=== PATIENT | male | born 1925 | race Caucasian/White ===

== ENCOUNTER 2017-02-13 02:28 | Emergency (ER) | payer OTHER ==
[2017-02-13 02:39] VITALS: BP 121/78
--- NOTE | 2017-02-13 02:49 | EDM.PDOC ---
ED HPI GENERAL MEDICAL PROBLEM - General Chief Complaint: Chest Pain Stated Complaint: [facility] Time Seen by Provider: 02/13/17 02:35 Source of Information: Reports: Patient, RN notes reviewed, Other (Nurse from Assisted Living) History Limitations: Reports: Other (Patient has dementia) - History of Present Illness INITIAL COMMENTS - FREE TEXT/NARRATIVE: The patient states that he was woken around 01:15 this morning with sharp left- sided chest pain. The pain is worse with deep breaths. He indicates the left side of his chest, inferior to his left axilla. He took 3 sublingual nitroglycerin, and when EMS arrived, they gave him 4 baby aspirin and one nitroglycerin spray. The patient reports that his pain continues. He denies associated symptoms, such as dyspnea nausea, diaphoresis, or sense of impending doom. The patient has a known history of CAD and NM is, however, due to dementia, he cannot reliably state whether or this pain is similar to prior cardiac pain. Chest Pain Score (Numeric/FACES): 5 - Related Data Allergies Allergy/AdvReac Type Severity Reaction Status Date / Time tapentadol Allergy Unknown Other Verified 06/03/16 05:38 iodine Allergy severe Verified 06/03/16 05:38 shellfish derived Allergy severe Verified 06/03/16 05:38 Home Meds: Home Meds Acetaminophen [Tylenol] 650 mg PO 0600,1400,2000 04/11/16 [History] Allopurinol [Zyloprim] 50 mg PO MOWEFR 04/11/16 [History] Carvedilol [Coreg] 12.5 mg PO 0800,1800 04/11/16 [History] Cholecalciferol (Vitamin D3) [Vitamin D3] 2,000 unit PO DAILY 04/11/16 [History] Clopidogrel [Plavix] 75 mg PO DAILY 04/11/16 [History] Donepezil [Aricept] 10 mg PO BEDTIME 04/11/16 [History] Finasteride 5 mg PO ACDINNER 04/11/16 [History] Furosemide 80 mg PO DAILY 04/11/16 [History] Levothyroxine Sodium [Levoxyl] 50 mcg PO DAILY 04/11/16 [History] Magnesium Oxide 400 mg PO DAILY 04/11/16 [History] Nitroglycerin [Nitrostat] 0.4 mg SL Q5M PRN 04/11/16 [History] Potassium Chloride [Klor-Con M20] 20 meq PO TID 04/11/16 [History] Pramipexole Di-HCl [Mirapex] 0.125 mg PO DAILY 04/11/16 [History] Pravastatin Sodium [Pravachol] 40 mg PO ACDINNER 04/11/16 [History] Tamsulosin HCl [Flomax] 0.8 mg PO 1800 04/11/16 [History] Aspirin [Ecotrin] 81 mg PO DAILY 04/19/16 [History] Carboxymethylcellulose Sodium [Refresh Tears 0.5%] 1 drop EYEBOTH 0800,1200, 2000 04/19/16 [History] Dextran 70/Hypromellose [Artificial Tears] 1 drop EYERT Q2H PRN 04/19/16 [ History] Dextromethorphan/guaiFENesin [Robitussin DM] 10 ml PO TID PRN 04/19/16 [History] Ranitidine [Zantac] 150 mg PO ACBREAKFAST 04/19/16 [History] Vit C/E/Zn/Coppr/Lutein/Zeaxan [Preservision Areds 2 Softgel] 2 cap PO ACDINNER 04/19/16 [History] Ferrous Sulfate 1 mg PO DAILY 08/31/16 [History] Metolazone 2.5 mg PO MOTH 08/31/16 [History] Furosemide [Lasix] 40 mg PO Q48H 02/13/17 [History] Gabapentin [Neurontin] 200 mg PO BID 02/13/17 [History] Sertraline [Zoloft] 25 mg PO DAILY 02/13/17 [History] Past Medical History HEENT History: Reports: Cataract, Hard of hearing, Impaired vision, Macular degeneration Cardiovascular History: Reports: Afib, CAD, Heart Failure, High cholesterol, [place] Respiratory History: Reports: COPD Gastrointestinal History: Reports: GERD Genitourinary History: Reports: BPH Musculoskeletal History: Reports: Gout, Osteoarthritis Neurological History: Reports: Alzheimers disease, CVA, Neuropathy, diabetic Endocrine/Metabolic History: Reports: Diabetes, type II Hematologic History: Reports: Anemia - Past Surgical History Cardiovascular Surgical History: Reports: Coronary artery stent GI Surgical History: Reports: Appendectomy Neurological Surgical History: Reports: Lumbar spine Social & Family History - Family History Family Medical History: Noncontributory - Tobacco Use Smoking Status *Q: Former Smoker Years of Tobacco use: 15 Packs/Tins Daily: 1 Used Tobacco, but Quit: Yes Month Tobacco Last Used: 40 yrs Second Hand Smoke Exposure: No - Caffeine Use Caffeine Use: Reports: Coffee Other Caffeine Use: 2 cups daily - Alcohol Use Days Per Week of Alcohol Use: 0 - Recreational Drug Use Recreational Drug Use: No - Living Situation & Occupation Living situation: Reports: extended care facility (Current living at [facility]) Occupation: retired ED ROS GENERAL - Review of Systems Review Of Systems: See Below Constitutional: Reports: no symptoms HEENT: Reports: No symptoms Respiratory: Reports: No Symptoms Cardiovascular: Reports: No symptoms Endocrine: Reports: no symptoms GI/Abdominal: Reports: No symptoms : Reports: no symptoms Musculoskeletal: Reports: no symptoms Skin: Reports: no symptoms Neurological: Reports: No Symptoms Psychiatric: Reports: No symptoms Hematologic/Lymphatic: Reports: no symptoms Immunologic: Reports: no symptoms ED EXAM, GENERAL - Physical Exam Exam: See Below Exam Limited By: No limitations General Appearance: alert, WD/WN, no apparent distress Eye Exam: bilateral eye: EOMI, normal inspection Ears: normal external exam, hearing grossly normal Ear Exam: bilateral ear: auricle normal Nose: normal inspection, no blood Throat/Mouth: Normal inspection, Normal lips, Normal voice, No airway compromise Head: atraumatic, normocephalic Neck: normal inspection, full range of motion Respiratory/Chest: no respiratory distress, lungs clear, normal breath sounds, no accessory muscle use, other (Reproducible tenderness to palpation along the left midaxillary line, at approximately the sixth intercostal space. No visible abnormality to this area, such as swelling, erythema, ecchymosis, or rash. No crepitus to palpation. No rub on auscultation of this area.) Cardiovascular: normal peripheral pulses, regular rate, rhythm, no edema, no gallop, no JVD, no murmur, no rub Peripheral Pulses: 4+: radial (L), radial (R) GI/Abdominal: normal bowel sounds, soft, non tender, no organomegaly, no distention, no abnormal bruit, no mass (Male) Exam: Deferred Rectal (Males) Exam: Deferred Extremities: normal inspection, normal range of motion, no pedal edema, normal capillary refill Neurological: alert, no motor/sensory deficits Psychiatric: normal affect Skin Exam: Warm, Dry, Intact, Normal color, No rash Lymphatic: no adenopathy EKG INTERPRETATION EKG Date: 02/13/17 Time: 02:33 Rhythm: a-fib Rate (beats/min): 74 QRS: other (V-paced) Comparison: no change (09/01/2016) Course - Vital Signs Last Recorded V/S: Last Vital Signs Temp 36.3 C 02/13/17 02:33 Pulse 74 02/13/17 02:33 Resp 10 L 02/13/17 02:33 BP 121/78 02/13/17 02:33 Pulse Ox 94 L 02/13/17 02:33 - Orders/Labs/Meds Orders: Active Orders 24 hr Category Date Time Status EKG Documentation Completion [RC] STAT Care 02/13/17 02:35 Active Chest 1V Frontal [CR] Stat Exams 02/13/17 02:36 Taken Labs: Laboratory Tests 02/13/17 02/13/17 02/13/17 Range/Units 02:20 02:20 02:20 WBC 5.40 (4.23-9.07) K/mm3 RBC 4.14 L (4.63-6.08) M/mm3 Hgb 12.4 L (13.7-17.5) gm/L Hct 38.7 L (40.1-51.0) % MCV 93.5 H (79.0-92.2) fl MCH 30.0 (25.7-32.2) pg MCHC 32.0 L (32.2-35.5) g/dl RDW Std Deviation 52.1 H (35.1-43.9) fL Plt Count 190 (163-337) K/mm3 MPV 9.4 (9.4-12.3) fl Neutrophils % (Manual) 53 (40-60) % Band Neutrophils % 0 (0-10) % Lymphocytes % (Manual) 32 (20-40) % Atypical Lymphs % 0 % Monocytes % (Manual) 11 H (2-10) % Eosinophils % (Manual) 3 (0.8-7.0) % Basophils % (Manual) 1 (0.2-1.2) Platelet Estimate Adequate Plt Morphology Comment See note Anisocytosis 1+ slight RBC Morph Comment Not Reportable PT 11.1 (8.0-13.0) SECONDS INR 1.02 APTT 25 (22-36) SECONDS D-Dimer, Quantitative 0.87 H (0.19-0.59) mg/L Sodium 140 (136-145) mEq/L Potassium 3.7 (3.5-5.1) mEq/L Chloride 100 (98-107) mEq/L Carbon Dioxide 33 H (21-32) mEq/L Anion Gap 10.7 (5-15) BUN 55 H (7-18) mg/dL Creatinine 1.8 H (0.7-1.3) mg/dL Est Cr Clr Drug Dosing TNP Estimated GFR (MDRD) 36 (>60) mL/min BUN/Creatinine Ratio 30.6 H (14-18) Glucose 101 (83-115) mg/dL Calcium 9.1 (8.5-10.1) mg/dL Total Bilirubin 0.5 (0.2-1.0) mg/dL AST 16 (15-37) U/L ALT 18 (16-63) U/L Alkaline Phosphatase 80 (46-116) U/L Troponin I 0.028 (0.00-0.056) ng/mL B-Natriuretic Peptide (0-100) pg/mL Total Protein 6.9 (6.4-8.2) g/dl Albumin 3.6 (3.4-5.0) g/dl Globulin 3.3 gm/dL Albumin/Globulin Ratio 1.1 (1-2) // Range/Units 02:20 WBC (4.23-9.07) K/mm3 RBC (4.63-6.08) M/mm3 Hgb (13.7-17.5) gm/L Hct (40.1-51.0) % MCV (79.0-92.2) fl MCH (25.7-32.2) pg MCHC (32.2-35.5) g/dl RDW Std Deviation (35.1-43.9) fL Plt Count (163-337) K/mm3 MPV (9.4-12.3) fl Neutrophils % (Manual) (40-60) % Band Neutrophils % (0-10) % Lymphocytes % (Manual) (20-40) % Atypical Lymphs % % Monocytes % (Manual) (2-10) % Eosinophils % (Manual) (0.8-7.0) % Basophils % (Manual) (0.2-1.2) Platelet Estimate Plt Morphology Comment Anisocytosis RBC Morph Comment PT (8.0-13.0) SECONDS INR APTT (22-36) SECONDS D-Dimer, Quantitative (0.19-0.59) mg/L Sodium (136-145) mEq/L Potassium (3.5-5.1) mEq/L Chloride (98-107) mEq/L Carbon Dioxide (21-32) mEq/L Anion Gap (5-15) BUN (7-18) mg/dL Creatinine (0.7-1.3) mg/dL Est Cr Clr Drug Dosing Estimated GFR (MDRD) (>60) mL/min BUN/Creatinine Ratio (14-18) Glucose (83-115) mg/dL Calcium (8.5-10.1) mg/dL Total Bilirubin (0.2-1.0) mg/dL AST (15-37) U/L ALT (16-63) U/L Alkaline Phosphatase (46-116) U/L Troponin I (0.00-0.056) ng/mL B-Natriuretic Peptide 279 H (0-100) pg/mL Total Protein (6.4-8.2) g/dl Albumin (3.4-5.0) g/dl Globulin gm/dL Albumin/Globulin Ratio (1-2) - Radiology Interpretation Free Text/Narrative:: Portable chest radiograph does not appear to demonstrate any acute abnormalities. Cardiac silhouette is at the upper limits of normal for an AP view. No pulmonary vascular congestion. No pleural effusions. No focal infiltrate. No pneumothorax. Left-sided single lead pacer noted. Formal read per the Radiologist pending. - Re-Assessments/Exams Free Text/Narrative Re-Assessment/Exam: 02/13/17 03:32 The patient's d-dimer is modestly elevated at 0.87, however, the patient is noted to have a renal dysfunction with a creatinine of 1.8, which, along with the patient's age, is likely responsible for the elevated D-dimer. Pulmonary embolus is not highly suspected, therefore a CT angiogram of the chest is not recommended. Based on the patient's history and physical examination, the patient's left sided chest pain is most likely musculoskeletal in etiology. Departure - Departure Time of Disposition: 03:36 Disposition: Home, Self-Care 01 Condition: good Clinical Impression: Left-sided chest wall pain Forms: ED Department Discharge Additional Instructions: Mr. Marino was seen in the emergency room for left-sided chest pain. On examination, his chest pain was reproducible to palpation of the left side of his chest. Workup in the ER included blood work, an ECG, and a chest x-ray. His entire workup was unremarkable. His chest pain appears to be musculoskeletal in etiology. We recommended Tylenol or ibuprofen as needed for discomfort. If this type of pain it occurs again, we DO NOT recommend he be given a nitroglycerin. If any other problems, please do not hesitate to return Mr. Marino to the ER. - My Orders Last 24 Hours: My Active Orders 02/13/17 02:35 EKG Documentation Completion [RC] STAT 02/13/17 02:36 Chest 1V Frontal [CR] Stat - Assessment/Plan Last 24 Hours: My Active Orders 02/13/17 02:35 EKG Documentation Completion [RC] STAT 02/13/17 02:36 Chest 1V Frontal [CR] Stat
--- NOTE | 2017-02-13 11:52 | CR ---
Chest: Frontal view of the chest was obtained. Comparison: Previous chest x-ray of 11/09/16. Heart size slightly enlarged. Tortuous thoracic aorta is seen. Previous cervical spine surgery noted. Surgical clips seen within the neck. Pacemaker is present. Lungs are clear with no acute infiltrates. Impression: 1. Mild cardiomegaly and other incidental findings. Nothing acute is identified on frontal chest x-ray. Diagnostic code #2
== END 2017-02-13 03:50 | disposition home or self-care (01) ==
LOC: JD.ED 02:28
DX: R07.9 Chest pain, unspecified (principal); I25.10 Atherosclerotic heart disease of native coronary artery without angina pectoris; I50.9 Heart failure, unspecified; E78.00 Pure hypercholesterolemia, unspecified; J44.9 Chronic obstructive pulmonary disease, unspecified; K21.9 Gastro-esophageal reflux disease without esophagitis; N40.0 Benign prostatic hyperplasia without lower urinary tract symptoms; M19.90 Unspecified osteoarthritis, unspecified site; G30.9 Alzheimer's disease, unspecified; F02.80 Dementia in other diseases classified elsewhere, unspecified severity, without behavioral disturbance, psychotic disturbance, mood disturbance, and anxiety; Z79.82 Long term (current) use of aspirin; Z79.899 Other long term (current) drug therapy; E11.40 Type 2 diabetes mellitus with diabetic neuropathy, unspecified; Z86.73 Personal history of transient ischemic attack (TIA), and cerebral infarction without residual deficits; D64.9 Anemia, unspecified; Z87.891 Personal history of nicotine dependence
CPT/HCPCS: 36415; 71010; 71010-26; 80053; 83880; 84484; 85025; 85379; 85610; 85730; 93005; 99284; 99285-25

== ENCOUNTER 2017-03-07 19:00 | Emergency (ER) | payer MEDICARE, OTHER ==
--- NOTE | 2017-03-07 19:33 | EDM.PDOC ---
ED HPI NEURO - General Chief Complaint: Neurological Problem Stated Complaint: FELL AND HIT HEAD Time Seen by Provider: 03/07/17 19:04 Source of Information: Reports: Patient, Family History Limitations: Reports: No limitations - History of Present Illness INITIAL COMMENTS - FREE TEXT/NARRATIVE: This is an 89-year-old male. Early this morning he apparently was in the bathroom and the patient states that he passed out and fell hitting the back of his head. The family is not certain whether he passed out or not. They did find him on the floor and he was unable to get up. He has been more lethargic over the last couple of days according to the family they're not certain if this was related to the new medication they started him on about a week ago which is carbidopa levodopa. He does not have a history of Parkinson's disease. They're not certain why he is on this medication. When I speak to the patient he is awake and alert complains of some pain on the back of his head where he hit his head. He denies any neck pain no back pain no buttock pain and no extremity pain. He does have a history of a pacemaker and he denies any chest pain or belly pain. They checked his urine on Friday or Friday of this week and it was normal according to the family. The family does states that he has been much weaker over the last couple of days. - Related Data Allergies/ADRs: Allergies Allergy/AdvReac Type Severity Reaction Status Date / Time tapentadol Allergy Unknown Other Verified 06/03/16 05:38 iodine Allergy severe Verified 06/03/16 05:38 shellfish derived Allergy severe Verified 06/03/16 05:38 Home Meds: Home Meds Acetaminophen [Tylenol] 650 mg PO TID 04/11/16 [History] Allopurinol [Zyloprim] 50 mg PO MOWEFR 04/11/16 [History] Carvedilol [Coreg] 12.5 mg PO BID 04/11/16 [History] Cholecalciferol (Vitamin D3) [Vitamin D3] 2,000 unit PO DAILY 04/11/16 [History] Clopidogrel [Plavix] 75 mg PO DAILY 04/11/16 [History] Donepezil [Aricept] 10 mg PO BEDTIME 04/11/16 [History] Finasteride 5 mg PO ACDINNER 04/11/16 [History] Furosemide 80 mg PO DAILY 04/11/16 [History] Levothyroxine Sodium [Levoxyl] 50 mcg PO DAILY 04/11/16 [History] Magnesium Oxide 400 mg PO DAILY 04/11/16 [History] Nitroglycerin [Nitrostat] 0.4 mg SL Q5M PRN 04/11/16 [History] Potassium Chloride [Klor-Con M20] 20 meq PO TID 04/11/16 [History] Pramipexole Di-HCl [Mirapex] 0.125 mg PO DAILY 04/11/16 [History] Pravastatin Sodium [Pravachol] 40 mg PO ACDINNER 04/11/16 [History] Tamsulosin HCl [Flomax] 0.8 mg PO 1800 04/11/16 [History] Aspirin [Ecotrin] 81 mg PO DAILY 04/19/16 [History] Carboxymethylcellulose Sodium [Refresh Tears 0.5%] 1 drop EYEBOTH 0800,1200, 2000 04/19/16 [History] Dextran 70/Hypromellose [Artificial Tears] 1 drop EYERT Q2H PRN 04/19/16 [ History] Dextromethorphan/guaiFENesin [Robitussin DM] 10 ml PO TID PRN 04/19/16 [History] Ranitidine [Zantac] 150 mg PO ACBREAKFAST 04/19/16 [History] Vit C/E/Zn/Coppr/Lutein/Zeaxan [Preservision Areds 2 Softgel] 2 cap PO ACDINNER 04/19/16 [History] Ferrous Sulfate 1 mg PO DAILY 08/31/16 [History] Metolazone 2.5 mg PO MOTH 08/31/16 [History] Furosemide [Lasix] 40 mg PO Q48H 02/13/17 [History] Gabapentin [Neurontin] 200 mg PO BID 02/13/17 [History] Sertraline [Zoloft] 25 mg PO DAILY 02/13/17 [History] Carbidopa/Levodopa [Carbidopa-Levo 10-100 mg Odt] 1 tab PO TID 03/07/17 [History ] Docusate Sodium [Colace] 100 mg PO BID 03/07/17 [History] Pramipexole Di-HCl [Mirapex] 0.125 mg PO BEDTIME 03/07/17 [History] Past Medical History HEENT History: Reports: Cataract, Hard of hearing, Impaired vision, Macular degeneration Cardiovascular History: Reports: Afib, CAD, Heart Failure, High cholesterol, [place] Respiratory History: Reports: COPD Gastrointestinal History: Reports: GERD Genitourinary History: Reports: BPH Musculoskeletal History: Reports: Gout, Osteoarthritis Neurological History: Reports: Alzheimers disease, CVA, Neuropathy, diabetic Psychiatric History: Reports: Dementia Endocrine/Metabolic History: Reports: Diabetes, type II Hematologic History: Reports: Anemia - Infectious Disease History Infectious Disease History: Reports: Other (see below) Other Infectious Disease History: unknown - Past Surgical History Cardiovascular Surgical History: Reports: Coronary artery stent GI Surgical History: Reports: Appendectomy Neurological Surgical History: Reports: Lumbar spine Dermatological Surgical History: Reports: None Social & Family History - Family History Family Medical History: Noncontributory - Tobacco Use Smoking Status *Q: Former Smoker Years of Tobacco use: 15 Packs/Tins Daily: 1 Used Tobacco, but Quit: Yes Month Tobacco Last Used: 40 yrs ago Second Hand Smoke Exposure: No - Caffeine Use Caffeine Use: Reports: Coffee Other Caffeine Use: 2 cups daily - Alcohol Use Days Per Week of Alcohol Use: 0 - Recreational Drug Use Recreational Drug Use: No - Living Situation & Occupation Living situation: Reports: extended care facility ([facility] living at [facility]) Occupation: retired ED ROS GENERAL - Review of Systems Review Of Systems: See Below Constitutional: Reports: weakness. Denies: fever, chills HEENT: Reports: No symptoms Respiratory: Denies: Shortness of Breath, Wheezing, Cough Cardiovascular: Denies: Chest pain GI/Abdominal: Denies: Abdominal pain : Reports: no symptoms Musculoskeletal: Reports: other (Patient has a bruise to the posterior scalp but no hematoma) Skin: Reports: other (Multiple bruising to his upper extremities noted) Neurological: Reports: Dizziness, Difficulty Walking, Weakness. Denies: Headache Psychiatric: Reports: No symptoms Hematologic/Lymphatic: Reports: no symptoms Immunologic: Reports: no symptoms ED EXAM, NEURO - Physical Exam Exam: See Below Exam Limited By: No limitations General Appearance: alert, no apparent distress Eye Exam: bilateral eye: normal inspection Ears: normal external exam Nose: normal inspection Throat/Mouth: Normal inspection, Normal voice, No airway compromise Head Exam: normocephalic, other (There is approximate silver dollar size bruise to his posterior scalp slightly to the right but there is no hematoma there is no laceration or bleeding noted) Neck: supple, non-tender Respiratory/Chest: no respiratory distress, lungs clear, normal breath sounds, other (Patient has a pacemaker in the left upper chest noted) Cardiovascular: regular rate, rhythm, no murmur, other (Monitor shows a paced rhythm) GI/Abdominal: soft, non tender, no distention Neurological: alert, other (The patient answers questions appropriately) Back Exam: normal inspection, full range of motion, other (There is no obvious bruising or contusions to his back, there is no midline thoracic or lumbar tenderness noted) Extremities: normal range of motion, other (He has multiple bruising to his upper extremities noted) Psychiatric: normal mood Skin Exam: Warm, Dry, Other (Very poor skin turgor) Course - Vital Signs Last Recorded V/S: Last Vital Signs Temp 97.6 F 03/07/17 19:08 Pulse 60 03/07/17 23:00 Resp 17 03/07/17 23:00 BP 137/63 03/07/17 23:00 Pulse Ox 95 03/07/17 23:00 - Orders/Labs/Meds Orders: Active Orders 24 hr Category Date Time Status EKG 12 Lead [EKG Documentation Completion] [RC] STAT Care 03/07/17 19:27 Active Chest 1V Frontal [CR] Stat Exams 03/07/17 19:26 Taken Sodium Chloride 0.9% [Normal Saline] 1,000 ml Med 03/07/17 20:30 Active IV ASDIRECTED Medication Orders Sodium Chloride (Normal Saline) 1,000 mls @ 500 mls/hr IV ASDIRECTED IAN Last Admin: 03/07/17 20:43 Dose: 500 mls/hr Labs: Laboratory Tests 03/07/17 03/07/17 03/07/17 Range/Units 19:39 19:39 22:54 WBC 9.03 (4.23-9.07) K/mm3 RBC 4.78 (4.63-6.08) M/mm3 Hgb 14.3 (13.7-17.5) gm/L Hct 43.7 (40.1-51.0) % MCV 91.4 (79.0-92.2) fl MCH 29.9 (25.7-32.2) pg MCHC 32.7 (32.2-35.5) g/dl RDW Std Deviation 49.2 H (35.1-43.9) fL Plt Count 154 L (163-337) K/mm3 MPV 9.0 L (9.4-12.3) fl Neut % (Auto) 74.3 H (34.0-67.9) % Lymph % (Auto) 15.4 L (21.8-53.1) % [place] % (Auto) 7.6 (5.3-12.2) % Eos % (Auto) 2.4 (0.8-7.0) Baso % (Auto) 0.1 (0.1-1.2) % Neut # (Auto) 6.70 H (1.78-5.38) K/mm3 Lymph # (Auto) 1.39 (1.32-3.57) K/mm3 [place] # (Auto) 0.69 (0.30-0.82) K/mm3 Eos # (Auto) 0.22 (0.04-0.54) K/mm3 Baso # (Auto) 0.01 (0.01-0.08) K/mm3 Sodium 138 138 (136-145) mEq/L Potassium 3.2 L 3.2 L (3.5-5.1) mEq/L Chloride 97 L 98 (98-107) mEq/L Carbon Dioxide 32 34 H (21-32) mEq/L Anion Gap 12.2 9.2 (5-15) BUN 79 H 76 H (7-18) mg/dL Creatinine 1.9 H 1.7 H (0.7-1.3) mg/dL Est Cr Clr Drug Dosing 28.93 32.33 mL/min Estimated GFR (MDRD) 34 38 (>60) mL/min BUN/Creatinine Ratio 41.6 H 44.7 H (14-18) Glucose 129 H 106 (83-115) mg/dL Calcium 9.3 8.6 (8.5-10.1) mg/dL Total Bilirubin 0.7 (0.2-1.0) mg/dL AST 15 (15-37) U/L ALT 10 L (16-63) U/L Alkaline Phosphatase 76 (46-116) U/L Troponin I 0.051 (0.00-0.056) ng/mL Total Protein 7.0 (6.4-8.2) g/dl Albumin 3.7 (3.4-5.0) g/dl Globulin 3.3 gm/dL Albumin/Globulin Ratio 1.1 (1-2) Meds: Medications Generic Name Dose Route Start Last Admin Trade Name Freq PRN Reason Stop Dose Admin Sodium Chloride 1,000 mls @ 500 mls/hr 03/07/17 20:30 03/07/17 20:43 Normal Saline IV 500 mls/hr ASDIRECTED IAN Administration Discontinued Medications Generic Name Dose Route Start Last Admin Trade Name Freq PRN Reason Stop Dose Admin Potassium Bicarbonate 25 meq 03/07/17 22:20 03/07/17 22:27 Effer-K PO 03/07/17 22:21 25 meq ONETIME ONE Administration - Radiology Interpretation Free Text/Narrative:: Chest x-ray does not show any acute changes. CT scan shows some mild soft tissue swelling of the posterior right scalp there is no obvious intracranial abnormality seen no skull fracture - Re-Assessments/Exams Free Text/Narrative Re-Assessment/Exam: 03/07/17 23:52 I spoke to the patient and the family regarding the dehydration as being part of the problem of his weakness. Also spoken about the BUN is elevation can cause weakness as well as confusion. I did give him a liter of fluids and noticed that there was a decrease slightly in the BUN as well the creatinine suggesting that these are repair will with by mouth fluid hydration. I also spoke to the family regarding his Lasix intake and his potassium intake and may need to followup with her family doctor to see if he can cut back on the Lasix since obviously the patient is not taking a lot of fluids and he is being dehydrated by the Lasix. Departure - Departure Time of Disposition: 23:53 Disposition: Home, Self-Care 01 Condition: fair Clinical Impression: Dehydration, moderate, Renal insufficiency, mild, Elevated BUN, Hypokalemia Forms: ED Department Discharge Additional Instructions: Began fluid hydration in the morning but around 3 PM or so cut back so he is not up at night time having to urinate, followup with his family doctor about modifying the Lasix since his fluid intake is much less the Lasix is dehydrating him, continue with the potassium as prescribed, return to the ER as needed - My Orders Last 24 Hours: My Active Orders 03/07/17 19:26 Chest 1V Frontal [CR] Stat 03/07/17 19:27 EKG 12 Lead [EKG Documentation Completion] [RC] STAT 03/07/17 20:30 Sodium Chloride 0.9% [Normal Saline] 1,000 ml IV ASDIRECTED - Assessment/Plan Last 24 Hours: My Active Orders 03/07/17 19:26 Chest 1V Frontal [CR] Stat 03/07/17 19:27 EKG 12 Lead [EKG Documentation Completion] [RC] STAT 03/07/17 20:30 Sodium Chloride 0.9% [Normal Saline] 1,000 ml IV ASDIRECTED
--- NOTE | 2017-03-07 20:18 | CT ---
Head CT Technique: Multiple axial sections through the brain were obtained. Intravenous contrast was not utilized. Comparison: Previous head CT study of 11/09/16. Findings: Ventricles along with basal cisterns and sulci over the convexities are moderately prominent. Mild areas of diminished density are noted within the periventricular and subcortical white matter compatible with small vessel ischemic demyelination change. Similar findings are seen within portions of the basal ganglia. No other abnormal parenchymal densities are seen. No evidence of intracranial hemorrhage is seen. No midline shift or mass effect is seen. Mild atherosclerotic calcification is seen within the carotid siphon. Mild soft tissue swelling is seen within the posterior right scalp. Bone window settings were reviewed which shows no skull fracture. Visualized sinuses are clear. Impression: 1. Mild soft tissue swelling within the posterior right scalp. 2. Senescent change as noted above which is fairly stable from previous head CT study. 3. No acute intracranial abnormality is seen. No skull fracture is seen. Diagnostic code #2
[2017-03-07] MEDS ORDERED: Sodium Chloride 0.9% 1,000 ML IV SCH (20:30)
[2017-03-07] MEDS ORDERED: Potassium Bicarbonate/Cit Ac 20 MEQ Effervescent Tab PO ONE (22:20)
[2017-03-07 23:00] VITALS: BP 137/63
--- NOTE | 2017-03-09 09:34 | CR ---
Chest: Portable view of the chest was obtained. Comparison: Previous chest x-ray of 02/13/17. Heart is mildly enlarged. Pacemaker is noted. Previous lower neck surgery is seen. Previous lower cervical spine surgery is noted. Lungs are clear with no acute infiltrates. Impression: 1. Incidental findings as described above. Nothing acute is identified on portable chest x-ray. Diagnostic code #2
== END 2017-03-08 00:08 | disposition home or self-care (01) ==
LOC: JD.ED 19:00
DX: S09.90XA Unspecified injury of head, initial encounter (principal); W18.30XA Fall on same level, unspecified, initial encounter; Y92.002 Bathroom of unspecified non-institutional (private) residence as the place of occurrence of the external cause; E87.6 Hypokalemia; E86.0 Dehydration; N18.4 Chronic kidney disease, stage 4 (severe); I48.91 Unspecified atrial fibrillation; I25.10 Atherosclerotic heart disease of native coronary artery without angina pectoris; I11.0 Hypertensive heart disease with heart failure; I50.9 Heart failure, unspecified; E78.00 Pure hypercholesterolemia, unspecified; J44.9 Chronic obstructive pulmonary disease, unspecified; N40.0 Benign prostatic hyperplasia without lower urinary tract symptoms; K21.9 Gastro-esophageal reflux disease without esophagitis; M19.90 Unspecified osteoarthritis, unspecified site; M10.9 Gout, unspecified; E11.40 Type 2 diabetes mellitus with diabetic neuropathy, unspecified; G30.9 Alzheimer's disease, unspecified; F02.80 Dementia in other diseases classified elsewhere, unspecified severity, without behavioral disturbance, psychotic disturbance, mood disturbance, and anxiety; Z86.73 Personal history of transient ischemic attack (TIA), and cerebral infarction without residual deficits; D64.9 Anemia, unspecified; Z88.8 Allergy status to other drugs, medicaments and biological substances; Z91.013 Allergy to seafood; Z79.899 Other long term (current) drug therapy; Z79.82 Long term (current) use of aspirin; Z95.5 Presence of coronary angioplasty implant and graft; Z87.891 Personal history of nicotine dependence
CPT/HCPCS: 36415; 70450; 71010; 80048; 80053; 84484; 85025; 93005; 96360; 96361; 99284; A9270; J7040

== ENCOUNTER 2017-04-08 08:18 | Inpatient (IN) | payer OTHER ==
[2017-04-08] MEDS ORDERED: Furosemide 40 MG/4 ML VIAL IVPUSH ONE (08:28)
[2017-04-08] MEDS ORDERED: Sodium Chloride 0.9% 10 ML Syringe FLUSH PRN (08:28)
--- NOTE | 2017-04-08 08:31 | EDM.PDOC ---
ED HPI GENERAL MEDICAL PROBLEM - General Chief Complaint: Respiratory Problem Stated Complaint: [facility] Time Seen by Provider: 04/08/17 08:26 Source of Information: Reports: Patient, EMS Notes Reviewed, Long-Term Records History Limitations: Reports: Respiratory Distress (moderate) - History of Present Illness INITIAL COMMENTS - FREE TEXT/NARRATIVE: 89-year-old male transferred from local senior living do to increasing edema and dyspnea developing overnight. Patient states he never slept all night because of shortness of breath. Patient suffers from chronic congestive heart failure. His health has been bleeding quite significantly over the last 6 months. Aortic stenosis. known coronary artery disease with ischemic component to his cardiomyopathy. He remains on Plavix at this time. He did receive an extra dose of oral Lasix 40 mg one o'clock in the morning which did not seem to help at all. Requiring 4 L of oxygen per nasal cannula to keep him at 94%. Denies cough or sputum production. Denies fever or chills. No hemoptysis. No appetite did not eat any breakfast this morning it's unclear whether he received any of his medications. Onset: Gradual (Over the last 2-3 days) Onset Date: 04/05/17 Duration: Hour(s): Location: Reports: Chest (Shortness of breath) Quality: Reports: Same as Previous Episode (This), Other Severity: Moderate Improves with: Reports: None Worsens with: Reports: Other, Movement (Supine position) Context: Denies: Activity, Exercise, Lifting, Sick Contact, Trauma, Other Associated Symptoms: Reports: Cough (Nonproductive), Loss of Appetite, Malaise, Shortness of Breath, Weakness. 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 (At 4 L per minute.) - Related Data Allergies Allergy/AdvReac Type Severity Reaction Status Date / Time iodine Allergy severe Verified 04/08/17 08:30 shellfish derived Allergy severe Verified 04/08/17 08:30 tape Allergy Cannot Uncoded 04/08/17 09:14 Remember Home Meds: Home Meds Acetaminophen [Tylenol] 650 mg PO Q8H 04/11/16 [History] Allopurinol [Zyloprim] 50 mg PO MOWEFR 04/11/16 [History] Carvedilol [Coreg] 12.5 mg PO BID 04/11/16 [History] Cholecalciferol (Vitamin D3) [Vitamin D3] 2,000 unit PO DAILY 04/11/16 [History] Donepezil [Aricept] 10 mg PO BEDTIME 04/11/16 [History] Finasteride 5 mg PO ACDINNER 04/11/16 [History] Furosemide 40 mg PO DAILY 04/11/16 [History] Levothyroxine Sodium [Levoxyl] 50 mcg PO DAILY 04/11/16 [History] Magnesium Oxide 400 mg PO DAILY 04/11/16 [History] Nitroglycerin [Nitrostat] 0.4 mg SL Q5M PRN 04/11/16 [History] Potassium Chloride [Klor-Con M20] 20 meq PO DAILY 04/11/16 [History] Pravastatin Sodium [Pravachol] 40 mg PO ACDINNER 04/11/16 [History] Tamsulosin HCl [Flomax] 0.8 mg PO 1800 04/11/16 [History] Carboxymethylcellulose Sodium [Refresh Tears 0.5%] 1 drop EYEBOTH TID 04/19/16 [ History] Dextromethorphan/guaiFENesin [Robitussin DM] 10 ml PO TID PRN 04/19/16 [History] Ranitidine [Zantac] 150 mg PO ACBREAKFAST 04/19/16 [History] Vit C/E/Zn/Coppr/Lutein/Zeaxan [Preservision Areds 2 Softgel] 2 cap PO ACDINNER 04/19/16 [History] Ferrous Sulfate 1 mg PO DAILY 08/31/16 [History] Gabapentin [Neurontin] 200 mg PO BID 02/13/17 [History] Sertraline [Zoloft] 25 mg PO DAILY 02/13/17 [History] Docusate Sodium [Colace] 100 mg PO BID 03/07/17 [History] Pramipexole Di-HCl [Mirapex] 0.125 mg PO BEDTIME 03/07/17 [History] Past Medical History HEENT History: Reports: Cataract, Hard of Hearing, Impaired Vision, Macular Degeneration Cardiovascular History: Reports: Afib, CAD, Heart Failure, High Cholesterol, OR Respiratory History: Reports: COPD Gastrointestinal History: Reports: GERD Genitourinary History: Reports: BPH Musculoskeletal History: Reports: Gout, Osteoarthritis Neurological History: Reports: Alzheimers Disease, CVA, Neuropathy, Diabetic Psychiatric History: Reports: Dementia Endocrine/Metabolic History: Reports: Diabetes, Type II Hematologic History: Reports: Anemia - Infectious Disease History Infectious Disease History: Reports: Other (See Below) Other Infectious Disease History: unknown - Past Surgical History Cardiovascular Surgical History: Reports: Coronary Artery Stent Neurological Surgical History: Reports: Lumbar Spine Musculoskeletal Surgical History: Reports: Other (See Below) Social & Family History - Family History Family Medical History: Noncontributory - Tobacco Use Smoking Status *Q: Former Smoker Years of Tobacco use: 15 Packs/Tins Daily: 1 Used Tobacco, but Quit: Yes Month Tobacco Last Used: 40 yrs ago Second Hand Smoke Exposure: No - Caffeine Use Caffeine Use: Reports: Coffee Other Caffeine Use: 2 cups daily - Alcohol Use Days Per Week of Alcohol Use: 0 - Recreational Drug Use Recreational Drug Use: No - Living Situation & Occupation Living situation: Reports: Extended Care Facility Occupation: Retired ED ROS GENERAL - Review of Systems Review Of Systems: See Below Constitutional: Reports: Malaise, Weakness, Fatigue, Decreased Appetite. Denies : Fever, Chills, Weight Loss HEENT: Reports: No Symptoms Respiratory: Reports: Shortness of Breath, Cough. Denies: Wheezing, Pleuritic Chest Pain, Sputum (Nonproductive), Hemoptysis, Other Cardiovascular: Reports: Dyspnea on Exertion, Edema (Chronically chronic pain the Lortab), Orthopnea (Last tonight). Denies: No Symptoms, Chest Pain, Claudication, Lightheadedness, Palpitations, PND, Syncope, Other Endocrine: Reports: Fatigue GI/Abdominal: Reports: Constipation, Decreased Appetite : Reports: Frequency, Other (Nocturia x4) Musculoskeletal: Reports: Back Pain Skin: Reports: Pallor (Mild), Bruising (Bruise easily from being on Plavix.) Neurological: Reports: Confusion (At time), Difficulty Walking, Weakness, Gait Disturbance. Denies: Headache, Numbness, Syncope, Tingling, Tremors, Trouble Speaking, Change in Speech Psychiatric: Reports: No Symptoms Hematologic/Lymphatic: Reports: No Symptoms Immunologic: Reports: No Symptoms ED EXAM, GENERAL - Physical Exam Exam: See Below Exam Limited By: Respiratory Distress (Limits his ability to carry on a conversation. He can speak in 2-3 word sentences.) General Appearance: Alert, Other (Appears to have lost weight since I had seen him last. His teeth are not in today.) Eye Exam: Bilateral Eye: Normal Inspection (Mild blepharal pallor.) Ears: Normal TMs Throat/Mouth: Normal Inspection, Normal Lips, Normal Oropharynx, Other (Tongue is moist. Edentulous) Head: Atraumatic, Normocephalic Neck: Normal Inspection, Supple, Non-Tender, Full Range of Motion. No: Lymphadenopathy (L), Lymphadenopathy (R) Respiratory/Chest: Respiratory Distress (Moderate), Rales (Didn't get rales lower 20% of both lung ba.), Other (Pacemaker present in left upper anterior chest.). No: Lungs Clear, Rhonchi, Wheezing, Splinting Cardiovascular: Regular Rate, Rhythm, No Gallop, JVD (3 cm below the right angle of the mandible the), Systolic Murmur (Grade 2 pansystolic ejection murmur heard best at left lower sternal border compatible with aortic stenosis.) . No: Normal Peripheral Pulses (Pulses in his feet are not palpable due to dependent edema.) Peripheral Pulses: 0: Posterior Tibial (L) (Obscured by edema.), Posterior Tibial (R), Dorsalis Pedis (L), Dorsalis Pedis (R), 1+: Femoral (L), Femoral (R) , 2+: Carotid (L), Carotid (R) GI/Abdominal: Hepatomegaly (Liver edge is palpable on deep inspiration.), Other (The abdomen is distended and diffusely tympanitic to percussion compatible with aerophagia. It is firm to palpation.). No: Guarding, Rigid, Rebound, Tender (Male) Exam: No Hernia Back Exam: Normal Inspection, Full Range of Motion. No: CVA Tenderness (L), CVA Tenderness (R) Extremities: Pedal Edema (3+ pitting edema both lower extremities.) Neurological: Alert, CN II-XII Intact (Disoriented to time), Normal Cognition, No Motor/Sensory Deficits. No: Oriented, Normal Gait, Normal Reflexes Psychiatric: Flat Affect Skin Exam: Warm, Dry, Intact, Ecchymosis (Both upper [place]'s on the dorsal aspect.) Course - Vital Signs Last Recorded V/S: Last Vital Signs Temp 36.7 C 04/08/17 08:47 Pulse 64 04/08/17 08:47 Resp 20 04/08/17 08:47 BP 125/66 04/08/17 08:47 Pulse Ox 95 04/08/17 08:47 - Orders/Labs/Meds Orders: Active Orders 24 hr Category Date Time Status EKG Documentation Completion [RC] STAT Care 04/08/17 08:28 Active Oxygen Therapy [RC] ASDIRECTED Care 04/08/17 08:27 Active Peripheral IV Care [RC] . DIRECTED Care 04/08/17 08:28 Active Sodium Chloride 0.9% [Saline Flush] Med 04/08/17 08:28 Active 10 ml FLUSH ASDIRECTED PRN Peripheral IV Insertion Adult [OM.PC] Stat Oth 04/08/17 08:28 Ordered Medication Orders Sodium Chloride (Saline Flush) 10 ml FLUSH ASDIRECTED PRN PRN Reason: Keep Vein Open Last Admin: 04/08/17 09:11 Dose: 10 ml Labs: Laboratory Tests 04/08/17 04/08/17 04/08/17 Range/Units 08:25 08:25 08:25 WBC 9.74 H (4.23-9.07) K/mm3 RBC 3.66 L (4.63-6.08) M/mm3 Hgb 11.2 L (13.7-17.5) gm/L Hct 35.7 L (40.1-51.0) % MCV 97.5 H (79.0-92.2) fl MCH 30.6 (25.7-32.2) pg MCHC 31.4 L (32.2-35.5) g/dl RDW Std Deviation 59.9 H (35.1-43.9) fL Plt Count 185 (163-337) K/mm3 MPV 8.4 L (9.4-12.3) fl Neutrophils % (Manual) 87 H (40-60) % Band Neutrophils % 0 (0-10) % Lymphocytes % (Manual) 8 L (20-40) % Atypical Lymphs % 0 % Monocytes % (Manual) 5 (2-10) % Eosinophils % (Manual) 0 L (0.8-7.0) % Basophils % (Manual) 0 L (0.2-1.2) Platelet Estimate Adequate Plt Morphology Comment Normal Hypochromasia 1+ slight Poikilocytosis 1+ slight Anisocytosis 1+ slight RBC Morph Comment Not Reportable PT 10.7 (8.0-13.0) SECONDS INR 0.98 Sodium (136-145) mEq/L Potassium (3.5-5.1) mEq/L Chloride (98-107) mEq/L Carbon Dioxide (21-32) mEq/L Anion Gap (5-15) BUN (7-18) mg/dL Creatinine (0.7-1.3) mg/dL Est Cr Clr Drug Dosing mL/min Estimated GFR (MDRD) (>60) mL/min BUN/Creatinine Ratio (14-18) Glucose (83-115) mg/dL Calcium (8.5-10.1) mg/dL Magnesium (1.8-2.4) mg/dl Total Bilirubin (0.2-1.0) mg/dL AST (15-37) U/L ALT (16-63) U/L Alkaline Phosphatase (46-116) U/L CK-MB (CK-2) (0-3.6) ng/ml Troponin I (0.00-0.056) ng/mL C-Reactive Protein (<1.0) mg/dL B-Natriuretic Peptide 1118 H (0-100) pg/mL Total Protein (6.4-8.2) g/dl Albumin (3.4-5.0) g/dl Globulin gm/dL Albumin/Globulin Ratio (1-2) TSH 3rd Generation (0.358-3.74) uIU/mL Urine Color (Yellow) Urine Appearance (Clear) Urine pH (5.0-8.0) Ur Specific [place] (1.005-1.030) Urine Protein (Negative) Urine Glucose (UA) (Negative) Urine Ketones (Negative) Urine Occult Blood (Negative) Urine Nitrite (Negative) Urine Bilirubin (Negative) Urine Urobilinogen (0.2-1.0) Ur Leukocyte Esterase (Negative) Urine RBC (0-5) /hpf Urine WBC (0-5) /hpf Ur Epithelial Cells (0-5) /hpf Urine Bacteria (FEW) /hpf Urine Mucus (FEW) /hpf 04/08/17 04/08/17 Range/Units 08:25 08:55 WBC (4.23-9.07) K/mm3 RBC (4.63-6.08) M/mm3 Hgb (13.7-17.5) gm/L Hct (40.1-51.0) % MCV (79.0-92.2) fl MCH (25.7-32.2) pg MCHC (32.2-35.5) g/dl RDW Std Deviation (35.1-43.9) fL Plt Count (163-337) K/mm3 MPV (9.4-12.3) fl Neutrophils % (Manual) (40-60) % Band Neutrophils % (0-10) % Lymphocytes % (Manual) (20-40) % Atypical Lymphs % % Monocytes % (Manual) (2-10) % Eosinophils % (Manual) (0.8-7.0) % Basophils % (Manual) (0.2-1.2) Platelet Estimate Plt Morphology Comment Hypochromasia Poikilocytosis Anisocytosis RBC Morph Comment PT (8.0-13.0) SECONDS INR Sodium 142 (136-145) mEq/L Potassium 4.3 (3.5-5.1) mEq/L Chloride 105 (98-107) mEq/L Carbon Dioxide 29 (21-32) mEq/L Anion Gap 12.3 (5-15) BUN 22 H (7-18) mg/dL Creatinine 1.4 H (0.7-1.3) mg/dL Est Cr Clr Drug Dosing 39.26 mL/min Estimated GFR (MDRD) 48 (>60) mL/min BUN/Creatinine Ratio 15.7 (14-18) Glucose 112 (83-115) mg/dL Calcium 8.9 (8.5-10.1) mg/dL Magnesium 1.9 (1.8-2.4) mg/dl Total Bilirubin 0.9 (0.2-1.0) mg/dL AST 18 (15-37) U/L ALT 32 (16-63) U/L Alkaline Phosphatase 91 (46-116) U/L CK-MB (CK-2) 0.5 (0-3.6) ng/ml Troponin I 0.086 H* (0.00-0.056) ng/mL C-Reactive Protein 3.3 H* (<1.0) mg/dL B-Natriuretic Peptide (0-100) pg/mL Total Protein 6.1 L (6.4-8.2) g/dl Albumin 3.0 L (3.4-5.0) g/dl Globulin 3.1 gm/dL Albumin/Globulin Ratio 1.0 (1-2) TSH 3rd Generation 1.231 (0.358-3.74) uIU/mL Urine Color Yellow (Yellow) Urine Appearance Clear (Clear) Urine pH 6.5 (5.0-8.0) Ur Specific [place] 1.020 (1.005-1.030) Urine Protein Negative (Negative) Urine Glucose (UA) Negative (Negative) Urine Ketones Negative (Negative) Urine Occult Blood Negative (Negative) Urine Nitrite Negative (Negative) Urine Bilirubin Negative (Negative) Urine Urobilinogen 0.2 (0.2-1.0) Ur Leukocyte Esterase Negative (Negative) Urine RBC 0-5 (0-5) /hpf Urine WBC 0-5 (0-5) /hpf Ur Epithelial Cells 0-5 (0-5) /hpf Urine Bacteria Occasional (FEW) /hpf Urine Mucus Not seen (FEW) /hpf Meds: Medications Generic Name Dose Route Start Last Admin Trade Name Freq PRN Reason Stop Dose Admin Sodium Chloride 10 ml 04/08/17 08:28 04/08/17 09:11 Saline Flush FLUSH 10 ml ASDIRECTED PRN Administration Keep Vein Open Discontinued Medications Generic Name Dose Route Start Last Admin Trade Name Freq PRN Reason Stop Dose Admin Furosemide 60 mg 04/08/17 08:28 04/08/17 09:01 Lasix IVPUSH 04/08/17 08:29 60 mg NOW ONE Administration - Radiology Interpretation Free Text/Narrative:: 89-year-old male presents to the ED with an exacerbation of his congestive heart failure. He's had orthopnea for the last 2 nights. He is requiring 4 L of oxygen by nasal cannula to maintain O2 sats of 94% at present. He has rales in the lower 20% of both lung ba. JVD are are elevated. His chronic aortic stenosis. Plan peripheral IV lock. Lasix 60 mg IV. Continue O2 as above. Routine labs include serum magnesium and BNP one view chest x-ray to be obtained. - Re-Assessments/Exams Free Text/Narrative Re-Assessment/Exam: 04/08/17 08:54 ECG shows 100% paced rhythm at 60 per minute. No further analysis attempted. Portable chest x-ray reveals moderate cardiomegaly with evidence of bilateral lower lobar vascular congestion and prominence of pulmonary arteries. No true pleural effusion evident. 04/08/17 09:25 white count is 9.74-87% neutrophils no bands. Hemoglobin is low 11.2 MCV is 97.5. Hematocrit is 35.7. Platelets 185,000. Coags are normal. Sodium 142 potassium 4.3 anion gap is 12.3 BUN is 22 creatinine is 1.4. EGFR is 48. Troponin is elevated at 0.086. CK-MB fraction is normal at 0.5. CRP is 3.3. Albumin is 3.0 magnesium is 1.9. BNP is pending. 04/08/17 09:26 urinalysis is normal. You're having trouble in the lab with BNP and analysis. It is done an i-STAT and is 1118. Out of her contact Dr. Espinal in regards to admission to the hospital for acute exacerbation of heart failure. Elevated troponin appears to be secondary to the congestive heart failure. 04/08/17 10:[address] 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 Admitting diagnoses acute exacerbation of congestive heart failure. Departure - Departure Time of Disposition: 11:00 Disposition: Admitted As Inpatient 68 Condition: poor Clinical Impression: Mild renal insufficiency, Hypoxia Acute exacerbation of CHF (congestive heart failure) Qualifiers: Congestive heart failure type: diastolic Qualified Code(s): I50.33 - Acute on chronic diastolic (congestive) heart failure - Discharge Information - My Orders Last 24 Hours: My Active Orders 04/08/17 08:27 Oxygen Therapy [RC] ASDIRECTED 04/08/17 08:28 EKG Documentation Completion [RC] STAT Peripheral IV Care [RC] . DIRECTED Sodium Chloride 0.9% [Saline Flush] 10 ml FLUSH ASDIRECTED PRN Peripheral IV Insertion Adult [OM.PC] Stat - Assessment/Plan Last 24 Hours: My Active Orders 04/08/17 08:27 Oxygen Therapy [RC] ASDIRECTED 04/08/17 08:28 EKG Documentation Completion [RC] STAT Peripheral IV Care [RC] . DIRECTED Sodium Chloride 0.9% [Saline Flush] 10 ml FLUSH ASDIRECTED PRN Peripheral IV Insertion Adult [OM.PC] Stat
--- NOTE | 2017-04-08 09:51 | CR ---
Chest: Portable view of the chest was obtained. Comparison: Previous chest x-ray of 03/07/17. Heart size is slightly enlarged. Upper mediastinum appears within normal limits for portable technique. Pacemaker noted. Lung markings are increased on both sides which are more prominent than on previous exam. Lungs otherwise are clear. Previous cervical spine surgery and lumbar spine surgery noted. Scattered degenerative endplate spurring also seen within the spine. Impression: 1. Increased lung markings felt compatible with pulmonary vascular congestion. This is an interval change from prior exam and compatible with mild CHF. 2. Other incidental findings as noted above. Diagnostic code #3
--- NOTE | 2017-04-08 13:03 | PCM.HP ---
H&P History of Present Illness - General Date of Service: 04/08/17 Source of Information: Patient, Family, Provider History Limitations: Reports: No Limitations - History of Present Illness Initial Comments - Free Text/Narative: 89 year old male with history of CHF, [facility]. Meds were adjusted reportedly to avoid dehydration, this history was provided by his children who were present during the ED visit. He had had his diuretic adjusted, and as a result had less dehydration, however slow progressive weight gain occurred. He was to have been weighed daily at the SNF, this reportedly was not done. He is 16 pounds heavier as a result per his son and daughter. Based on the described activity level, he is NYHA, class III. Aggressive invasive management for heart disease is declined; he is DNR/DNI Onset of Symptoms: Reports: Gradual Duration of Symptoms: Reports: Week(s):, Getting Worse Location: Reports: Lower Extremity, Left, Lower Extremity, Right, Generalized Quality: Reports: Same as Previous Episode Severity: Moderate Improves with: Reports: Medication Worsens with: Reports: None Associated Symptoms: Reports: Shortness of Breath, Weakness - Related Data Allergies/Adverse Reactions: Allergies Allergy/AdvReac Type Severity Reaction Status Date / Time iodine Allergy severe Verified 04/08/17 08:30 shellfish derived Allergy severe Verified 04/08/17 08:30 tape Allergy Cannot Uncoded 04/08/17 09:14 Remember Home Medications: Home Meds Acetaminophen [Tylenol] 650 mg PO Q8H 04/11/16 [History] Allopurinol [Zyloprim] 50 mg PO MOWEFR 04/11/16 [History] Carvedilol [Coreg] 12.5 mg PO BID 04/11/16 [History] Cholecalciferol (Vitamin D3) [Vitamin D3] 2,000 unit PO DAILY 04/11/16 [History] Donepezil [Aricept] 10 mg PO BEDTIME 04/11/16 [History] Finasteride 5 mg PO ACDINNER 04/11/16 [History] Furosemide 40 mg PO DAILY 04/11/16 [History] Levothyroxine Sodium [Levoxyl] 50 mcg PO DAILY 04/11/16 [History] Magnesium Oxide 400 mg PO DAILY 04/11/16 [History] Nitroglycerin [Nitrostat] 0.4 mg SL Q5M PRN 04/11/16 [History] Potassium Chloride [Klor-Con M20] 20 meq PO DAILY 04/11/16 [History] Pravastatin Sodium [Pravachol] 40 mg PO ACDINNER 04/11/16 [History] Tamsulosin HCl [Flomax] 0.8 mg PO 1800 04/11/16 [History] Carboxymethylcellulose Sodium [Refresh Tears 0.5%] 1 drop EYEBOTH TID 04/19/16 [ History] Dextromethorphan/guaiFENesin [Robitussin DM] 10 ml PO TID PRN 04/19/16 [History] Ranitidine [Zantac] 150 mg PO ACBREAKFAST 04/19/16 [History] Vit C/E/Zn/Coppr/Lutein/Zeaxan [Preservision Areds 2 Softgel] 2 cap PO ACDINNER 04/19/16 [History] Ferrous Sulfate 1 mg PO DAILY 08/31/16 [History] Gabapentin [Neurontin] 200 mg PO BID 02/13/17 [History] Sertraline [Zoloft] 25 mg PO DAILY 02/13/17 [History] Docusate Sodium [Colace] 100 mg PO BID 03/07/17 [History] Pramipexole Di-HCl [Mirapex] 0.125 mg PO BEDTIME 03/07/17 [History] Past Medical History HEENT History: Reports: Cataract, Hard of Hearing, Impaired Vision, Macular Degeneration Cardiovascular History: Reports: Afib, CAD, Heart Failure, High Cholesterol, [place] Respiratory History: Reports: COPD Gastrointestinal History: Reports: GERD Genitourinary History: Reports: BPH Musculoskeletal History: Reports: Gout, Osteoarthritis Neurological History: Reports: Alzheimers Disease, CVA, Neuropathy, Diabetic Psychiatric History: Reports: Dementia Endocrine/Metabolic History: Reports: Diabetes, Type II Hematologic History: Reports: Anemia - Infectious Disease History Infectious Disease History: Reports: Other (See Below) Other Infectious Disease History: unknown - Past Surgical History Cardiovascular Surgical History: Reports: Coronary Artery Stent Neurological Surgical History: Reports: Lumbar Spine Musculoskeletal Surgical History: Reports: Other (See Below) Social & Family History - Family History Family Medical History: Noncontributory - Tobacco Use Smoking Status *Q: Former Smoker Years of Tobacco use: 15 Packs/Tins Daily: 1 Used Tobacco, but Quit: Yes Month Tobacco Last Used: 40 yrs ago Second Hand Smoke Exposure: No - Caffeine Use Caffeine Use: Reports: Coffee Other Caffeine Use: 2 cups daily - Alcohol Use Days Per Week of Alcohol Use: 0 - Recreational Drug Use Recreational Drug Use: No - Living Situation & Occupation Living situation: Reports: Extended Care Facility Occupation: Retired H&P Review of Systems - Review of Systems: Review Of Systems: See Below General: Reports: Malaise, Weakness, Decreased Appetite, Weight Gain Pulmonary: Reports: Shortness of Breath, Cough Cardiovascular: Reports: Dyspnea on Exertion, PND, Edema Gastrointestinal: Reports: Decreased Appetite Genitourinary: Reports: No Symptoms Musculoskeletal: Reports: No Symptoms Skin: Reports: No Symptoms Psychiatric: Reports: No Symptoms Neurological: Reports: Confusion, Difficulty Walking Hematologic/Lymphatic: Reports: No Symptoms Immunologic: Reports: No Symptoms Exam - Exam Exam: See Below - Vital Signs Vital Signs: Last Vital Signs Temp 36.5 C 04/08/17 11:49 Pulse 63 04/08/17 11:50 Resp 20 04/08/17 11:49 BP 139/91 H 04/08/17 11:50 Pulse Ox 97 04/08/17 11:50 Weight: 92.533 kg - Exam Quality Assessment: Supplemental Oxygen General: Alert, Oriented, Cooperative HEENT: EOMI, Nares Patent, Normal Nasal Septum, Pupils Equal, Pupils Reactive, PERRLA Neck: Supple, Trachea Midline Lungs: Normal Respiratory Effort, Decreased Breath Sounds, Crackles, Wheezing Cardiovascular: Regular Rate, Regular Rhythm, Systolic Murmur Abdomen: Normal Bowel Sounds, Soft (Male) Exam: Deferred Rectal (Males) Exam: Deferred Back Exam: Normal Inspection Extremities: Normal Inspection, Edema (2-3+) Skin: Warm Neurological: Cranial Nerves Intact Neuro Extensive - Mental Status: Alert, Oriented x3, Normal Mood/Affect, Normal Cognition, Memory Intact Neuro Extensive - Motor, Sensory, Reflexes: CN II-XII Intact Psychiatric: Alert, Normal Affect, Normal Mood - Patient Data Result Diagrams: 04/08/17 14:15 04/08/17 08:25 *Q Meaningful Use (ADM) - VTE *Q VTE Criteria *Q: - Stroke *Q Stroke Criteria *Q: - AMI *Q AMI Criteria *Q: - Problem List (1) Aortic stenosis SNOMED Code(s): 70848019 ICD Code: I35.0 - NONRHEUMATIC AORTIC (VALVE) STENOSIS Status: Acute Current Visit: Yes (2) Acute exacerbation of CHF (congestive heart failure) SNOMED Code(s): 68207535 ICD Code: I50.9 - HEART FAILURE, UNSPECIFIED Status: Acute Current Visit : Yes Qualifiers: Congestive heart failure type: diastolic Qualified Code(s): I50.33 - Acute on chronic diastolic (congestive) heart failure (3) Hypoxia SNOMED Code(s): 098094569, 793997571 ICD Code: R09.02 - HYPOXEMIA Status: Acute Current Visit: Yes (4) Mild renal insufficiency SNOMED Code(s): 091557355 ICD Code: N28.9 - DISORDER OF KIDNEY AND URETER, UNSPECIFIED Status: Acute Current Visit: Yes (5) Chronic renal insufficiency, stage IV (severe) SNOMED Code(s): 25023720 ICD Code: N18.4 - CHRONIC KIDNEY DISEASE, STAGE 4 (SEVERE) Status: Acute Current Visit: No (6) COPD (chronic obstructive pulmonary disease) SNOMED Code(s): 65109023 ICD Code: J44.9 - CHRONIC OBSTRUCTIVE PULMONARY DISEASE, UNSPECIFIED Status : Acute Current Visit: Yes (7) GERD (gastroesophageal reflux disease) SNOMED Code(s): 816572255 ICD Code: K21.9 - GASTRO-ESOPHAGEAL REFLUX DISEASE WITHOUT ESOPHAGITIS Status: Acute Current Visit: Yes (8) A-fib SNOMED Code(s): 16506412 ICD Code: I48.91 - UNSPECIFIED ATRIAL FIBRILLATION Status: Acute Current Visit: Yes (9) Diabetes mellitus SNOMED Code(s): 94010072 ICD Code: E11.9 - TYPE 2 DIABETES MELLITUS WITHOUT COMPLICATIONS Status: Acute Current Visit: Yes (10) Hyperlipidemia associated with type 2 diabetes mellitus SNOMED Code(s): 716308238360, 883948084217 ICD Code: E11.69 - TYPE 2 DIABETES MELLITUS WITH OTHER SPECIFIED COMPLICATION ; E78.5 - HYPERLIPIDEMIA, UNSPECIFIED Status: Acute Current Visit: Yes (11) Alzheimers disease SNOMED Code(s): 64353676 ICD Code: G30.9 - ALZHEIMER'S DISEASE, UNSPECIFIED Status: Acute Current Visit: Yes (12) CAD (coronary artery disease) SNOMED Code(s): 75965940 ICD Code: I25.10 - ATHSCL HEART DISEASE OF [place] CORONARY ARTERY W/O ANG PCTRS Status: Acute Current Visit: Yes Problem List Initiated/Reviewed/Updated: Yes Orders Last 24hrs: Medication Orders Sodium Chloride (Saline Flush) 10 ml FLUSH ASDIRECTED PRN PRN Reason: Keep Vein Open Last Admin: 04/08/17 09:11 Dose: 10 ml Assessment/Plan Comment:: Impression: Acute on chronic CHF exacerbation, NYHA class III; SNF did not weigh patient as instructed; iatrogenic cause of acute CHF History of CAD/NH History of A Fib Valvular heart disease, Chronic HTN CKD, IV CAD/NH with PCI S/P PPM Alzheimer Disease BPH Anemia Plan: Ischemia protocol Infectious evaluation for CHF, TBD Diurese Oral Fluid restrict Obtain most recent echo report CHF teaching Home meds Correct electrolytes DVT/GI prophylaxis
[2017-04-08] MEDS ORDERED: guaiFENesin/Dextromethorphan 100-10 MG/5 ML Soln 5 ML Cup PO PRN (13:07)
[2017-04-08] MEDS ORDERED: Nitroglycerin 0.4 MG Tab.SL SL PRN (13:07)
[2017-04-08] MEDS ORDERED: Bumetanide 1 MG/4 ML MDV IVPUSH ONE (13:33)
[2017-04-08] MEDS: Finasteride 5 MG Tab PO SCH (15:47)
[2017-04-08] MEDS: Tamsulosin 0.4 MG Cap.ER PO SCH (17:50)
[2017-04-08] MEDS: Acetaminophen 325 MG Tab PO SCH (21:15)
[2017-04-08] MEDS: Carvedilol 12.5 MG Tab PO SCH (21:16)
[2017-04-08] MEDS: Pramipexole 0.25 MG Tab PO SCH (21:16)
[2017-04-08] MEDS: Gabapentin 100 MG Cap PO SCH (21:16)
[2017-04-08] MEDS: Docusate Sodium 100 MG Cap PO SCH (21:16)
[2017-04-08] MEDS: Donepezil 10 MG Tab PO SCH (21:17)
[2017-04-09] MEDS: Acetaminophen 325 MG Tab PO SCH ×3 (06:09→21:19)
[2017-04-09] MEDS: Levothyroxine 50 MCG Tab PO SCH (06:09)
[2017-04-09] MEDS: Magnesium Oxide 400 MG Tab PO SCH (08:00)
[2017-04-09] MEDS: Enoxaparin 40 MG/0.4 ML Syringe SUBCUT SCH (08:01)
[2017-04-09] MEDS: Carvedilol 12.5 MG Tab PO SCH ×2 (08:01→21:19)
[2017-04-09] MEDS: Sertraline 25 MG Tab PO SCH (08:01)
[2017-04-09] MEDS: Docusate Sodium 100 MG Cap PO SCH ×2 (08:01→21:19)
[2017-04-09] MEDS: Ferrous Sulfate 325 MG Tab PO SCH (08:01)
[2017-04-09] MEDS: Gabapentin 100 MG Cap PO SCH ×2 (08:01→21:19)
[2017-04-09] MEDS: Cholecalciferol (Vitamin D3) 1,000 Unit Tab PO SCH (08:01)
[2017-04-09] MEDS ORDERED: Ferrous Sulfate 325 MG Tab PO SCH (09:00)
[2017-04-09] MEDS ORDERED: Bumetanide 1 MG/4 ML MDV IVPUSH ONE ×2 (10:35→18:38)
[2017-04-09] MEDS ORDERED: Magnesium Sulfate/Water 2 GM in Premix Bag 1 BAG IV ONE (10:40)
[2017-04-09] MEDS: Clopidogrel 75 MG Tab PO SCH (10:56)
[2017-04-09] MEDS: Spironolactone 25 MG Tab PO SCH (13:06)
[2017-04-09] MEDS: Allopurinol 100 MG Tab PO SCH (13:12)
--- NOTE | 2017-04-09 14:25 | PCM.PN ---
- General Info Date of Service: 04/09/17 Functional Status: Reports: pain controlled, tolerating diet, urinating - Review of Systems General: Reports: Weakness, Fatigue HEENT: Reports: no symptoms Pulmonary: Reports: shortness of breath Cardiovascular: Reports: No Symptoms Gastrointestinal: Reports: No symptoms Genitourinary: Reports: no symptoms Musculoskeletal: Reports: no symptoms Skin: Reports: no symptoms Neurological: Reports: No Symptoms Psychiatric: Reports: no symptoms - Patient Data Vitals - most recent: Last Vital Signs Temp 37.1 C 04/09/17 04:01 Pulse 61 04/09/17 08:01 Resp 12 04/09/17 04:01 BP 132/70 04/09/17 08:01 Pulse Ox 94 L 04/09/17 08:00 Weight - most recent: 91.308 kg I&O - last 24 hours: Intake & Output 04/08/17 04/09/17 04/09/17 22:59 06:59 14:59 Intake Total 525 300 170 Output Total 725 950 Balance -200 -650 170 Lab Results last 24 hrs: Laboratory Results - last 24 hr 04/08/17 04/08/17 04/08/17 Range/Units 14:15 17:29 19:45 WBC 8.24 (4.23-9.07) K/mm3 RBC 3.72 L (4.63-6.08) M/mm3 Hgb 11.6 L (13.7-17.5) gm/L Hct 36.2 L (40.1-51.0) % MCV 97.3 H (79.0-92.2) fl MCH 31.2 (25.7-32.2) pg MCHC 32.0 L (32.2-35.5) g/dl RDW Std Deviation 60.8 H (35.1-43.9) fL Plt Count 182 (163-337) K/mm3 MPV 8.7 L (9.4-12.3) fl Neut % (Auto) 82.3 H (34.0-67.9) % Lymph % (Auto) 11.5 L (21.8-53.1) % [place] % (Auto) 5.6 (5.3-12.2) % Eos % (Auto) 0.4 L (0.8-7.0) Baso % (Auto) 0.1 (0.1-1.2) % Neut # (Auto) 6.78 H (1.78-5.38) K/mm3 Lymph # (Auto) 0.95 L (1.32-3.57) K/mm3 [place] # (Auto) 0.46 (0.30-0.82) K/mm3 Eos # (Auto) 0.03 L (0.04-0.54) K/mm3 Baso # (Auto) 0.01 (0.01-0.08) K/mm3 Sodium (136-145) mEq/L Potassium (3.5-5.1) mEq/L Chloride (98-107) mEq/L Carbon Dioxide (21-32) mEq/L Anion Gap (5-15) BUN (7-18) mg/dL Creatinine (0.7-1.3) mg/dL Est Cr Clr Drug Dosing mL/min Estimated GFR (MDRD) (>60) mL/min BUN/Creatinine Ratio (14-18) Glucose (83-115) mg/dL POC Glucose 125 H (83-110) mg/dL Calcium (8.5-10.1) mg/dL Magnesium (1.8-2.4) mg/dl MRSA (PCR) Negative 04/08/17 04/09/17 04/09/17 Range/Units 21:16 05:15 05:15 WBC 5.72 (4.23-9.07) K/mm3 RBC 3.40 L (4.63-6.08) M/mm3 Hgb 10.4 L (13.7-17.5) gm/L Hct 33.1 L (40.1-51.0) % MCV 97.4 H (79.0-92.2) fl MCH 30.6 (25.7-32.2) pg MCHC 31.4 L (32.2-35.5) g/dl RDW Std Deviation 59.7 H (35.1-43.9) fL Plt Count 186 (163-337) K/mm3 MPV 9.0 L (9.4-12.3) fl Neut % (Auto) 76.5 H (34.0-67.9) % Lymph % (Auto) 15.0 L (21.8-53.1) % [place] % (Auto) 6.8 (5.3-12.2) % Eos % (Auto) 1.2 (0.8-7.0) Baso % (Auto) 0.2 (0.1-1.2) % Neut # (Auto) 4.37 (1.78-5.38) K/mm3 Lymph # (Auto) 0.86 L (1.32-3.57) K/mm3 [place] # (Auto) 0.39 (0.30-0.82) K/mm3 Eos # (Auto) 0.07 (0.04-0.54) K/mm3 Baso # (Auto) 0.01 (0.01-0.08) K/mm3 Sodium 140 (136-145) mEq/L Potassium 3.8 (3.5-5.1) mEq/L Chloride 102 (98-107) mEq/L Carbon Dioxide 33 H (21-32) mEq/L Anion Gap 8.8 (5-15) BUN 25 H (7-18) mg/dL Creatinine 1.3 (0.7-1.3) mg/dL Est Cr Clr Drug Dosing 42.28 mL/min Estimated GFR (MDRD) 52 (>60) mL/min BUN/Creatinine Ratio 19.2 H (14-18) Glucose 101 (83-115) mg/dL POC Glucose 107 (83-110) mg/dL Calcium 8.8 (8.5-10.1) mg/dL Magnesium 1.9 (1.8-2.4) mg/dl MRSA (PCR) 04/09/17 04/09/17 Range/Units 06:10 10:39 WBC (4.23-9.07) K/mm3 RBC (4.63-6.08) M/mm3 Hgb (13.7-17.5) gm/L Hct (40.1-51.0) % MCV (79.0-92.2) fl MCH (25.7-32.2) pg MCHC (32.2-35.5) g/dl RDW Std Deviation (35.1-43.9) fL Plt Count (163-337) K/mm3 MPV (9.4-12.3) fl Neut % (Auto) (34.0-67.9) % Lymph % (Auto) (21.8-53.1) % [place] % (Auto) (5.3-12.2) % Eos % (Auto) (0.8-7.0) Baso % (Auto) (0.1-1.2) % Neut # (Auto) (1.78-5.38) K/mm3 Lymph # (Auto) (1.32-3.57) K/mm3 [place] # (Auto) (0.30-0.82) K/mm3 Eos # (Auto) (0.04-0.54) K/mm3 Baso # (Auto) (0.01-0.08) K/mm3 Sodium (136-145) mEq/L Potassium (3.5-5.1) mEq/L Chloride (98-107) mEq/L Carbon Dioxide (21-32) mEq/L Anion Gap (5-15) BUN (7-18) mg/dL Creatinine (0.7-1.3) mg/dL Est Cr Clr Drug Dosing mL/min Estimated GFR (MDRD) (>60) mL/min BUN/Creatinine Ratio (14-18) Glucose (83-115) mg/dL POC Glucose 95 157 H (83-110) mg/dL Calcium (8.5-10.1) mg/dL Magnesium (1.8-2.4) mg/dl MRSA (PCR) Med Orders - Current: Current Medications Acetaminophen (Tylenol) 650 mg PO Q8H [facility] Last Admin: 04/09/17 13:07 Dose: 650 mg Allopurinol (Zyloprim) 50 mg PO MOWEFR [facility] Last Admin: 04/09/17 13:12 Dose: 50 mg Carvedilol (Coreg) 12.5 mg PO BID [facility] Last Admin: 04/09/17 08:01 Dose: 12.5 mg Cholecalciferol (Vitamin D3) 2,000 units PO DAILY [facility] Last Admin: 04/09/17 08:01 Dose: 2,000 units Clopidogrel Bisulfate (Plavix) 75 mg PO DAILY [facility] Last Admin: 04/09/17 10:56 Dose: 75 mg Docusate Sodium (Colace) 100 mg PO BID [facility] Last Admin: 04/09/17 08:01 Dose: 100 mg Donepezil HCl (Aricept) 10 mg PO BEDTIME [facility] Last Admin: 04/08/17 21:17 Dose: 10 mg Enoxaparin Sodium (Lovenox) 40 mg SUBCUT DAILY [facility] Last Admin: 04/09/17 08:01 Dose: 40 mg Ferrous Sulfate (Ferrous Sulfate) 325 mg PO DAILY [facility] Last Admin: 04/09/17 08:01 Dose: 325 mg Finasteride (Proscar) 5 mg PO ACDINNER [facility] Last Admin: 04/08/17 15:47 Dose: 5 mg Gabapentin (Neurontin) 200 mg PO BID [facility] Last Admin: 04/09/17 08:01 Dose: 200 mg Guaifenesin/Phenylephrine HCl (Robitussin Dm) 5 ml PO TID PRN PRN Reason: Cough Levothyroxine Sodium (Synthroid) 50 mcg PO ACBRK [facility] Last Admin: 04/09/17 06:09 Dose: 50 mcg Magnesium Oxide (Magnesium Oxide) 400 mg PO DAILY [facility] Last Admin: 04/09/17 08:00 Dose: 400 mg Nitroglycerin (Nitrostat) 0.4 mg SL Q5M PRN PRN Reason: Chest Pain Pramipexole Dihydrochloride (Mirapex) 0.125 mg PO BEDTIME [facility] Last Admin: 04/08/17 21:16 Dose: 0.125 mg Sertraline HCl (Zoloft) 25 mg PO DAILY [facility] Last Admin: 04/09/17 08:01 Dose: 25 mg Simvastatin ([facility]ocor) [facility] Sodium Chloride (Saline Flush) 10 ml FLUSH ASDIRECTED PRN PRN Reason: Keep Vein Open Last Admin: 04/08/17 09:11 Dose: 10 ml Spironolactone (Aldactone) 25 mg PO DAILY [facility] Last Admin: 04/09/17 13:06 Dose: 25 mg Tamsulosin HCl (Flomax) 0.8 mg PO DAILY@1800 [facility] Last Admin: 04/08/17 17:50 Dose: 0.8 mg Discontinued Medications Bumetanide (Bumex) 1 mg IVPUSH ONETIME ONE Stop: 04/08/17 13:34 Last Admin: 04/08/17 14:49 Dose: 1 mg Bumetanide (Bumex) 1 mg IVPUSH ONETIME ONE Stop: 04/09/17 10:36 Last Admin: 04/09/17 11:03 Dose: 1 mg Ferrous Sulfate (Ferrous Sulfate) 1 mg PO DAILY [facility] Furosemide (Lasix) 60 mg IVPUSH NOW ONE Stop: 04/08/17 08:29 Last Admin: 04/08/17 09:01 Dose: 60 mg Magnesium Sulfate 2 gm/ Premix 50 mls @ 25 mls/hr IV ONETIME ONE Stop: 04/09/17 12:39 Last Admin: 04/09/17 10:55 Dose: 25 mls/hr - Exam Quality Assessment: urine catheter (accurate I/Os), DVT prophylaxis General: alert, oriented, cooperative, no acute distress HEENT: Pupils equal, Pupils reactive, EOMI Neck: supple, trachea midline, no JVD Lungs: Normal respiratory effort, Decreased breath sounds, Crackles Cardiovascular: Regular Rate, Regular Rhythm Abdomen: bowel sounds present, soft, no tenderness, no distension (Male) Exam: Deferred Back Exam: Normal Inspection Extremities: normal pulses Skin: warm Neurological: no new focal deficit, normal speech Psy/Mental Status: alert, normal affect, normal mood - Problem List & Annotations (1) Aortic stenosis SNOMED Code(s): 25877890 Code(s): I35.0 - NONRHEUMATIC AORTIC (VALVE) STENOSIS Status: Acute Current Visit: Yes (2) Acute exacerbation of CHF (congestive heart failure) SNOMED Code(s): 20674260 Code(s): I50.9 - HEART FAILURE, UNSPECIFIED Status: Acute Current Visit: Yes Qualifiers: Congestive heart failure type: diastolic Qualified Code(s): I50.33 - Acute on chronic diastolic (congestive) heart failure (3) Hypoxia SNOMED Code(s): 220920299, 181094747 Code(s): R09.02 - HYPOXEMIA Status: Acute Current Visit: Yes (4) Mild renal insufficiency SNOMED Code(s): 112277406 Code(s): N28.9 - DISORDER OF KIDNEY AND URETER, UNSPECIFIED Status: Acute Current Visit: Yes (5) Chronic renal insufficiency, stage IV (severe) SNOMED Code(s): 65303829 Code(s): N18.4 - CHRONIC KIDNEY DISEASE, STAGE 4 (SEVERE) Status: Acute Current Visit: No (6) COPD (chronic obstructive pulmonary disease) SNOMED Code(s): 59737125 Code(s): J44.9 - CHRONIC OBSTRUCTIVE PULMONARY DISEASE, UNSPECIFIED Status : Acute Current Visit: Yes (7) GERD (gastroesophageal reflux disease) SNOMED Code(s): 522151142 Code(s): K21.9 - GASTRO-ESOPHAGEAL REFLUX DISEASE WITHOUT ESOPHAGITIS Status: Acute Current Visit: Yes (8) A-fib SNOMED Code(s): 43387203 Code(s): I48.91 - UNSPECIFIED ATRIAL FIBRILLATION Status: Acute Current Visit: Yes (9) Diabetes mellitus SNOMED Code(s): 50476431 Code(s): E11.9 - TYPE 2 DIABETES MELLITUS WITHOUT COMPLICATIONS Status: Acute Current Visit: Yes (10) Hyperlipidemia associated with type 2 diabetes mellitus SNOMED Code(s): 534899407766, 999512554791 Code(s): E11.69 - TYPE 2 DIABETES MELLITUS WITH OTHER SPECIFIED COMPLICATION ; E78.5 - HYPERLIPIDEMIA, UNSPECIFIED Status: Acute Current Visit: Yes (11) Alzheimers disease SNOMED Code(s): 65263607 Code(s): G30.9 - ALZHEIMER'S DISEASE, UNSPECIFIED Status: Acute Current Visit: Yes (12) CAD (coronary artery disease) SNOMED Code(s): 15054685 Code(s): I25.10 - ATHSCL HEART DISEASE OF [place] CORONARY ARTERY W/O ANG PCTRS Status: Acute Current Visit: Yes - Problem List Review Problem List Initiated/Reviewed/Updated: Yes - My Orders Last 24 Hours: My Active Orders 04/08/17 13:26 Urinary Catheter Assessment [RC] ASDIRECTED 04/08/17 14:00 Consult to Occupational Therapy [OT Evaluation and Treatment] [CONS] Routine Consult to Physical Therapy [PT Evaluation and Treatment] [CONS] Routine 04/08/17 15:00 Galdamez Catheter Insertion [Insert Urinary Catheter] [OM.PC] Q24H 04/08/17 16:00 Consult to Tong Hooker [CONS] Routine Finasteride [Proscar] 5 mg PO ACDINNER 04/08/17 17:10 Blood Glucose Check, Bedside [RC] QIDACANDBED 04/08/17 18:00 Tamsulosin [Flomax] 0.8 mg PO DAILY@1800 04/08/17 18:07 Antiembolic Devices [RC] 10,22 ARYAN Hose [Antiembolic Hose] [OM.PC] Routine 04/08/17 21:00 Carvedilol [Coreg] 12.5 mg PO BID Docusate Sodium [Colace] 100 mg PO BID Donepezil [Aricept] 10 mg PO BEDTIME Gabapentin [Neurontin] 200 mg PO BID Pramipexole [Mirapex] 0.125 mg PO BEDTIME 04/08/17 22:00 Acetaminophen [Tylenol] 650 mg PO Q8H 04/09/17 06:00 Levothyroxine [Synthroid] 50 mcg PO ACBRK 04/09/17 09:00 Cholecalciferol (Vitamin D3) [Vitamin D3] 2,000 units PO DAILY Enoxaparin [Lovenox] 40 mg SUBCUT DAILY Ferrous Sulfate 325 mg PO DAILY Magnesium Oxide 400 mg PO DAILY Sertraline [Zoloft] 25 mg PO DAILY 04/09/17 10:45 Clopidogrel [Plavix] 75 mg PO DAILY 04/09/17 13:00 Spironolactone [Aldactone] 25 mg PO DAILY 04/09/17 13:07 Allopurinol [Zyloprim] 50 mg PO MOWEFR 04/09/17 16:00 Simvastatin [Zocor] 20 mg PO ACDINNER 04/10/17 05:00 B-TYPE NATRIURETIC PEPTIDE,BNP [CHEM] Routine BMP [BASIC METABOLIC PANEL,BMP] [CHEM] DAILY MAGNESIUM [CHEM] DAILY 04/10/17 07:00 CBC W/O DIFF,HEMOGRAM [HEME] MOTH@0700 04/10/17 13:16 CBC WITH AUTO DIFF [HEME] DAILY 04/11/17 05:00 BMP [BASIC METABOLIC PANEL,BMP] [CHEM] DAILY MAGNESIUM [CHEM] DAILY 04/11/17 13:16 CBC WITH AUTO DIFF [HEME] DAILY 04/12/17 05:00 BMP [BASIC METABOLIC PANEL,BMP] [CHEM] DAILY MAGNESIUM [CHEM] DAILY 04/12/17 13:16 CBC WITH AUTO DIFF [HEME] DAILY 04/14/17 07:00 CBC W/O DIFF,HEMOGRAM [HEME] MOTH@0700 04/17/17 07:00 CBC W/O DIFF,HEMOGRAM [HEME] MOTH@0704/21/17 07:00 CBC W/O DIFF,HEMOGRAM [HEME] MOTH@0700 04/24/17 07:00 CBC W/O DIFF,HEMOGRAM [HEME] MOTH@0700 04/28/17 07:00 CBC W/O DIFF,HEMOGRAM [HEME] MOTH@0700 - Plan Plan:: Impression: Acute on chronic CHF exacerbation, NYHA class III; SNF did not weigh patient as instructed; iatrogenic cause of acute CHF History of CAD/IA History of A Fib Valvular heart disease, ARIANNE need CPAP settings. Chronic HTN CKD, IV CAD/IA with PCI S/P PPM Alzheimer Disease BPH Anemia Plan: Ischemia protocol Infectious evaluation for CHF, TBD Diurese, Bumex 1mg IV as tolerated Oral Fluid restrict Obtain most recent echo report CHF teaching Home meds Correct electrolytes DVT/GI prophylaxis
[2017-04-09] MEDS: Finasteride 5 MG Tab PO SCH (16:17)
[2017-04-09] MEDS: Simvastatin 20 MG Tab PO SCH (16:17)
[2017-04-09] MEDS: Tamsulosin 0.4 MG Cap.ER PO SCH (18:27)
[2017-04-09] MEDS: Donepezil 10 MG Tab PO SCH (21:19)
[2017-04-09] MEDS: Pramipexole 0.25 MG Tab PO SCH (21:20)
[2017-04-10] MEDS: Acetaminophen 325 MG Tab PO SCH ×4 (06:44→21:00)
[2017-04-10] MEDS: Levothyroxine 50 MCG Tab PO SCH (06:44)
[2017-04-10] MEDS ORDERED: Clopidogrel 75 MG Tab PO SCH (09:00)
[2017-04-10] MEDS: Cholecalciferol (Vitamin D3) 1,000 Unit Tab PO SCH (10:05)
[2017-04-10] MEDS: Carvedilol 12.5 MG Tab PO SCH ×2 (10:05→20:09)
[2017-04-10] MEDS: Ferrous Sulfate 325 MG Tab PO SCH (10:05)
[2017-04-10] MEDS: Sertraline 25 MG Tab PO SCH (10:06)
[2017-04-10] MEDS: Gabapentin 100 MG Cap PO SCH ×2 (10:06→20:07)
[2017-04-10] MEDS: Clopidogrel 75 MG Tab PO SCH (10:07)
[2017-04-10] MEDS: Spironolactone 25 MG Tab PO SCH (10:07)
[2017-04-10] MEDS: Magnesium Oxide 400 MG Tab PO SCH (10:07)
[2017-04-10] MEDS: Docusate Sodium 100 MG Cap PO SCH ×2 (10:07→20:10)
[2017-04-10] MEDS: Enoxaparin 40 MG/0.4 ML Syringe SUBCUT SCH (10:08)
[2017-04-10] MEDS ORDERED: Bumetanide 1 MG/4 ML MDV IVPUSH ONE (10:35)
--- NOTE | 2017-04-10 10:52 | PCM.PN ---
- General Info Date of Service: 04/10/17 Functional Status: Reports: pain controlled, tolerating diet, ambulating, urinating - Review of Systems General: Reports: No Symptoms HEENT: Reports: no symptoms Pulmonary: Reports: no symptoms Cardiovascular: Reports: No Symptoms Gastrointestinal: Reports: No symptoms Genitourinary: Reports: no symptoms Musculoskeletal: Reports: no symptoms Skin: Reports: no symptoms Neurological: Reports: No Symptoms Psychiatric: Reports: no symptoms - Patient Data Vitals - most recent: Last Vital Signs Temp 36.5 C 04/10/17 07:35 Pulse 60 04/10/17 10:05 Resp 16 04/10/17 07:35 BP 136/71 04/10/17 10:05 Pulse Ox 95 04/10/17 07:35 Weight - most recent: 88.178 kg I&O - last 24 hours: Intake & Output 04/09/17 04/10/17 04/10/17 22:59 06:59 14:59 Intake Total 930 200 220 Output Total 1500 950 Balance -570 -750 220 Lab Results last 24 hrs: Laboratory Results - last 24 hr 04/09/17 04/09/17 04/09/17 Range/Units 16:32 16:52 21:47 Sodium (136-145) mEq/L Potassium (3.5-5.1) mEq/L Chloride (98-107) mEq/L Carbon Dioxide (21-32) mEq/L Anion Gap (5-15) BUN (7-18) mg/dL Creatinine (0.7-1.3) mg/dL Est Cr Clr Drug Dosing mL/min Estimated GFR (MDRD) (>60) mL/min BUN/Creatinine Ratio (14-18) Glucose (83-115) mg/dL POC Glucose 158 H 143 H 124 H (83-110) mg/dL Calcium (8.5-10.1) mg/dL Magnesium (1.8-2.4) mg/dl B-Natriuretic Peptide (0-100) pg/mL 04/10/17 04/10/17 04/10/17 Range/Units 06:40 06:40 07:16 Sodium 141 (136-145) mEq/L Potassium 4.1 (3.5-5.1) mEq/L Chloride 103 (98-107) mEq/L Carbon Dioxide 31 (21-32) mEq/L Anion Gap 11.1 (5-15) BUN 37 H (7-18) mg/dL Creatinine 1.4 H (0.7-1.3) mg/dL Est Cr Clr Drug Dosing 39.26 mL/min Estimated GFR (MDRD) 48 (>60) mL/min BUN/Creatinine Ratio 26.4 H (14-18) Glucose 105 (83-115) mg/dL POC Glucose 112 H (83-110) mg/dL Calcium 8.7 (8.5-10.1) mg/dL Magnesium 2.2 (1.8-2.4) mg/dl B-Natriuretic Peptide 670 H (0-100) pg/mL Med Orders - Current: Current Medications Acetaminophen (Tylenol) 650 mg PO Q8H [facility] Last Admin: 04/10/17 06:44 Dose: 650 mg Allopurinol (Zyloprim) 50 mg PO MOWEFR [facility] Last Admin: 04/09/17 13:12 Dose: 50 mg Carvedilol (Coreg) 12.5 mg PO BID [facility] Last Admin: 04/10/17 10:05 Dose: 12.5 mg Cholecalciferol (Vitamin D3) 2,000 units PO DAILY [facility] Last Admin: 04/10/17 10:05 Dose: 2,000 units Clopidogrel Bisulfate (Plavix) 75 mg PO DAILY [facility] Last Admin: 04/10/17 10:07 Dose: 75 mg Docusate Sodium (Colace) 100 mg PO BID [facility] Last Admin: 04/10/17 10:07 Dose: 100 mg Donepezil HCl (Aricept) 10 mg PO BEDTIME [facility] Last Admin: 04/09/17 21:19 Dose: 10 mg Enoxaparin Sodium (Lovenox) 40 mg SUBCUT DAILY [facility] Last Admin: 04/10/17 10:08 Dose: 40 mg Ferrous Sulfate (Ferrous Sulfate) 325 mg PO DAILY [facility] Last Admin: 04/10/17 10:05 Dose: 325 mg Finasteride (Proscar) 5 mg PO ACDINNER [facility] Last Admin: 04/09/17 16:17 Dose: 5 mg Gabapentin (Neurontin) 200 mg PO BID [facility] Last Admin: 04/10/17 10:06 Dose: 200 mg Guaifenesin/Phenylephrine HCl (Robitussin Dm) 5 ml PO TID PRN PRN Reason: Cough Levothyroxine Sodium (Synthroid) 50 mcg PO ACBRK [facility] Last Admin: 04/10/17 06:44 Dose: 50 mcg Magnesium Oxide (Magnesium Oxide) 400 mg PO DAILY [facility] Last Admin: 04/10/17 10:07 Dose: 400 mg Nitroglycerin (Nitrostat) 0.4 mg SL Q5M PRN PRN Reason: Chest Pain Pramipexole Dihydrochloride (Mirapex) 0.125 mg PO BEDTIME [facility] Last Admin: 04/09/17 21:20 Dose: 0.125 mg Sertraline HCl (Zoloft) 25 mg PO DAILY [facility] Last Admin: 04/10/17 10:06 Dose: 25 mg Simvastatin (Zocor) 20 mg PO ACDINNER [facility] Last Admin: 04/09/17 16:17 Dose: 20 mg Sodium Chloride (Saline Flush) 10 ml FLUSH ASDIRECTED PRN PRN Reason: Keep Vein Open Last Admin: 04/08/17 09:11 Dose: 10 ml Spironolactone (Aldactone) 25 mg PO DAILY [facility] Last Admin: 04/10/17 10:07 Dose: 25 mg Tamsulosin HCl (Flomax) 0.8 mg PO DAILY@1800 [facility] Last Admin: 04/09/17 18:27 Dose: 0.8 mg Discontinued Medications Bumetanide (Bumex) 1 mg IVPUSH ONETIME ONE Stop: 04/08/17 13:34 Last Admin: 04/08/17 14:49 Dose: 1 mg Bumetanide (Bumex) 1 mg IVPUSH ONETIME ONE Stop: 04/09/17 10:36 Last Admin: 04/09/17 11:03 Dose: 1 mg Bumetanide (Bumex) 1 mg IVPUSH ONETIME ONE Stop: 04/09/17 18:39 Last Admin: 04/09/17 18:27 Dose: 1 mg Bumetanide (Bumex) 1 mg IVPUSH ONETIME ONE Stop: 04/10/17 10:36 Last Admin: 04/10/17 10:04 Dose: 1 mg Clopidogrel Bisulfate (Plavix) 75 mg PO DAILY [facility] Ferrous Sulfate (Ferrous Sulfate) 1 mg PO DAILY [facility] Furosemide (Lasix) 60 mg IVPUSH NOW ONE Stop: 04/08/17 08:29 Last Admin: 04/08/17 09:01 Dose: 60 mg Magnesium Sulfate 2 gm/ Premix 50 mls @ 25 mls/hr IV ONETIME ONE Stop: 04/09/17 12:39 Last Admin: 04/09/17 10:55 Dose: 25 mls/hr - Exam Quality Assessment: urine catheter, DVT prophylaxis General: alert, oriented, cooperative, no acute distress HEENT: Pupils equal, Pupils reactive, EOMI Neck: supple, trachea midline Lungs: Normal respiratory effort, Decreased breath sounds Cardiovascular: Regular Rate, Regular Rhythm (Male) Exam: Deferred Back Exam: Normal Inspection Extremities: normal pulses Skin: warm Neurological: no new focal deficit, normal speech Psy/Mental Status: alert, normal affect, normal mood - Problem List & Annotations (1) Aortic stenosis SNOMED Code(s): 96072472 Code(s): I35.0 - NONRHEUMATIC AORTIC (VALVE) STENOSIS Status: Acute Current Visit: Yes (2) Acute exacerbation of CHF (congestive heart failure) SNOMED Code(s): 86529256 Code(s): I50.9 - HEART FAILURE, UNSPECIFIED Status: Acute Current Visit: Yes Qualifiers: Congestive heart failure type: diastolic Qualified Code(s): I50.33 - Acute on chronic diastolic (congestive) heart failure (3) Hypoxia SNOMED Code(s): 381567495, 784138729 Code(s): R09.02 - HYPOXEMIA Status: Acute Current Visit: Yes (4) Mild renal insufficiency SNOMED Code(s): 568458120 Code(s): N28.9 - DISORDER OF KIDNEY AND URETER, UNSPECIFIED Status: Acute Current Visit: Yes (5) Chronic renal insufficiency, stage IV (severe) SNOMED Code(s): 03098071 Code(s): N18.4 - CHRONIC KIDNEY DISEASE, STAGE 4 (SEVERE) Status: Acute Current Visit: No (6) COPD (chronic obstructive pulmonary disease) SNOMED Code(s): 06477980 Code(s): J44.9 - CHRONIC OBSTRUCTIVE PULMONARY DISEASE, UNSPECIFIED Status : Acute Current Visit: Yes (7) GERD (gastroesophageal reflux disease) SNOMED Code(s): 299877626 Code(s): K21.9 - GASTRO-ESOPHAGEAL REFLUX DISEASE WITHOUT ESOPHAGITIS Status: Acute Current Visit: Yes (8) A-fib SNOMED Code(s): 13879030 Code(s): I48.91 - UNSPECIFIED ATRIAL FIBRILLATION Status: Acute Current Visit: Yes (9) Diabetes mellitus SNOMED Code(s): 64720697 Code(s): E11.9 - TYPE 2 DIABETES MELLITUS WITHOUT COMPLICATIONS Status: Acute Current Visit: Yes (10) Hyperlipidemia associated with type 2 diabetes mellitus SNOMED Code(s): 054542759435, 788955835115 Code(s): E11.69 - TYPE 2 DIABETES MELLITUS WITH OTHER SPECIFIED COMPLICATION ; E78.5 - HYPERLIPIDEMIA, UNSPECIFIED Status: Acute Current Visit: Yes (11) Alzheimers disease SNOMED Code(s): 88028397 Code(s): G30.9 - ALZHEIMER'S DISEASE, UNSPECIFIED Status: Acute Current Visit: Yes (12) CAD (coronary artery disease) SNOMED Code(s): 52154298 Code(s): I25.10 - ATHSCL HEART DISEASE OF [place] CORONARY ARTERY W/O ANG PCTRS Status: Acute Current Visit: Yes - Problem List Review Problem List Initiated/Reviewed/Updated: Yes - My Orders Last 24 Hours: My Active Orders 04/09/17 10:45 Clopidogrel [Plavix] 75 mg PO DAILY 04/09/17 13:00 Spironolactone [Aldactone] 25 mg PO DAILY 04/09/17 13:07 Allopurinol [Zyloprim] 50 mg PO MOWEFR 04/09/17 16:00 Simvastatin [Zocor] 20 mg PO ACDINNER 04/10/17 09:50 Echo Comp wo Cont [US] Routine 04/10/17 13:16 CBC WITH AUTO DIFF [HEME] DAILY 04/11/17 05:00 BMP [BASIC METABOLIC PANEL,BMP] [CHEM] DAILY MAGNESIUM [CHEM] DAILY 04/11/17 13:16 CBC WITH AUTO DIFF [HEME] DAILY 04/12/17 05:00 BMP [BASIC METABOLIC PANEL,BMP] [CHEM] DAILY MAGNESIUM [CHEM] DAILY 04/12/17 13:16 CBC WITH AUTO DIFF [HEME] DAILY 04/14/17 07:00 CBC W/O DIFF,HEMOGRAM [HEME] MOTH@69904/17/17 07:00 CBC W/O DIFF,HEMOGRAM [HEME] MOTH@69904/21/17 07:00 CBC W/O DIFF,HEMOGRAM [HEME] MOTH@69904/24/17 07:00 CBC W/O DIFF,HEMOGRAM [HEME] MOTH@0700 04/28/17 07:00 CBC W/O DIFF,HEMOGRAM [HEME] MOTH@0700 - Plan Plan:: Impression: Acute on chronic CHF exacerbation, NYHA class III; SNF did not weigh patient as instructed; iatrogenic cause of acute CHF History of CAD/AL History of A Fib Valvular heart disease, ARIANNE need CPAP settings. Chronic HTN CKD, IV CAD/AL with PCI S/P PPM Alzheimer Disease BPH Anemia Plan: KRISS [place] on 04/11/17. Diurese, Bumex 1mg IV as tolerated Oral Fluid restrict 2D echo today Hold ACEI with diureses, resume at DC Will return to [facility] 24-48 hours; [facility] placement next week facilitated by VIVIENNE at [facility]. CHF teaching Home meds Correct electrolytes DVT/GI prophylaxis
[2017-04-10] MEDS: Finasteride 5 MG Tab PO SCH (15:01)
[2017-04-10] MEDS: Simvastatin 20 MG Tab PO SCH (15:02)
[2017-04-10] MEDS: Tamsulosin 0.4 MG Cap.ER PO SCH (18:01)
[2017-04-10] MEDS: Donepezil 10 MG Tab PO SCH (20:10)
[2017-04-10] MEDS: Pramipexole 0.25 MG Tab PO SCH (20:10)
[2017-04-11] MEDS: Acetaminophen 325 MG Tab PO SCH ×3 (07:09→21:55)
[2017-04-11] MEDS: Levothyroxine 50 MCG Tab PO SCH (07:09)
[2017-04-11] MEDS: Gabapentin 100 MG Cap PO SCH ×2 (08:05→20:37)
[2017-04-11] MEDS: Ferrous Sulfate 325 MG Tab PO SCH (08:05)
[2017-04-11] MEDS: Cholecalciferol (Vitamin D3) 1,000 Unit Tab PO SCH (08:06)
[2017-04-11] MEDS: Magnesium Oxide 400 MG Tab PO SCH (08:06)
[2017-04-11] MEDS: Clopidogrel 75 MG Tab PO SCH (08:06)
[2017-04-11] MEDS: Spironolactone 25 MG Tab PO SCH (08:06)
[2017-04-11] MEDS: Docusate Sodium 100 MG Cap PO SCH ×3 (08:06→20:38)
[2017-04-11] MEDS: Carvedilol 12.5 MG Tab PO SCH ×2 (08:06→20:39)
[2017-04-11] MEDS: Enoxaparin 40 MG/0.4 ML Syringe SUBCUT SCH (08:06)
[2017-04-11] MEDS: Sertraline 25 MG Tab PO SCH (08:07)
--- NOTE | 2017-04-11 08:44 | PCM.PN ---
<Lula Magaña - Last Filed: 04/11/17 08:44> - General Info Date of Service: 04/11/17 Admission Dx/Problem (Free Text): Mr Marino is seen this morning, resting comfortably in bed. Pleasant, mildly confused to time and place. Denies complaints of pain, SOB, CP. Is hungry this morning. Plans for likely DC back to [place] tomorrow if remains stable. Functional Status: Reports: pain controlled, tolerating diet, ambulating, urinating (hermosillo cath in place; to be dc'd this morning). Denies: new symptoms - Review of Systems General: Denies: Fever Pulmonary: Denies: shortness of breath, cough Cardiovascular: Denies: Chest Pain, Palpitations Gastrointestinal: Denies: Abdominal pain Genitourinary: Reports: no symptoms Neurological: Reports: No Symptoms, Confusion (pleasant) Psychiatric: Reports: confusion (pleasant) - Patient Data Vitals - most recent: Last Vital Signs Temp 97.3 F 04/11/17 07:40 Pulse 60 04/11/17 07:40 Resp 17 04/11/17 07:40 BP 143/74 H 04/11/17 07:40 Pulse Ox 96 04/11/17 07:40 Weight - most recent: 86.772 kg I&O - last 24 hours: Intake & Output 04/10/17 04/11/17 04/11/17 22:59 06:59 14:59 Intake Total 390 300 Output Total 445 285 Balance -55 15 Lab Results last 24 hrs: Laboratory Results - last 24 hr 04/10/17 04/10/17 04/11/17 Range/Units 06:40 23:28 06:04 WBC 5.71 (4.23-9.07) K/mm3 RBC 3.49 L (4.63-6.08) M/mm3 Hgb 10.8 L (13.7-17.5) gm/L Hct 34.0 L (40.1-51.0) % MCV 97.4 H (79.0-92.2) fl MCH 30.9 (25.7-32.2) pg MCHC 31.8 L (32.2-35.5) g/dl RDW Std Deviation 60.7 H (35.1-43.9) fL Plt Count 185 (163-337) K/mm3 MPV 9.1 L (9.4-12.3) fl Neut % (Auto) 77.7 H (34.0-67.9) % Lymph % (Auto) 13.0 L (21.8-53.1) % Ogle % (Auto) 7.0 (5.3-12.2) % Eos % (Auto) 1.8 (0.8-7.0) Baso % (Auto) 0.0 L (0.1-1.2) % Neut # (Auto) 4.44 (1.78-5.38) K/mm3 Lymph # (Auto) 0.74 L (1.32-3.57) K/mm3 Ogle # (Auto) 0.40 (0.30-0.82) K/mm3 Eos # (Auto) 0.10 (0.04-0.54) K/mm3 Baso # (Auto) 0.00 L (0.01-0.08) K/mm3 Sodium 142 (136-145) mEq/L Potassium 4.2 (3.5-5.1) mEq/L Chloride 105 (98-107) mEq/L Carbon Dioxide 31 (21-32) mEq/L Anion Gap 10.2 (5-15) BUN 36 H (7-18) mg/dL Creatinine 1.4 H (0.7-1.3) mg/dL Est Cr Clr Drug Dosing 39.26 mL/min Estimated GFR (MDRD) 48 (>60) mL/min BUN/Creatinine Ratio 25.7 H (14-18) Glucose 101 (83-115) mg/dL POC Glucose 103 (83-110) mg/dL Calcium 8.7 (8.5-10.1) mg/dL Magnesium 2.2 (1.8-2.4) mg/dl 04/11/17 04/11/17 Range/Units 06:04 07:11 WBC 4.99 (4.23-9.07) K/mm3 RBC 3.54 L (4.63-6.08) M/mm3 Hgb 10.9 L (13.7-17.5) gm/L Hct 34.7 L (40.1-51.0) % MCV 98.0 H (79.0-92.2) fl MCH 30.8 (25.7-32.2) pg MCHC 31.4 L (32.2-35.5) g/dl RDW Std Deviation 60.7 H (35.1-43.9) fL Plt Count 210 (163-337) K/mm3 MPV 8.8 L (9.4-12.3) fl Neut % (Auto) 74.4 H (34.0-67.9) % Lymph % (Auto) 17.0 L (21.8-53.1) % Ogle % (Auto) 6.6 (5.3-12.2) % Eos % (Auto) 1.6 (0.8-7.0) Baso % (Auto) 0.2 (0.1-1.2) % Neut # (Auto) 3.71 (1.78-5.38) K/mm3 Lymph # (Auto) 0.85 L (1.32-3.57) K/mm3 Ogle # (Auto) 0.33 (0.30-0.82) K/mm3 Eos # (Auto) 0.08 (0.04-0.54) K/mm3 Baso # (Auto) 0.01 (0.01-0.08) K/mm3 Sodium (136-145) mEq/L Potassium (3.5-5.1) mEq/L Chloride (98-107) mEq/L Carbon Dioxide (21-32) mEq/L Anion Gap (5-15) BUN (7-18) mg/dL Creatinine (0.7-1.3) mg/dL Est Cr Clr Drug Dosing mL/min Estimated GFR (MDRD) (>60) mL/min BUN/Creatinine Ratio (14-18) Glucose (83-115) mg/dL POC Glucose 103 (83-110) mg/dL Calcium (8.5-10.1) mg/dL Magnesium (1.8-2.4) mg/dl Med Orders - Current: Current Medications Acetaminophen (Tylenol) 650 mg PO Q8H [facility] Last Admin: 04/11/17 07:09 Dose: 650 mg Allopurinol (Zyloprim) 50 mg PO MOWEFR [facility] Last Admin: 04/09/17 13:12 Dose: 50 mg Carvedilol (Coreg) 12.5 mg PO BID [facility] Last Admin: 04/11/17 08:06 Dose: 12.5 mg Cholecalciferol (Vitamin D3) 2,000 units PO DAILY [facility] Last Admin: 04/11/17 08:06 Dose: 2,000 units Clopidogrel Bisulfate (Plavix) 75 mg PO DAILY [facility] Last Admin: 04/11/17 08:06 Dose: 75 mg Docusate Sodium (Colace) 100 mg PO BID [facility] Last Admin: 04/11/17 08:10 Dose: Not Given Donepezil HCl (Aricept) 10 mg PO BEDTIME [facility] Last Admin: 04/10/17 20:10 Dose: 10 mg Enoxaparin Sodium (Lovenox) 40 mg SUBCUT DAILY [facility] Last Admin: 04/11/17 08:06 Dose: 40 mg Ferrous Sulfate (Ferrous Sulfate) 325 mg PO DAILY [facility] Last Admin: 04/11/17 08:05 Dose: 325 mg Finasteride (Proscar) 5 mg PO ACDINNER [facility] Last Admin: 04/10/17 15:01 Dose: 5 mg Gabapentin (Neurontin) 200 mg PO BID [facility] Last Admin: 04/11/17 08:05 Dose: 200 mg Guaifenesin/Phenylephrine HCl (Robitussin Dm) 5 ml PO TID PRN PRN Reason: Cough Levothyroxine Sodium (Synthroid) 50 mcg PO ACBRK [facility] Last Admin: 04/11/17 07:09 Dose: 50 mcg Magnesium Oxide (Magnesium Oxide) 400 mg PO DAILY [facility] Last Admin: 04/11/17 08:06 Dose: 400 mg Nitroglycerin (Nitrostat) 0.4 mg SL Q5M PRN PRN Reason: Chest Pain Pramipexole Dihydrochloride (Mirapex) 0.125 mg PO BEDTIME [facility] Last Admin: 04/10/17 20:10 Dose: 0.125 mg Sertraline HCl (Zoloft) 25 mg PO DAILY [facility] Last Admin: 04/11/17 08:07 Dose: 25 mg Simvastatin (Zocor) 20 mg PO ACDINNER [facility] Last Admin: 04/10/17 15:02 Dose: 20 mg Sodium Chloride (Saline Flush) 10 ml FLUSH ASDIRECTED PRN PRN Reason: Keep Vein Open Last Admin: 04/08/17 09:11 Dose: 10 ml Spironolactone (Aldactone) 25 mg PO DAILY [facility] Last Admin: 04/11/17 08:06 Dose: 25 mg Tamsulosin HCl (Flomax) 0.8 mg PO DAILY@1800 [facility] Last Admin: 04/10/17 18:01 Dose: 0.8 mg Discontinued Medications Bumetanide (Bumex) 1 mg IVPUSH ONETIME ONE Stop: 04/08/17 13:34 Last Admin: 04/08/17 14:49 Dose: 1 mg Bumetanide (Bumex) 1 mg IVPUSH ONETIME ONE Stop: 04/09/17 10:36 Last Admin: 04/09/17 11:03 Dose: 1 mg Bumetanide (Bumex) 1 mg IVPUSH ONETIME ONE Stop: 04/09/17 18:39 Last Admin: 04/09/17 18:27 Dose: 1 mg Bumetanide (Bumex) 1 mg IVPUSH ONETIME ONE Stop: 04/10/17 10:36 Last Admin: 04/10/17 10:04 Dose: 1 mg Clopidogrel Bisulfate (Plavix) 75 mg PO DAILY [facility] Ferrous Sulfate (Ferrous Sulfate) 1 mg PO DAILY [facility] Furosemide (Lasix) 60 mg IVPUSH NOW ONE Stop: 04/08/17 08:29 Last Admin: 04/08/17 09:01 Dose: 60 mg Magnesium Sulfate 2 gm/ Premix 50 mls @ 25 mls/hr IV ONETIME ONE Stop: 04/09/17 12:39 Last Admin: 04/09/17 10:55 Dose: 25 mls/hr - Exam Quality Assessment: DVT prophylaxis General: alert, cooperative, no acute distress HEENT: Pupils equal, Pupils reactive, EOMI, Mucous membr. moist/pink Neck: supple Lungs: Clear to auscultation, Normal respiratory effort, Decreased breath sounds (mid to lower lobes). No: Rales, Rhonchi, Wheezing Cardiovascular: Regular Rate, Regular Rhythm, Murmurs (grade 2 systolic) Abdomen: bowel sounds present, soft, no tenderness, no distension (Male) Exam: Deferred Extremities: edema (trace to rt, 1+ to lt LE; teds on bilat) Peripheral Pulses: 1+: Dorsalis Pedis (L), Dorsalis Pedis (R) Skin: warm, dry Neurological: no new focal deficit Psy/Mental Status: alert, normal affect, normal mood - Problem List & Annotations (1) Acute exacerbation of CHF (congestive heart failure) SNOMED Code(s): 32160477 Code(s): I50.9 - HEART FAILURE, UNSPECIFIED Status: Acute Priority: High Current Visit: Yes Qualifiers: Congestive heart failure type: diastolic Qualified Code(s): I50.33 - Acute on chronic diastolic (congestive) heart failure (2) CKD (chronic kidney disease) SNOMED Code(s): 296961803 Code(s): N18.9 - CHRONIC KIDNEY DISEASE, UNSPECIFIED Status: Chronic Priority: High Current Visit: Yes (3) A-fib SNOMED Code(s): 31447377 Code(s): I48.91 - UNSPECIFIED ATRIAL FIBRILLATION Status: Chronic Priority: High Current Visit: Yes Qualifiers: Atrial fibrillation type: chronic Qualified Code(s): I48.2 - Chronic atrial fibrillation (4) Alzheimers disease SNOMED Code(s): 91786715 Code(s): G30.9 - ALZHEIMER'S DISEASE, UNSPECIFIED Status: Chronic Priority: Medium Current Visit: Yes Qualifiers: Dementia behavioral disturbance: without behavioral disturbance - Problem List Review Problem List Initiated/Reviewed/Updated: Yes - My Orders Last 24 Hours: My Active Orders 04/11/17 06:47 Remove [place] Catheter [Urinary Catheter Removal] [RC] Per Unit Routine - Plan Plan:: Impression: Acute on chronic CHF exacerbation, NYHA class III - SNF did not weigh patient as instructed; iatrogenic cause of acute CHF - Improving and wt continues to decrease History of CAD/VT History of A Fib Valvular heart disease, --Echo done yesterday (04/10/17) with EF of 40-45% with akenesis of left septal wall, moderate AV sclerosis, mildly dilated bilateral atria, rt lili systolic pressure moderately elevated at 50.3. ARIANNE --need CPAP settings. Chronic HTN- stable CKD, IV- stable CAD/VT with PCI S/P PPM Alzheimer Disease- pleasantly confused BPH Anemia- stable Plan: KRISS hermosillo today. Diurese, Bumex 1mg IV as tolerated Oral Fluid restrict 2D echo completed, results as above Hold ACEI with diureses, resume at DC GI/DVT prophylax PT/OT- doing well with ambulation with assist. Will return to [facility] 24-48 hours; [facility] placement next week facilitated by VIVIENNE at [facility] [place]. LOS >96 hours due to slower than expected course of improvement, diuresis, electrolyte monitoring. Patient is DNR/DNI CHF teaching Home meds Correct electrolytes DVT/GI prophylaxis <Lakeisha Espinal Daina - Last Filed: 04/11/17 09:36> - Patient Data Vitals - most recent: Last Vital Signs Temp 36.3 C 04/11/17 07:40 Pulse 60 04/11/17 07:40 Resp 17 04/11/17 07:40 BP 143/74 H 04/11/17 07:40 Pulse Ox 91 L 04/11/17 09:18 I&O - last 24 hours: Intake & Output 04/10/17 04/11/17 04/11/17 22:59 06:59 14:59 Intake Total 390 300 Output Total 445 285 175 Balance -55 15 -175 Lab Results last 24 hrs: Laboratory Results - last 24 hr 04/10/17 04/10/17 04/11/17 Range/Units 06:40 23:28 06:04 WBC 5.71 (4.23-9.07) K/mm3 RBC 3.49 L (4.63-6.08) M/mm3 Hgb 10.8 L (13.7-17.5) gm/L Hct 34.0 L (40.1-51.0) % MCV 97.4 H (79.0-92.2) fl MCH 30.9 (25.7-32.2) pg MCHC 31.8 L (32.2-35.5) g/dl RDW Std Deviation 60.7 H (35.1-43.9) fL Plt Count 185 (163-337) K/mm3 MPV 9.1 L (9.4-12.3) fl Neut % (Auto) 77.7 H (34.0-67.9) % Lymph % (Auto) 13.0 L (21.8-53.1) % Ogle % (Auto) 7.0 (5.3-12.2) % Eos % (Auto) 1.8 (0.8-7.0) Baso % (Auto) 0.0 L (0.1-1.2) % Neut # (Auto) 4.44 (1.78-5.38) K/mm3 Lymph # (Auto) 0.74 L (1.32-3.57) K/mm3 Ogle # (Auto) 0.40 (0.30-0.82) K/mm3 Eos # (Auto) 0.10 (0.04-0.54) K/mm3 Baso # (Auto) 0.00 L (0.01-0.08) K/mm3 Sodium 142 (136-145) mEq/L Potassium 4.2 (3.5-5.1) mEq/L Chloride 105 (98-107) mEq/L Carbon Dioxide 31 (21-32) mEq/L Anion Gap 10.2 (5-15) BUN 36 H (7-18) mg/dL Creatinine 1.4 H (0.7-1.3) mg/dL Est Cr Clr Drug Dosing 39.26 mL/min Estimated GFR (MDRD) 48 (>60) mL/min BUN/Creatinine Ratio 25.7 H (14-18) Glucose 101 (83-115) mg/dL POC Glucose 103 (83-110) mg/dL Calcium 8.7 (8.5-10.1) mg/dL Magnesium 2.2 (1.8-2.4) mg/dl 04/11/17 04/11/17 Range/Units 06:04 07:11 WBC 4.99 (4.23-9.07) K/mm3 RBC 3.54 L (4.63-6.08) M/mm3 Hgb 10.9 L (13.7-17.5) gm/L Hct 34.7 L (40.1-51.0) % MCV 98.0 H (79.0-92.2) fl MCH 30.8 (25.7-32.2) pg MCHC 31.4 L (32.2-35.5) g/dl RDW Std Deviation 60.7 H (35.1-43.9) fL Plt Count 210 (163-337) K/mm3 MPV 8.8 L (9.4-12.3) fl Neut % (Auto) 74.4 H (34.0-67.9) % Lymph % (Auto) 17.0 L (21.8-53.1) % Ogle % (Auto) 6.6 (5.3-12.2) % Eos % (Auto) 1.6 (0.8-7.0) Baso % (Auto) 0.2 (0.1-1.2) % Neut # (Auto) 3.71 (1.78-5.38) K/mm3 Lymph # (Auto) 0.85 L (1.32-3.57) K/mm3 Ogle # (Auto) 0.33 (0.30-0.82) K/mm3 Eos # (Auto) 0.08 (0.04-0.54) K/mm3 Baso # (Auto) 0.01 (0.01-0.08) K/mm3 Sodium (136-145) mEq/L Potassium (3.5-5.1) mEq/L Chloride (98-107) mEq/L Carbon Dioxide (21-32) mEq/L Anion Gap (5-15) BUN (7-18) mg/dL Creatinine (0.7-1.3) mg/dL Est Cr Clr Drug Dosing mL/min Estimated GFR (MDRD) (>60) mL/min BUN/Creatinine Ratio (14-18) Glucose (83-115) mg/dL POC Glucose 103 (83-110) mg/dL Calcium (8.5-10.1) mg/dL Magnesium (1.8-2.4) mg/dl Med Orders - Current: Current Medications Acetaminophen (Tylenol) 650 mg PO Q8H [facility] Last Admin: 04/11/17 07:09 Dose: 650 mg Allopurinol (Zyloprim) 50 mg PO MOWEFR [facility] Last Admin: 04/09/17 13:12 Dose: 50 mg Carvedilol (Coreg) 12.5 mg PO BID [facility] Last Admin: 04/11/17 08:06 Dose: 12.5 mg Cholecalciferol (Vitamin D3) 2,000 units PO DAILY [facility] Last Admin: 04/11/17 08:06 Dose: 2,000 units Clopidogrel Bisulfate (Plavix) 75 mg PO DAILY [facility] Last Admin: 04/11/17 08:06 Dose: 75 mg Docusate Sodium (Colace) 100 mg PO BID [facility] Last Admin: 04/11/17 08:10 Dose: Not Given Donepezil HCl (Aricept) 10 mg PO BEDTIME [facility] Last Admin: 04/10/17 20:10 Dose: 10 mg Enoxaparin Sodium (Lovenox) 40 mg SUBCUT DAILY [facility] Last Admin: 04/11/17 08:06 Dose: 40 mg Ferrous Sulfate (Ferrous Sulfate) 325 mg PO DAILY [facility] Last Admin: 04/11/17 08:05 Dose: 325 mg Finasteride (Proscar) 5 mg PO ACDINNER [facility] Last Admin: 04/10/17 15:01 Dose: 5 mg Gabapentin (Neurontin) 200 mg PO BID [facility] Last Admin: 04/11/17 08:05 Dose: 200 mg Guaifenesin/Phenylephrine HCl (Robitussin Dm) 5 ml PO TID PRN PRN Reason: Cough Levothyroxine Sodium (Synthroid) 50 mcg PO ACBRK [facility] Last Admin: 04/11/17 07:09 Dose: 50 mcg Magnesium Oxide (Magnesium Oxide) 400 mg PO DAILY [facility] Last Admin: 04/11/17 08:06 Dose: 400 mg Nitroglycerin (Nitrostat) 0.4 mg SL Q5M PRN PRN Reason: Chest Pain Pramipexole Dihydrochloride (Mirapex) 0.125 mg PO BEDTIME [facility] Last Admin: 04/10/17 20:10 Dose: 0.125 mg Sertraline HCl (Zoloft) 25 mg PO DAILY [facility] Last Admin: 04/11/17 08:07 Dose: 25 mg Simvastatin (Zocor) 20 mg PO ACDINNER [facility] Last Admin: 04/10/17 15:02 Dose: 20 mg Sodium Chloride (Saline Flush) 10 ml FLUSH ASDIRECTED PRN PRN Reason: Keep Vein Open Last Admin: 04/08/17 09:11 Dose: 10 ml Spironolactone (Aldactone) 25 mg PO DAILY [facility] Last Admin: 04/11/17 08:06 Dose: 25 mg Tamsulosin HCl (Flomax) 0.8 mg PO DAILY@1800 [facility] Last Admin: 04/10/17 18:01 Dose: 0.8 mg Discontinued Medications Bumetanide (Bumex) 1 mg IVPUSH ONETIME ONE Stop: 04/08/17 13:34 Last Admin: 04/08/17 14:49 Dose: 1 mg Bumetanide (Bumex) 1 mg IVPUSH ONETIME ONE Stop: 04/09/17 10:36 Last Admin: 04/09/17 11:03 Dose: 1 mg Bumetanide (Bumex) 1 mg IVPUSH ONETIME ONE Stop: 04/09/17 18:39 Last Admin: 04/09/17 18:27 Dose: 1 mg Bumetanide (Bumex) 1 mg IVPUSH ONETIME ONE Stop: 04/10/17 10:36 Last Admin: 04/10/17 10:04 Dose: 1 mg Clopidogrel Bisulfate (Plavix) 75 mg PO DAILY [facility] Ferrous Sulfate (Ferrous Sulfate) 1 mg PO DAILY [facility] Furosemide (Lasix) 60 mg IVPUSH NOW ONE Stop: 04/08/17 08:29 Last Admin: 04/08/17 09:01 Dose: 60 mg Magnesium Sulfate 2 gm/ Premix 50 mls @ 25 mls/hr IV ONETIME ONE Stop: 04/09/17 12:39 Last Admin: 04/09/17 10:55 Dose: 25 mls/hr - Problem List & Annotations (1) Aortic stenosis SNOMED Code(s): 50019629 Code(s): I35.0 - NONRHEUMATIC AORTIC (VALVE) STENOSIS Status: Acute Current Visit: Yes (2) Acute exacerbation of CHF (congestive heart failure) SNOMED Code(s): 45419100 Code(s): I50.9 - HEART FAILURE, UNSPECIFIED Status: Acute Priority: High Current Visit: Yes Qualifiers: Congestive heart failure type: diastolic Qualified Code(s): I50.33 - Acute on chronic diastolic (congestive) heart failure (3) Hypoxia SNOMED Code(s): 533226197, 946438063 Code(s): R09.02 - HYPOXEMIA Status: Acute Current Visit: Yes (4) Mild renal insufficiency SNOMED Code(s): 637747067 Code(s): N28.9 - DISORDER OF KIDNEY AND URETER, UNSPECIFIED Status: Acute Current Visit: Yes (5) Chronic renal insufficiency, stage IV (severe) SNOMED Code(s): 77932750 Code(s): N18.4 - CHRONIC KIDNEY DISEASE, STAGE 4 (SEVERE) Status: Acute Current Visit: No (6) COPD (chronic obstructive pulmonary disease) SNOMED Code(s): 76379582 Code(s): J44.9 - CHRONIC OBSTRUCTIVE PULMONARY DISEASE, UNSPECIFIED Status : Acute Current Visit: Yes (7) GERD (gastroesophageal reflux disease) SNOMED Code(s): 147474736 Code(s): K21.9 - GASTRO-ESOPHAGEAL REFLUX DISEASE WITHOUT ESOPHAGITIS Status: Acute Current Visit: Yes (8) A-fib SNOMED Code(s): 51018339 Code(s): I48.91 - UNSPECIFIED ATRIAL FIBRILLATION Status: Chronic Priority: High Current Visit: Yes Qualifiers: Atrial fibrillation type: chronic Qualified Code(s): I48.2 - Chronic atrial fibrillation (9) Diabetes mellitus SNOMED Code(s): 42221662 Code(s): E11.9 - TYPE 2 DIABETES MELLITUS WITHOUT COMPLICATIONS Status: Acute Current Visit: Yes (10) Hyperlipidemia associated with type 2 diabetes mellitus SNOMED Code(s): 367393684617, 203855232828 Code(s): E11.69 - TYPE 2 DIABETES MELLITUS WITH OTHER SPECIFIED COMPLICATION ; E78.5 - HYPERLIPIDEMIA, UNSPECIFIED Status: Acute Current Visit: Yes (11) Alzheimers disease SNOMED Code(s): 92435937 Code(s): G30.9 - ALZHEIMER'S DISEASE, UNSPECIFIED Status: Chronic Priority: Medium Current Visit: Yes Qualifiers: Dementia behavioral disturbance: without behavioral disturbance (12) CAD (coronary artery disease) SNOMED Code(s): 58720879 Code(s): I25.10 - ATHSCL HEART DISEASE OF [place] CORONARY ARTERY W/O ANG PCTRS Status: Acute Current Visit: Yes - My Orders Last 24 Hours: My Active Orders 04/10/17 11:44 Admission Status [Patient Status] [ADT] Routine 04/12/17 05:00 BMP [BASIC METABOLIC PANEL,BMP] [CHEM] DAILY MAGNESIUM [CHEM] DAILY 04/12/17 13:16 CBC WITH AUTO DIFF [HEME] DAILY 04/14/17 07:00 CBC W/O DIFF,HEMOGRAM [HEME] MOTH@0700 04/17/17 07:00 CBC W/O DIFF,HEMOGRAM [HEME] MOTH@0700 04/21/17 07:00 CBC W/O DIFF,HEMOGRAM [HEME] MOTH@0700 04/24/17 07:00 CBC W/O DIFF,HEMOGRAM [HEME] MOTH@0700 04/28/17 07:00 CBC W/O DIFF,HEMOGRAM [HEME] MOTH@0700 - Plan Plan:: DC jaimee, prepare for DC 24-48 hours, follow labs; cont diureses.
[2017-04-11] MEDS ORDERED: Bumetanide 1 MG/4 ML MDV IVPUSH ONE (12:45)
[2017-04-11] MEDS: Terazosin 1 MG Cap PO SCH ×4 (13:12→17:29)
[2017-04-11] MEDS: Allopurinol 100 MG Tab PO SCH (13:26)
[2017-04-11] MEDS: Simvastatin 20 MG Tab PO SCH (16:44)
[2017-04-11] MEDS: Finasteride 5 MG Tab PO SCH (16:45)
[2017-04-11] MEDS: Tamsulosin 0.4 MG Cap.ER PO SCH ×2 (16:45→17:29)
[2017-04-11] MEDS: Donepezil 10 MG Tab PO SCH (20:37)
[2017-04-11] MEDS: Pramipexole 0.25 MG Tab PO SCH (20:38)
[2017-04-12] MEDS: Acetaminophen 325 MG Tab PO SCH ×3 (05:11→21:32)
[2017-04-12] MEDS: Levothyroxine 50 MCG Tab PO SCH (05:12)
[2017-04-12] MEDS: Enoxaparin 40 MG/0.4 ML Syringe SUBCUT SCH (08:03)
[2017-04-12] MEDS: Magnesium Oxide 400 MG Tab PO SCH (08:03)
[2017-04-12] MEDS: Gabapentin 100 MG Cap PO SCH ×2 (08:03→20:22)
[2017-04-12] MEDS: Ferrous Sulfate 325 MG Tab PO SCH (08:03)
[2017-04-12] MEDS: Spironolactone 25 MG Tab PO SCH (08:03)
[2017-04-12] MEDS: Clopidogrel 75 MG Tab PO SCH (08:03)
[2017-04-12] MEDS: Cholecalciferol (Vitamin D3) 1,000 Unit Tab PO SCH (08:03)
[2017-04-12] MEDS: Sertraline 25 MG Tab PO SCH (08:03)
[2017-04-12] MEDS: Terazosin 1 MG Cap PO SCH ×2 (08:04→20:26)
[2017-04-12] MEDS: Carvedilol 12.5 MG Tab PO SCH ×2 (08:04→20:22)
[2017-04-12] MEDS: Docusate Sodium 100 MG Cap PO SCH ×2 (08:07→20:25)
[2017-04-12] MEDS ORDERED: Bumetanide 1 MG/4 ML MDV IVPUSH ONE ×2 (09:00→15:00)
--- NOTE | 2017-04-12 10:16 | PCM.PN ---
- General Info Date of Service: 04/12/17 Functional Status: Reports: pain controlled, tolerating diet, ambulating, urinating - Review of Systems General: Reports: Weakness, Fatigue HEENT: Reports: no symptoms Pulmonary: Reports: shortness of breath Cardiovascular: Reports: No Symptoms Gastrointestinal: Reports: No symptoms Genitourinary: Reports: no symptoms Musculoskeletal: Reports: no symptoms Skin: Reports: no symptoms Neurological: Reports: No Symptoms Psychiatric: Reports: no symptoms - Patient Data Vitals - most recent: Last Vital Signs Temp 36.3 C 04/12/17 07:30 Pulse 60 04/12/17 07:30 Resp 16 04/12/17 07:30 BP 134/73 04/12/17 07:30 Pulse Ox 87 L 04/12/17 08:39 Weight - most recent: 85.82 kg I&O - last 24 hours: Intake & Output 04/11/17 04/12/17 04/12/17 22:59 06:59 14:59 Intake Total 330 60 Balance 330 60 Lab Results last 24 hrs: Laboratory Results - last 24 hr 04/10/17 04/10/17 04/11/17 Range/Units 11:58 18:32 11:43 WBC (4.23-9.07) K/mm3 RBC (4.63-6.08) M/mm3 Hgb (13.7-17.5) gm/L Hct (40.1-51.0) % MCV (79.0-92.2) fl MCH (25.7-32.2) pg MCHC (32.2-35.5) g/dl RDW Std Deviation (35.1-43.9) fL Plt Count (163-337) K/mm3 MPV (9.4-12.3) fl Neut % (Auto) (34.0-67.9) % Lymph % (Auto) (21.8-53.1) % [place] % (Auto) (5.3-12.2) % Eos % (Auto) (0.8-7.0) Baso % (Auto) (0.1-1.2) % Neut # (Auto) (1.78-5.38) K/mm3 Lymph # (Auto) (1.32-3.57) K/mm3 [place] # (Auto) (0.30-0.82) K/mm3 Eos # (Auto) (0.04-0.54) K/mm3 Baso # (Auto) (0.01-0.08) K/mm3 Sodium (136-145) mEq/L Potassium (3.5-5.1) mEq/L Chloride (98-107) mEq/L Carbon Dioxide (21-32) mEq/L Anion Gap (5-15) BUN (7-18) mg/dL Creatinine (0.7-1.3) mg/dL Est Cr Clr Drug Dosing mL/min Estimated GFR (MDRD) (>60) mL/min BUN/Creatinine Ratio (14-18) Glucose (83-115) mg/dL POC Glucose 107 134 H 89 (83-110) mg/dL Calcium (8.5-10.1) mg/dL Magnesium (1.8-2.4) mg/dl 04/11/17 04/11/17 04/12/17 Range/Units 17:27 21:36 04:48 WBC (4.23-9.07) K/mm3 RBC (4.63-6.08) M/mm3 Hgb (13.7-17.5) gm/L Hct (40.1-51.0) % MCV (79.0-92.2) fl MCH (25.7-32.2) pg MCHC (32.2-35.5) g/dl RDW Std Deviation (35.1-43.9) fL Plt Count (163-337) K/mm3 MPV (9.4-12.3) fl Neut % (Auto) (34.0-67.9) % Lymph % (Auto) (21.8-53.1) % [place] % (Auto) (5.3-12.2) % Eos % (Auto) (0.8-7.0) Baso % (Auto) (0.1-1.2) % Neut # (Auto) (1.78-5.38) K/mm3 Lymph # (Auto) (1.32-3.57) K/mm3 [place] # (Auto) (0.30-0.82) K/mm3 Eos # (Auto) (0.04-0.54) K/mm3 Baso # (Auto) (0.01-0.08) K/mm3 Sodium 142 (136-145) mEq/L Potassium 4.4 (3.5-5.1) mEq/L Chloride 106 (98-107) mEq/L Carbon Dioxide 32 (21-32) mEq/L Anion Gap 8.4 (5-15) BUN 38 H (7-18) mg/dL Creatinine 1.4 H (0.7-1.3) mg/dL Est Cr Clr Drug Dosing 39.26 mL/min Estimated GFR (MDRD) 48 (>60) mL/min BUN/Creatinine Ratio 27.1 H (14-18) Glucose 100 (83-115) mg/dL POC Glucose 89 120 H (83-110) mg/dL Calcium 8.7 (8.5-10.1) mg/dL Magnesium 2.2 (1.8-2.4) mg/dl 04/12/17 04/12/17 Range/Units 04:48 06:27 WBC 5.09 (4.23-9.07) K/mm3 RBC 3.47 L (4.63-6.08) M/mm3 Hgb 10.7 L (13.7-17.5) gm/L Hct 33.9 L (40.1-51.0) % MCV 97.7 H (79.0-92.2) fl MCH 30.8 (25.7-32.2) pg MCHC 31.6 L (32.2-35.5) g/dl RDW Std Deviation 60.5 H (35.1-43.9) fL Plt Count 203 (163-337) K/mm3 MPV 8.5 L (9.4-12.3) fl Neut % (Auto) 69.9 H (34.0-67.9) % Lymph % (Auto) 18.5 L (21.8-53.1) % [place] % (Auto) 8.8 (5.3-12.2) % Eos % (Auto) 2.0 (0.8-7.0) Baso % (Auto) 0.4 (0.1-1.2) % Neut # (Auto) 3.56 (1.78-5.38) K/mm3 Lymph # (Auto) 0.94 L (1.32-3.57) K/mm3 [place] # (Auto) 0.45 (0.30-0.82) K/mm3 Eos # (Auto) 0.10 (0.04-0.54) K/mm3 Baso # (Auto) 0.02 (0.01-0.08) K/mm3 Sodium (136-145) mEq/L Potassium (3.5-5.1) mEq/L Chloride (98-107) mEq/L Carbon Dioxide (21-32) mEq/L Anion Gap (5-15) BUN (7-18) mg/dL Creatinine (0.7-1.3) mg/dL Est Cr Clr Drug Dosing mL/min Estimated GFR (MDRD) (>60) mL/min BUN/Creatinine Ratio (14-18) Glucose (83-115) mg/dL POC Glucose 90 (83-110) mg/dL Calcium (8.5-10.1) mg/dL Magnesium (1.8-2.4) mg/dl Med Orders - Current: Current Medications Acetaminophen (Tylenol) 650 mg PO Q8H [facility] Last Admin: 04/12/17 05:11 Dose: 650 mg Allopurinol (Zyloprim) 50 mg PO MOWEFR [facility] Last Admin: 04/11/17 13:26 Dose: 50 mg Bumetanide (Bumex) 1 mg IVPUSH ONETIME ONE Stop: 04/12/17 15:01 Carvedilol (Coreg) 12.5 mg PO BID [facility] Last Admin: 04/12/17 08:04 Dose: 12.5 mg Cholecalciferol (Vitamin D3) 2,000 units PO DAILY [facility] Last Admin: 04/12/17 08:03 Dose: 2,000 units Clopidogrel Bisulfate (Plavix) 75 mg PO DAILY [facility] Last Admin: 04/12/17 08:03 Dose: 75 mg Docusate Sodium (Colace) 100 mg PO BID [facility] Last Admin: 04/12/17 08:07 Dose: Not Given Donepezil HCl (Aricept) 10 mg PO BEDTIME [facility] Last Admin: 04/11/17 20:37 Dose: 10 mg Enoxaparin Sodium (Lovenox) 40 mg SUBCUT DAILY [facility] Last Admin: 04/12/17 08:03 Dose: 40 mg Ferrous Sulfate (Ferrous Sulfate) 325 mg PO DAILY [facility] Last Admin: 04/12/17 08:03 Dose: 325 mg Finasteride (Proscar) 5 mg PO ACDINNER [facility] Last Admin: 04/11/17 16:45 Dose: 5 mg Gabapentin (Neurontin) 200 mg PO BID [facility] Last Admin: 04/12/17 08:03 Dose: 200 mg Guaifenesin/Phenylephrine HCl (Robitussin Dm) 5 ml PO TID PRN PRN Reason: Cough Levothyroxine Sodium (Synthroid) 50 mcg PO ACBRK [facility] Last Admin: 04/12/17 05:12 Dose: 50 mcg Magnesium Oxide (Magnesium Oxide) 400 mg PO DAILY [facility] Last Admin: 04/12/17 08:03 Dose: 400 mg Nitroglycerin (Nitrostat) 0.4 mg SL Q5M PRN PRN Reason: Chest Pain Pramipexole Dihydrochloride (Mirapex) 0.125 mg PO BEDTIME [facility] Last Admin: 04/11/17 20:38 Dose: 0.125 mg Sertraline HCl (Zoloft) 25 mg PO DAILY [facility] Last Admin: 04/12/17 08:03 Dose: 25 mg [facility] Last Admin: 04/11/17 16:44 Dose: 20 mg Sodium Chloride (Saline Flush) 10 ml FLUSH ASDIRECTED PRN PRN Reason: Keep Vein Open Last Admin: 04/08/17 09:11 Dose: 10 ml Spironolactone (Aldactone) 25 mg PO DAILY [facility] Last Admin: 04/12/17 08:03 Dose: 25 mg Tamsulosin HCl (Flomax) 0.8 mg PO DAILY@1800 [facility] Last Admin: 04/11/17 17:29 Dose: Not Given Terazosin HCl (Hytrin) 1 mg PO BID [facility] Last Admin: 04/12/17 08:04 Dose: 1 mg Discontinued Medications Bumetanide (Bumex) 1 mg IVPUSH ONETIME ONE Stop: 04/08/17 13:34 Last Admin: 04/08/17 14:49 Dose: 1 mg Bumetanide (Bumex) 1 mg IVPUSH ONETIME ONE Stop: 04/09/17 10:36 Last Admin: 04/09/17 11:03 Dose: 1 mg Bumetanide (Bumex) 1 mg IVPUSH ONETIME ONE Stop: 04/09/17 18:39 Last Admin: 04/09/17 18:27 Dose: 1 mg Bumetanide (Bumex) 1 mg IVPUSH ONETIME ONE Stop: 04/10/17 10:36 Last Admin: 04/10/17 10:04 Dose: 1 mg Bumetanide (Bumex) 1 mg IVPUSH ONETIME ONE Stop: 04/11/17 12:46 Last Admin: 04/11/17 13:11 Dose: 1 mg Bumetanide (Bumex) 1 mg IVPUSH ONETIME ONE Stop: 04/12/17 09:01 Last Admin: 04/12/17 08:03 Dose: 1 mg Clopidogrel Bisulfate (Plavix) 75 mg PO DAILY [facility] Ferrous Sulfate (Ferrous Sulfate) 1 mg PO DAILY [facility] Furosemide (Lasix) 60 mg IVPUSH NOW ONE Stop: 04/08/17 08:29 Last Admin: 04/08/17 09:01 Dose: 60 mg Magnesium Sulfate 2 gm/ Premix 50 mls @ 25 mls/hr IV ONETIME ONE Stop: 04/09/17 12:39 Last Admin: 04/09/17 10:55 Dose: 25 mls/hr Terazosin HCl (Hytrin) 1 mg PO BID [facility] Last Admin: 04/11/17 13:21 Dose: Not Given - Exam Quality Assessment: supplemental oxygen, DVT prophylaxis General: alert, oriented, cooperative, no acute distress HEENT: Pupils equal, Pupils reactive, EOMI Neck: supple, trachea midline, no JVD Lungs: Normal respiratory effort, Decreased breath sounds Cardiovascular: Regular Rate, Regular Rhythm Abdomen: bowel sounds present, soft, no tenderness, no distension (Male) Exam: Deferred Back Exam: Normal Inspection Extremities: normal pulses Skin: warm Neurological: no new focal deficit Psy/Mental Status: alert, normal affect, normal mood - Problem List & Annotations (1) Aortic stenosis SNOMED Code(s): 10362522 Code(s): I35.0 - NONRHEUMATIC AORTIC (VALVE) STENOSIS Status: Acute Current Visit: Yes (2) Acute exacerbation of CHF (congestive heart failure) SNOMED Code(s): 26769852 Code(s): I50.9 - HEART FAILURE, UNSPECIFIED Status: Acute Priority: High Current Visit: Yes Qualifiers: Congestive heart failure type: diastolic Qualified Code(s): I50.33 - Acute on chronic diastolic (congestive) heart failure (3) Hypoxia SNOMED Code(s): 694526929, 357482740 Code(s): R09.02 - HYPOXEMIA Status: Acute Current Visit: Yes (4) Mild renal insufficiency SNOMED Code(s): 527744917 Code(s): N28.9 - DISORDER OF KIDNEY AND URETER, UNSPECIFIED Status: Acute Current Visit: Yes (5) Chronic renal insufficiency, stage IV (severe) SNOMED Code(s): 81358884 Code(s): N18.4 - CHRONIC KIDNEY DISEASE, STAGE 4 (SEVERE) Status: Acute Current Visit: No (6) COPD (chronic obstructive pulmonary disease) SNOMED Code(s): 36445332 Code(s): J44.9 - CHRONIC OBSTRUCTIVE PULMONARY DISEASE, UNSPECIFIED Status : Acute Current Visit: Yes (7) GERD (gastroesophageal reflux disease) SNOMED Code(s): 557561498 Code(s): K21.9 - GASTRO-ESOPHAGEAL REFLUX DISEASE WITHOUT ESOPHAGITIS Status: Acute Current Visit: Yes (8) A-fib SNOMED Code(s): 60184361 Code(s): I48.91 - UNSPECIFIED ATRIAL FIBRILLATION Status: Chronic Priority: High Current Visit: Yes Qualifiers: Atrial fibrillation type: chronic Qualified Code(s): I48.2 - Chronic atrial fibrillation (9) Diabetes mellitus SNOMED Code(s): 39670894 Code(s): E11.9 - TYPE 2 DIABETES MELLITUS WITHOUT COMPLICATIONS Status: Acute Current Visit: Yes (10) Hyperlipidemia associated with type 2 diabetes mellitus SNOMED Code(s): 664019750293, 941416558697 Code(s): E11.69 - TYPE 2 DIABETES MELLITUS WITH OTHER SPECIFIED COMPLICATION ; E78.5 - HYPERLIPIDEMIA, UNSPECIFIED Status: Acute Current Visit: Yes (11) Alzheimers disease SNOMED Code(s): 94901644 Code(s): G30.9 - ALZHEIMER'S DISEASE, UNSPECIFIED Status: Chronic Priority: Medium Current Visit: Yes Qualifiers: Dementia behavioral disturbance: without behavioral disturbance (12) CAD (coronary artery disease) SNOMED Code(s): 88046845 Code(s): I25.10 - ATHSCL HEART DISEASE OF [place] CORONARY ARTERY W/O ANG PCTRS Status: Acute Current Visit: Yes - Problem List Review Problem List Initiated/Reviewed/Updated: Yes - My Orders Last 24 Hours: My Active Orders 04/11/17 18:00 Terazosin [Hytrin] 1 mg PO BID 04/12/17 10:14 Bladder Scan [RC] Q8HR 04/12/17 15:00 Bumetanide [Bumex] 1 mg IVPUSH ONETIME ONE 04/14/17 07:00 CBC W/O DIFF,HEMOGRAM [HEME] MOTH@0700 04/17/17 07:00 CBC W/O DIFF,HEMOGRAM [HEME] MOTH@69904/21/17 07:00 CBC W/O DIFF,HEMOGRAM [HEME] MOTH@69904/24/17 07:00 CBC W/O DIFF,HEMOGRAM [HEME] MOTH@00 04/28/17 07:00 CBC W/O DIFF,HEMOGRAM [HEME] MOTH@07 - Plan Plan:: Impression/Plan: Acute CHF exacerbation, baseline NYHA class III Continue duireses CAD/[place]-stable AFib-controlled ?, Aortic sclerosis by 2dEcho 04/10/17 [facility], LVEF 40-45% ARIANNE witrhout CPAP during admission CKD IV-stable Alzheimer Dementia-stable Placement-[facility] [place] on 04/15/17. LOS>96 hours with CHF treatment and placement in new facility; will not be returning to [facility]
[2017-04-12] MEDS: Simvastatin 20 MG Tab PO SCH (15:23)
[2017-04-12] MEDS: Finasteride 5 MG Tab PO SCH (15:23)
[2017-04-12] MEDS: Tamsulosin 0.4 MG Cap.ER PO SCH (17:07)
[2017-04-12] MEDS: Pramipexole 0.25 MG Tab PO SCH (20:26)
[2017-04-12] MEDS: Donepezil 10 MG Tab PO SCH (20:27)
[2017-04-13] MEDS: Acetaminophen 325 MG Tab PO SCH ×3 (05:28→21:08)
[2017-04-13] MEDS: Levothyroxine 50 MCG Tab PO SCH (05:29)
[2017-04-13] MEDS: Spironolactone 25 MG Tab PO SCH (08:07)
[2017-04-13] MEDS: Ferrous Sulfate 325 MG Tab PO SCH (08:08)
[2017-04-13] MEDS: Gabapentin 100 MG Cap PO SCH ×2 (08:08→20:42)
[2017-04-13] MEDS: Magnesium Oxide 400 MG Tab PO SCH (08:08)
[2017-04-13] MEDS: Enoxaparin 40 MG/0.4 ML Syringe SUBCUT SCH (08:08)
[2017-04-13] MEDS: Sertraline 25 MG Tab PO SCH (08:08)
[2017-04-13] MEDS: Carvedilol 12.5 MG Tab PO SCH ×2 (08:08→20:40)
[2017-04-13] MEDS: Docusate Sodium 100 MG Cap PO SCH ×2 (08:08→22:49)
[2017-04-13] MEDS: Clopidogrel 75 MG Tab PO SCH (08:08)
[2017-04-13] MEDS: Terazosin 1 MG Cap PO SCH ×2 (08:08→20:41)
[2017-04-13] MEDS: Cholecalciferol (Vitamin D3) 1,000 Unit Tab PO SCH (08:08)
--- NOTE | 2017-04-13 09:33 | PCM.PN ---
- General Info Date of Service: 04/13/17 Functional Status: Reports: pain controlled, tolerating diet, ambulating, urinating - Review of Systems General: Reports: Weakness HEENT: Reports: no symptoms Pulmonary: Reports: shortness of breath Cardiovascular: Reports: No Symptoms Gastrointestinal: Reports: No symptoms Genitourinary: Reports: no symptoms Musculoskeletal: Reports: no symptoms Skin: Reports: no symptoms Neurological: Reports: No Symptoms Psychiatric: Reports: no symptoms - Patient Data Vitals - most recent: Last Vital Signs Temp 36.7 C 04/13/17 07:23 Pulse 59 L 04/13/17 07:23 Resp 18 04/13/17 07:23 BP 117/68 04/13/17 07:23 Pulse Ox 92 L 04/13/17 07:23 Weight - most recent: 84.232 kg I&O - last 24 hours: Intake & Output 04/12/17 04/13/17 04/13/17 22:59 06:59 14:59 Intake Total 785 400 Balance 785 400 Lab Results last 24 hrs: Laboratory Results - last 24 hr 04/12/17 04/12/17 Range/Units 10:52 16:58 POC Glucose 116 H 105 (83-110) mg/dL Med Orders - Current: Current Medications Acetaminophen (Tylenol) 650 mg PO Q8H [facility] Last Admin: 04/13/17 05:28 Dose: 650 mg Allopurinol (Zyloprim) 50 mg PO MOWEFR [facility] Last Admin: 04/11/17 13:26 Dose: 50 mg Bumetanide (Bumex) 1 mg PO DAILY [facility] Carvedilol (Coreg) 12.5 mg PO BID [facility] Last Admin: 04/13/17 08:08 Dose: 12.5 mg Cholecalciferol (Vitamin D3) 2,000 units PO DAILY [facility] Last Admin: 04/13/17 08:08 Dose: 2,000 units Clopidogrel Bisulfate (Plavix) 75 mg PO DAILY [facility] Last Admin: 04/13/17 08:08 Dose: 75 mg Docusate Sodium (Colace) 100 mg PO BID [facility] Last Admin: 04/13/17 08:08 Dose: Not Given Donepezil HCl (Aricept) 10 mg PO BEDTIME [facility] Last Admin: 04/12/17 20:27 Dose: 10 mg Enoxaparin Sodium (Lovenox) 40 mg SUBCUT DAILY [facility] Last Admin: 04/13/17 08:08 Dose: 40 mg Ferrous Sulfate (Ferrous Sulfate) 325 mg PO DAILY [facility] Last Admin: 04/13/17 08:08 Dose: 325 mg Finasteride (Proscar) 5 mg PO ACDINNER [facility] Last Admin: 04/12/17 15:23 Dose: 5 mg Gabapentin (Neurontin) 200 mg PO BID [facility] Last Admin: 04/13/17 08:08 Dose: 200 mg Guaifenesin/Phenylephrine HCl (Robitussin Dm) 5 ml PO TID PRN PRN Reason: Cough Levothyroxine Sodium (Synthroid) 50 mcg PO ACBRK [facility] Last Admin: 04/13/17 05:29 Dose: 50 mcg Magnesium Oxide (Magnesium Oxide) 400 mg PO DAILY [facility] Last Admin: 04/13/17 08:08 Dose: 400 mg Nitroglycerin (Nitrostat) 0.4 mg SL Q5M PRN PRN Reason: Chest Pain Pramipexole Dihydrochloride (Mirapex) 0.125 mg PO BEDTIME [facility] Last Admin: 04/12/17 20:26 Dose: 0.125 mg Sertraline HCl (Zoloft) 25 mg PO DAILY [facility] Last Admin: 04/13/17 08:08 Dose: 25 mg Simvastatin (Zocor) 20 mg PO ACDINNER [facility] Last Admin: 04/12/17 15:23 Dose: 20 mg Sodium Chloride (Saline Flush) 10 ml FLUSH ASDIRECTED PRN PRN Reason: Keep Vein Open Last Admin: 04/08/17 09:11 Dose: 10 ml Spironolactone (Aldactone) 25 mg PO DAILY [facility] Last Admin: 04/13/17 08:07 Dose: 25 mg Tamsulosin HCl (Flomax) 0.8 mg PO DAILY@1800 [facility] Last Admin: 04/12/17 17:07 Dose: 0.8 mg Terazosin HCl (Hytrin) 1 mg PO BID [facility] Last Admin: 04/13/17 08:08 Dose: 1 mg Discontinued Medications Bumetanide (Bumex) 1 mg IVPUSH ONETIME ONE Stop: 04/08/17 13:34 Last Admin: 04/08/17 14:49 Dose: 1 mg Bumetanide (Bumex) 1 mg IVPUSH ONETIME ONE Stop: 04/09/17 10:36 Last Admin: 04/09/17 11:03 Dose: 1 mg Bumetanide (Bumex) 1 mg IVPUSH ONETIME ONE Stop: 04/09/17 18:39 Last Admin: 04/09/17 18:27 Dose: 1 mg Bumetanide (Bumex) 1 mg IVPUSH ONETIME ONE Stop: 04/10/17 10:36 Last Admin: 04/10/17 10:04 Dose: 1 mg Bumetanide (Bumex) 1 mg IVPUSH ONETIME ONE Stop: 04/11/17 12:46 Last Admin: 04/11/17 13:11 Dose: 1 mg Bumetanide (Bumex) 1 mg IVPUSH ONETIME ONE Stop: 04/12/17 09:01 Last Admin: 04/12/17 08:03 Dose: 1 mg Bumetanide (Bumex) 1 mg IVPUSH ONETIME ONE Stop: 04/12/17 15:01 Last Admin: 04/12/17 15:22 Dose: 1 mg Clopidogrel Bisulfate (Plavix) 75 mg PO DAILY [facility] Ferrous Sulfate (Ferrous Sulfate) 1 mg PO DAILY [facility] Furosemide (Lasix) 60 mg IVPUSH NOW ONE Stop: 04/08/17 08:29 Last Admin: 04/08/17 09:01 Dose: 60 mg Magnesium Sulfate 2 gm/ Premix 50 mls @ 25 mls/hr IV ONETIME ONE Stop: 04/09/17 12:39 Last Admin: 04/09/17 10:55 Dose: 25 mls/hr Terazosin HCl (Hytrin) 1 mg PO BID [facility] Last Admin: 04/11/17 13:21 Dose: Not Given - Exam Quality Assessment: supplemental oxygen, DVT prophylaxis General: alert, oriented, cooperative, no acute distress HEENT: Pupils equal, Pupils reactive, EOMI Neck: supple, trachea midline, no JVD Lungs: Normal respiratory effort, Decreased breath sounds Cardiovascular: Regular Rate Abdomen: bowel sounds present, soft, no tenderness, no distension (Male) Exam: Deferred Back Exam: Normal Inspection Extremities: normal pulses Skin: warm Neurological: no new focal deficit, normal gait, normal speech Psy/Mental Status: alert, normal affect, normal mood - Problem List & Annotations (1) Aortic stenosis SNOMED Code(s): 09017441 Code(s): I35.0 - NONRHEUMATIC AORTIC (VALVE) STENOSIS Status: Acute Current Visit: Yes (2) Acute exacerbation of CHF (congestive heart failure) SNOMED Code(s): 70424135 Code(s): I50.9 - HEART FAILURE, UNSPECIFIED Status: Acute Priority: High Current Visit: Yes Qualifiers: Congestive heart failure type: diastolic Qualified Code(s): I50.33 - Acute on chronic diastolic (congestive) heart failure (3) Hypoxia SNOMED Code(s): 019247173, 682810202 Code(s): R09.02 - HYPOXEMIA Status: Acute Current Visit: Yes (4) Mild renal insufficiency SNOMED Code(s): 176635198 Code(s): N28.9 - DISORDER OF KIDNEY AND URETER, UNSPECIFIED Status: Acute Current Visit: Yes (5) Chronic renal insufficiency, stage IV (severe) SNOMED Code(s): 13992859 Code(s): N18.4 - CHRONIC KIDNEY DISEASE, STAGE 4 (SEVERE) Status: Acute Current Visit: No (6) COPD (chronic obstructive pulmonary disease) SNOMED Code(s): 13452070 Code(s): J44.9 - CHRONIC OBSTRUCTIVE PULMONARY DISEASE, UNSPECIFIED Status : Acute Current Visit: Yes (7) GERD (gastroesophageal reflux disease) SNOMED Code(s): 744290926 Code(s): K21.9 - GASTRO-ESOPHAGEAL REFLUX DISEASE WITHOUT ESOPHAGITIS Status: Acute Current Visit: Yes (8) A-fib SNOMED Code(s): 45113892 Code(s): I48.91 - UNSPECIFIED ATRIAL FIBRILLATION Status: Chronic Priority: High Current Visit: Yes Qualifiers: Atrial fibrillation type: chronic Qualified Code(s): I48.2 - Chronic atrial fibrillation (9) Diabetes mellitus SNOMED Code(s): 15412083 Code(s): E11.9 - TYPE 2 DIABETES MELLITUS WITHOUT COMPLICATIONS Status: Acute Current Visit: Yes (10) Hyperlipidemia associated with type 2 diabetes mellitus SNOMED Code(s): 981992325900, 374307814289 Code(s): E11.69 - TYPE 2 DIABETES MELLITUS WITH OTHER SPECIFIED COMPLICATION ; E78.5 - HYPERLIPIDEMIA, UNSPECIFIED Status: Acute Current Visit: Yes (11) Alzheimers disease SNOMED Code(s): 71129163 Code(s): G30.9 - ALZHEIMER'S DISEASE, UNSPECIFIED Status: Chronic Priority: Medium Current Visit: Yes Qualifiers: Dementia behavioral disturbance: without behavioral disturbance (12) CAD (coronary artery disease) SNOMED Code(s): 56801500 Code(s): I25.10 - ATHSCL HEART DISEASE OF [place] CORONARY ARTERY W/O ANG PCTRS Status: Acute Current Visit: Yes - Problem List Review Problem List Initiated/Reviewed/Updated: Yes - My Orders Last 24 Hours: My Active Orders 04/13/17 09:45 Bumetanide [Bumex] 1 mg PO DAILY 04/14/17 07:00 CBC W/O DIFF,HEMOGRAM [HEME] MOTH@0700 04/17/17 07:00 CBC W/O DIFF,HEMOGRAM [HEME] MOTH@0700 04/21/17 07:00 CBC W/O DIFF,HEMOGRAM [HEME] MOTH@0700 04/24/17 07:00 CBC W/O DIFF,HEMOGRAM [HEME] MOTH@0700 04/28/17 07:00 CBC W/O DIFF,HEMOGRAM [HEME] MOTH@0700 - Plan Plan:: Impression/Plan: Acute CHF exacerbation, baseline NYHA class III Continue duireses, change oral bumex, continue aldactone CAD/[place]-stable AFib-controlled ?, Aortic sclerosis by 2D Echo 04/10/17 [facility], LVEF 40-45%; mild CMP ARIANNE witrhout CPAP during admission CKD IV-stable Alzheimer Dementia-stable Placement-[facility] at [place] on 04/15/17. LOS>96 hours with CHF treatment and placement in new facility; will not be returning to [facility]
[2017-04-13] MEDS: Bumetanide 1 MG Tab PO SCH (10:32)
[2017-04-13] MEDS: Simvastatin 20 MG Tab PO SCH (15:46)
[2017-04-13] MEDS: Finasteride 5 MG Tab PO SCH (15:46)
[2017-04-13] MEDS: Tamsulosin 0.4 MG Cap.ER PO SCH (17:57)
[2017-04-13] MEDS: Donepezil 10 MG Tab PO SCH (20:40)
[2017-04-13] MEDS: Pramipexole 0.25 MG Tab PO SCH (20:41)
[2017-04-14] MEDS: Acetaminophen 325 MG Tab PO SCH ×3 (05:35→21:04)
[2017-04-14] MEDS: Levothyroxine 50 MCG Tab PO SCH (05:36)
--- NOTE | 2017-04-14 07:02 | PCM.PN ---
<Lula Magaña M - Last Filed: 04/14/17 10:52> - General Info Date of Service: 04/14/17 Admission Dx/Problem (Free Text): Mr Marino is seen this morning, resting comfortably in bed. Denies complaints of pain, SOB, CP. Slept well. Up ambulating with PT, doing well. Plans for DC to [facility] tomorrow. Functional Status: Reports: pain controlled, tolerating diet, ambulating, urinating ( ) - Review of Systems General: Reports: No Symptoms HEENT: Reports: no symptoms Pulmonary: Reports: no symptoms. Denies: shortness of breath, cough Cardiovascular: Reports: No Symptoms. Denies: Chest Pain Gastrointestinal: Reports: No symptoms. Denies: Abdominal pain Genitourinary: Reports: no symptoms Neurological: Reports: No Symptoms Psychiatric: Denies: anxiety, agitation - Patient Data Vitals - most recent: Last Vital Signs Temp 98.2 F 04/13/17 20:24 Pulse 60 04/13/17 20:40 Resp 18 04/13/17 20:24 BP 114/61 04/13/17 20:41 Pulse Ox 92 L 04/13/17 20:24 Weight - most recent: 83.597 kg I&O - last 24 hours: Intake & Output 04/13/17 04/13/17 04/14/17 14:59 22:59 06:59 Intake Total 210 510 Balance 210 510 Lab Results last 24 hrs: Laboratory Results - last 24 hr 04/13/17 04/13/17 04/13/17 Range/Units 12:19 17:44 21:10 WBC (4.23-9.07) K/mm3 RBC (4.63-6.08) M/mm3 Hgb (13.7-17.5) gm/L Hct (40.1-51.0) % MCV (79.0-92.2) fl MCH (25.7-32.2) pg MCHC (32.2-35.5) g/dl RDW Std Deviation (35.1-43.9) fL Plt Count (163-337) K/mm3 MPV (9.4-12.3) fl POC Glucose 127 H 99 120 H (83-110) mg/dL 04/14/17 04/14/17 Range/Units 05:41 05:57 WBC 5.58 (4.23-9.07) K/mm3 RBC 3.57 L (4.63-6.08) M/mm3 Hgb 11.1 L (13.7-17.5) gm/L Hct 35.3 L (40.1-51.0) % MCV 98.9 H (79.0-92.2) fl MCH 31.1 (25.7-32.2) pg MCHC 31.4 L (32.2-35.5) g/dl RDW Std Deviation 62.0 H (35.1-43.9) fL Plt Count 258 (163-337) K/mm3 MPV 8.9 L (9.4-12.3) fl POC Glucose 99 (83-110) mg/dL Med Orders - Current: Current Medications Acetaminophen (Tylenol) 650 mg PO Q8H [facility] Last Admin: 04/14/17 05:35 Dose: 650 mg Allopurinol (Zyloprim) 50 mg PO MOWEFR [facility] Last Admin: 04/11/17 13:26 Dose: 50 mg Bumetanide (Bumex) 1 mg PO DAILY [facility] Last Admin: 04/13/17 10:32 Dose: 1 mg Carvedilol (Coreg) 12.5 mg PO BID [facility] Last Admin: 04/13/17 20:40 Dose: 12.5 mg Cholecalciferol (Vitamin D3) 2,000 units PO DAILY [facility] Last Admin: 04/13/17 08:08 Dose: 2,000 units Clopidogrel Bisulfate (Plavix) 75 mg PO DAILY [facility] Last Admin: 04/13/17 08:08 Dose: 75 mg Docusate Sodium (Colace) 100 mg PO BID [facility] Last Admin: 04/13/17 22:49 Dose: Not Given Donepezil HCl (Aricept) 10 mg PO BEDTIME [facility] Last Admin: 04/13/17 20:40 Dose: 10 mg Enoxaparin Sodium (Lovenox) 40 mg SUBCUT DAILY [facility] Last Admin: 04/13/17 08:08 Dose: 40 mg Ferrous Sulfate (Ferrous Sulfate) 325 mg PO DAILY [facility] Last Admin: 04/13/17 08:08 Dose: 325 mg Finasteride (Proscar) 5 mg PO ACDINNER [facility] Last Admin: 06/04/17 15:46 Dose: 5 mg Gabapentin (Neurontin) 200 mg PO BID [facility] Last Admin: 04/13/17 20:42 Dose: 200 mg Guaifenesin/Phenylephrine HCl (Robitussin Dm) 5 ml PO TID PRN PRN Reason: Cough Levothyroxine Sodium (Synthroid) 50 mcg PO ACBRK [facility] Last Admin: 04/14/17 05:36 Dose: 50 mcg Magnesium Oxide (Magnesium Oxide) 400 mg PO DAILY [facility] Last Admin: 04/13/17 08:08 Dose: 400 mg Nitroglycerin (Nitrostat) 0.4 mg SL Q5M PRN PRN Reason: Chest Pain Pramipexole Dihydrochloride (Mirapex) 0.125 mg PO BEDTIME [facility] Last Admin: 04/13/17 20:41 Dose: 0.125 mg Sertraline HCl (Zoloft) 25 mg PO DAILY [facility] Last Admin: 04/13/17 08:08 Dose: 25 mg Simvastatin (Zocor) 20 mg PO ACDINNER [facility] Last Admin: 04/13/17 15:46 Dose: 20 mg Sodium Chloride (Saline Flush) 10 ml FLUSH ASDIRECTED PRN PRN Reason: Keep Vein Open Last Admin: 04/08/17 09:11 Dose: 10 ml Spironolactone (Aldactone) 25 mg PO DAILY [facility] Last Admin: 04/13/17 08:07 Dose: 25 mg Tamsulosin HCl (Flomax) 0.8 mg PO DAILY@1800 [facility] Last Admin: 04/13/17 17:57 Dose: 0.8 mg Terazosin HCl (Hytrin) 1 mg PO BID [facility] Last Admin: 04/13/17 20:41 Dose: 1 mg Discontinued Medications Bumetanide (Bumex) 1 mg IVPUSH ONETIME ONE Stop: 04/08/17 13:34 Last Admin: 04/08/17 14:49 Dose: 1 mg Bumetanide (Bumex) 1 mg IVPUSH ONETIME ONE Stop: 04/09/17 10:36 Last Admin: 04/09/17 11:03 Dose: 1 mg Bumetanide (Bumex) 1 mg IVPUSH ONETIME ONE Stop: 04/09/17 18:39 Last Admin: 04/09/17 18:27 Dose: 1 mg Bumetanide (Bumex) 1 mg IVPUSH ONETIME ONE Stop: 04/10/17 10:36 Last Admin: 04/10/17 10:04 Dose: 1 mg Bumetanide (Bumex) 1 mg IVPUSH ONETIME ONE Stop: 04/11/17 12:46 Last Admin: 04/11/17 13:11 Dose: 1 mg Bumetanide (Bumex) 1 mg IVPUSH ONETIME ONE Stop: 04/12/17 09:01 Last Admin: 04/12/17 08:03 Dose: 1 mg Bumetanide (Bumex) 1 mg IVPUSH ONETIME ONE Stop: 04/12/17 15:01 Last Admin: 04/12/17 15:22 Dose: 1 mg Clopidogrel Bisulfate (Plavix) 75 mg PO DAILY [facility] Ferrous Sulfate (Ferrous Sulfate) 1 mg PO DAILY [facility] Furosemide (Lasix) 60 mg IVPUSH NOW ONE Stop: 04/08/17 08:29 Last Admin: 04/08/17 09:01 Dose: 60 mg Magnesium Sulfate 2 gm/ Premix 50 mls @ 25 mls/hr IV ONETIME ONE Stop: 04/09/17 12:39 Last Admin: 04/09/17 10:55 Dose: 25 mls/hr Terazosin HCl (Hytrin) 1 mg PO BID [facility] Last Admin: 04/11/17 13:21 Dose: Not Given - Exam Quality Assessment: DVT prophylaxis General: alert, cooperative, no acute distress HEENT: Pupils equal, Pupils reactive, EOMI, Mucous membr. moist/pink Neck: supple Lungs: Clear to auscultation, Normal respiratory effort, Decreased breath sounds (lower lobes bilat) Cardiovascular: Regular Rate, Regular Rhythm, Murmurs Abdomen: bowel sounds present, soft, no tenderness, no distension (Male) Exam: Deferred Extremities: no edema, no calf tenderness, other (venous changes; varicosities noted bilat to LE) Peripheral Pulses: 1+: Dorsalis Pedis (L), Dorsalis Pedis (R) Neurological: no new focal deficit Psy/Mental Status: alert, normal mood - Problem List & Annotations (1) Acute exacerbation of CHF (congestive heart failure) SNOMED Code(s): 44332173 Code(s): I50.9 - HEART FAILURE, UNSPECIFIED Status: Resolved Priority: High Current Visit: Yes Qualifiers: Congestive heart failure type: diastolic Qualified Code(s): I50.33 - Acute on chronic diastolic (congestive) heart failure (2) CKD (chronic kidney disease) SNOMED Code(s): 394184483 Code(s): N18.9 - CHRONIC KIDNEY DISEASE, UNSPECIFIED Status: Chronic Priority: High Current Visit: Yes (3) A-fib SNOMED Code(s): 59635863 Code(s): I48.91 - UNSPECIFIED ATRIAL FIBRILLATION Status: Chronic Priority: High Current Visit: Yes Qualifiers: Atrial fibrillation type: chronic Qualified Code(s): I48.2 - Chronic atrial fibrillation (4) Alzheimers disease SNOMED Code(s): 19026735 Code(s): G30.9 - ALZHEIMER'S DISEASE, UNSPECIFIED Status: Chronic Priority: Medium Current Visit: Yes Qualifiers: Dementia behavioral disturbance: without behavioral disturbance - Problem List Review Problem List Initiated/Reviewed/Updated: Yes - My Orders Last 24 Hours: My Active Orders 04/14/17 06:47 BASIC METABOLIC PANEL,BMP [CHEM] Routine CBC WITH AUTO DIFF [HEME] Routine - Plan Plan:: Impression/Plan: Acute CHF exacerbation, baseline NYHA class III--significantly improved -Continue duireses, change oral bumex, continue aldactone Hx CAD/MS-stable, on plavix AFib-rate controlled -CHADS score is 4 points, 8.5% risk of stroke; no anticoagulation on board. -Will check with PCP, Dr. Soliman for contraindications that are not documented within hospital record, proceed based on his advisement. 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 Other: GI/DVT prophylax PT/OT CM/SW for dc planning assistance Daily weight Heart healthy diet Teds bilat LOS>96 hours with CHF treatment and placement in new facility; will not be returning to [facility] <Lakeisha Espinal - Last Filed: 04/14/17 15:06> - Patient Data Vitals - most recent: Last Vital Signs Temp 36.6 C 04/14/17 14:39 Pulse 58 L 04/14/17 14:39 Resp 16 04/14/17 14:39 BP 95/49 L 04/14/17 14:39 Pulse Ox 92 L 04/14/17 14:39 I&O - last 24 hours: Intake & Output 04/14/17 04/14/17 04/14/17 06:59 14:59 22:59 Intake Total 240 200 Balance 240 200 Lab Results last 24 hrs: Laboratory Results - last 24 hr 04/12/17 04/13/17 04/13/17 Range/Units 20:48 06:23 17:44 WBC (4.23-9.07) K/mm3 RBC (4.63-6.08) M/mm3 Hgb (13.7-17.5) gm/L Hct (40.1-51.0) % MCV (79.0-92.2) fl MCH (25.7-32.2) pg MCHC (32.2-35.5) g/dl RDW Std Deviation (35.1-43.9) fL Plt Count (163-337) K/mm3 MPV (9.4-12.3) fl Sodium (136-145) mEq/L Potassium (3.5-5.1) mEq/L Chloride (98-107) mEq/L Carbon Dioxide (21-32) mEq/L Anion Gap (5-15) BUN (7-18) mg/dL Creatinine (0.7-1.3) mg/dL Est Cr Clr Drug Dosing mL/min Estimated GFR (MDRD) (>60) mL/min BUN/Creatinine Ratio (14-18) Glucose (83-115) mg/dL POC Glucose 126 H 96 99 (83-110) mg/dL Calcium (8.5-10.1) mg/dL B-Natriuretic Peptide (0-100) pg/mL 04/13/17 04/14/17 04/14/17 Range/Units 21:10 05:41 05:57 WBC 5.58 (4.23-9.07) K/mm3 RBC 3.57 L (4.63-6.08) M/mm3 Hgb 11.1 L (13.7-17.5) gm/L Hct 35.3 L (40.1-51.0) % MCV 98.9 H (79.0-92.2) fl MCH 31.1 (25.7-32.2) pg MCHC 31.4 L (32.2-35.5) g/dl RDW Std Deviation 62.0 H (35.1-43.9) fL Plt Count 258 (163-337) K/mm3 MPV 8.9 L (9.4-12.3) fl Sodium (136-145) mEq/L Potassium (3.5-5.1) mEq/L Chloride (98-107) mEq/L Carbon Dioxide (21-32) mEq/L Anion Gap (5-15) BUN (7-18) mg/dL Creatinine (0.7-1.3) mg/dL Est Cr Clr Drug Dosing mL/min Estimated GFR (MDRD) (>60) mL/min BUN/Creatinine Ratio (14-18) Glucose (83-115) mg/dL POC Glucose 120 H 99 (83-110) mg/dL Calcium (8.5-10.1) mg/dL B-Natriuretic Peptide (0-100) pg/mL 04/14/17 04/14/17 04/14/17 Range/Units 05:57 05:57 10:46 WBC (4.23-9.07) K/mm3 RBC (4.63-6.08) M/mm3 Hgb (13.7-17.5) gm/L Hct (40.1-51.0) % MCV (79.0-92.2) fl MCH (25.7-32.2) pg MCHC (32.2-35.5) g/dl RDW Std Deviation (35.1-43.9) fL Plt Count (163-337) K/mm3 MPV (9.4-12.3) fl Sodium 141 (136-145) mEq/L Potassium 4.7 (3.5-5.1) mEq/L Chloride 106 (98-107) mEq/L Carbon Dioxide 30 (21-32) mEq/L Anion Gap 9.7 (5-15) BUN 41 H (7-18) mg/dL Creatinine 1.4 H (0.7-1.3) mg/dL Est Cr Clr Drug Dosing 39.26 mL/min Estimated GFR (MDRD) 48 (>60) mL/min BUN/Creatinine Ratio 29.3 H (14-18) Glucose 96 (83-115) mg/dL POC Glucose 141 H (83-110) mg/dL Calcium 9.1 (8.5-10.1) mg/dL B-Natriuretic Peptide 405 H (0-100) pg/mL Med Orders - Current: Current Medications Acetaminophen (Tylenol) 650 mg PO Q8H [facility] Last Admin: 04/14/17 13:57 Dose: 650 mg Allopurinol (Zyloprim) 50 mg PO MOWEFR [facility] Last Admin: 04/14/17 13:57 Dose: 50 mg Bumetanide (Bumex) 1 mg PO DAILY [facility] Last Admin: 04/14/17 08:08 Dose: 1 mg Carvedilol (Coreg) 12.5 mg PO BID [facility] Last Admin: 04/14/17 08:07 Dose: 12.5 mg Cholecalciferol (Vitamin D3) 2,000 units PO DAILY [facility] Last Admin: 04/14/17 08:08 Dose: 2,000 units Clopidogrel Bisulfate (Plavix) 75 mg PO DAILY [facility] Last Admin: 04/14/17 08:08 Dose: 75 mg Docusate Sodium (Colace) 100 mg PO BID [facility] Last Admin: 04/14/17 08:07 Dose: 100 mg Donepezil HCl (Aricept) 10 mg PO BEDTIME [facility] Last Admin: 04/13/17 20:40 Dose: 10 mg Enoxaparin Sodium (Lovenox) 40 mg SUBCUT DAILY [facility] Last Admin: 04/14/17 08:06 Dose: 40 mg Ferrous Sulfate (Ferrous Sulfate) 325 mg PO DAILY [facility] Last Admin: 04/14/17 08:08 Dose: 325 mg Finasteride (Proscar) 5 mg PO ACDINNER [facility] Last Admin: 04/13/17 15:46 Dose: 5 mg Gabapentin (Neurontin) 200 mg PO BID [facility] Last Admin: 04/14/17 08:07 Dose: 200 mg Guaifenesin/Phenylephrine HCl (Robitussin Dm) 5 ml PO TID PRN PRN Reason: Cough Levothyroxine Sodium (Synthroid) 50 mcg PO ACBRK [facility] Last Admin: 04/14/17 05:36 Dose: 50 mcg Magnesium Oxide (Magnesium Oxide) 400 mg PO DAILY [facility] Last Admin: 04/14/17 08:08 Dose: 400 mg Nitroglycerin (Nitrostat) 0.4 mg SL Q5M PRN PRN Reason: Chest Pain Pramipexole Dihydrochloride (Mirapex) 0.125 mg PO BEDTIME [facility] Last Admin: 04/13/17 20:41 Dose: 0.125 mg Sertraline HCl (Zoloft) 25 mg PO DAILY [facility] Last Admin: 04/14/17 08:08 Dose: 25 mg Simvastatin (Zocor) 20 mg PO ACDINNER [facility] Last Admin: 04/13/17 15:46 Dose: 20 mg Sodium Chloride (Saline Flush) 10 ml FLUSH ASDIRECTED PRN PRN Reason: Keep Vein Open Last Admin: 04/08/17 09:11 Dose: 10 ml Spironolactone (Aldactone) 25 mg PO DAILY [facility] Last Admin: 04/14/17 08:08 Dose: 25 mg Tamsulosin HCl (Flomax) 0.8 mg PO DAILY@1800 [facility] Last Admin: 04/13/17 17:57 Dose: 0.8 mg Terazosin HCl (Hytrin) 1 mg PO BID [facility] Last Admin: 04/14/17 08:07 Dose: 1 mg Discontinued Medications Bumetanide (Bumex) 1 mg IVPUSH ONETIME ONE Stop: 04/08/17 13:34 Last Admin: 04/08/17 14:49 Dose: 1 mg Bumetanide (Bumex) 1 mg IVPUSH ONETIME ONE Stop: 04/09/17 10:36 Last Admin: 04/09/17 11:03 Dose: 1 mg Bumetanide (Bumex) 1 mg IVPUSH ONETIME ONE Stop: 04/09/17 18:39 Last Admin: 04/09/17 18:27 Dose: 1 mg Bumetanide (Bumex) 1 mg IVPUSH ONETIME ONE Stop: 04/10/17 10:36 Last Admin: 04/10/17 10:04 Dose: 1 mg Bumetanide (Bumex) 1 mg IVPUSH ONETIME ONE Stop: 04/11/17 12:46 Last Admin: 04/11/17 13:11 Dose: 1 mg Bumetanide (Bumex) 1 mg IVPUSH ONETIME ONE Stop: 04/12/17 09:01 Last Admin: 04/12/17 08:03 Dose: 1 mg Bumetanide (Bumex) 1 mg IVPUSH ONETIME ONE Stop: 04/12/17 15:01 Last Admin: 04/12/17 15:22 Dose: 1 mg Clopidogrel Bisulfate (Plavix) 75 mg PO DAILY [facility] Ferrous Sulfate (Ferrous Sulfate) 1 mg PO DAILY [facility] Furosemide (Lasix) 60 mg IVPUSH NOW ONE Stop: 04/08/17 08:29 Last Admin: 04/08/17 09:01 Dose: 60 mg Magnesium Sulfate 2 gm/ Premix 50 mls @ 25 mls/hr IV ONETIME ONE Stop: 04/09/17 12:39 Last Admin: 04/09/17 10:55 Dose: 25 mls/hr Terazosin HCl (Hytrin) 1 mg PO BID [facility] Last Admin: 04/11/17 13:21 Dose: Not Given - Problem List & Annotations (1) Aortic stenosis SNOMED Code(s): 67102288 Code(s): I35.0 - NONRHEUMATIC AORTIC (VALVE) STENOSIS Status: Acute Current Visit: Yes (2) Acute exacerbation of CHF (congestive heart failure) SNOMED Code(s): 40408306 Code(s): I50.9 - HEART FAILURE, UNSPECIFIED Status: Resolved Priority: High Current Visit: Yes Qualifiers: Congestive heart failure type: diastolic Qualified Code(s): I50.33 - Acute on chronic diastolic (congestive) heart failure (3) Hypoxia SNOMED Code(s): 684964072, 220730100 Code(s): R09.02 - HYPOXEMIA Status: Acute Current Visit: Yes (4) Mild renal insufficiency SNOMED Code(s): 666149097 Code(s): N28.9 - DISORDER OF KIDNEY AND URETER, UNSPECIFIED Status: Acute Current Visit: Yes (5) Chronic renal insufficiency, stage IV (severe) SNOMED Code(s): 65403296 Code(s): N18.4 - CHRONIC KIDNEY DISEASE, STAGE 4 (SEVERE) Status: Acute Current Visit: No (6) COPD (chronic obstructive pulmonary disease) SNOMED Code(s): 46665368 Code(s): J44.9 - CHRONIC OBSTRUCTIVE PULMONARY DISEASE, UNSPECIFIED Status : Acute Current Visit: Yes (7) GERD (gastroesophageal reflux disease) SNOMED Code(s): 264372855 Code(s): K21.9 - GASTRO-ESOPHAGEAL REFLUX DISEASE WITHOUT ESOPHAGITIS Status: Acute Current Visit: Yes (8) A-fib SNOMED Code(s): 60762134 Code(s): I48.91 - UNSPECIFIED ATRIAL FIBRILLATION Status: Chronic Priority: High Current Visit: Yes Qualifiers: Atrial fibrillation type: chronic Qualified Code(s): I48.2 - Chronic atrial fibrillation (9) Diabetes mellitus SNOMED Code(s): 71078503 Code(s): E11.9 - TYPE 2 DIABETES MELLITUS WITHOUT COMPLICATIONS Status: Acute Current Visit: Yes (10) Hyperlipidemia associated with type 2 diabetes mellitus SNOMED Code(s): 028451891244, 905739567406 Code(s): E11.69 - TYPE 2 DIABETES MELLITUS WITH OTHER SPECIFIED COMPLICATION ; E78.5 - HYPERLIPIDEMIA, UNSPECIFIED Status: Acute Current Visit: Yes (11) Alzheimers disease SNOMED Code(s): 22143163 Code(s): G30.9 - ALZHEIMER'S DISEASE, UNSPECIFIED Status: Chronic Priority: Medium Current Visit: Yes Qualifiers: Dementia behavioral disturbance: without behavioral disturbance (12) CAD (coronary artery disease) SNOMED Code(s): 11133221 Code(s): I25.10 - ATHSCL HEART DISEASE OF [place] CORONARY ARTERY W/O ANG PCTRS Status: Acute Current Visit: Yes - My Orders Last 24 Hours: My Active Orders 04/17/17 07:00 CBC W/O DIFF,HEMOGRAM [HEME] MOTH@0700 04/21/17 07:00 CBC W/O DIFF,HEMOGRAM [HEME] MOTH@0700 04/24/17 07:00 CBC W/O DIFF,HEMOGRAM [HEME] MOTH@0700 04/28/17 07:00 CBC W/O DIFF,HEMOGRAM [HEME] MOTH@0700 - Plan Plan:: DC likely 04/15/17
[2017-04-14] MEDS: Enoxaparin 40 MG/0.4 ML Syringe SUBCUT SCH (08:06)
[2017-04-14] MEDS: Docusate Sodium 100 MG Cap PO SCH ×2 (08:07→21:01)
[2017-04-14] MEDS: Terazosin 1 MG Cap PO SCH ×2 (08:07→21:02)
[2017-04-14] MEDS: Gabapentin 100 MG Cap PO SCH ×2 (08:07→20:59)
[2017-04-14] MEDS: Carvedilol 12.5 MG Tab PO SCH ×2 (08:07→21:03)
[2017-04-14] MEDS: Magnesium Oxide 400 MG Tab PO SCH (08:08)
[2017-04-14] MEDS: Ferrous Sulfate 325 MG Tab PO SCH (08:08)
[2017-04-14] MEDS: Sertraline 25 MG Tab PO SCH (08:08)
[2017-04-14] MEDS: Cholecalciferol (Vitamin D3) 1,000 Unit Tab PO SCH (08:08)
[2017-04-14] MEDS: Spironolactone 25 MG Tab PO SCH (08:08)
[2017-04-14] MEDS: Bumetanide 1 MG Tab PO SCH (08:08)
[2017-04-14] MEDS: Clopidogrel 75 MG Tab PO SCH (08:08)
[2017-04-14] MEDS: Allopurinol 100 MG Tab PO SCH (13:57)
[2017-04-14] MEDS: Simvastatin 20 MG Tab PO SCH (17:34)
[2017-04-14] MEDS: Finasteride 5 MG Tab PO SCH (17:35)
[2017-04-14] MEDS: Tamsulosin 0.4 MG Cap.ER PO SCH (17:35)
[2017-04-14] MEDS: Donepezil 10 MG Tab PO SCH (21:01)
[2017-04-14] MEDS: Pramipexole 0.25 MG Tab PO SCH (21:02)
--- NOTE | 2017-04-15 06:31 | PCM.DCSUM1 ---
<Lula Magaña M - Last Filed: 04/15/17 06:28> Discharge Summary - Hospital Course Free Text/Narrative:: 89 year old male with history of CHF, recently seen and evaluated at [facility] for CHF/CKD. Meds were adjusted reportedly to avoid dehydration, this history was provided by his children who were present during the ED visit. He had had his diuretic adjusted, and as a result had less dehydration, however slow progressive weight gain occurred. He was to have been weighed daily at the SNF, this reportedly was not done. He is 16 pounds heavier as a result per his son and daughter. Based on the described activity level, he is NYHA, class III. Aggressive invasive management for heart disease is declined; he is DNR/DNI - Discharge Data Discharge Date: 04/15/17 Discharge Disposition: DC/Tfer to Other 70 Condition: Good - Discharge Diagnosis/Problem(s) (1) Acute exacerbation of CHF (congestive heart failure) SNOMED Code(s): 54055180 ICD Code: I50.9 - HEART FAILURE, UNSPECIFIED Status: Resolved Priority: High Qualifiers: Congestive heart failure type: diastolic Qualified Code(s): I50.33 - Acute on chronic diastolic (congestive) heart failure (2) CKD (chronic kidney disease) SNOMED Code(s): 344341661 ICD Code: N18.9 - CHRONIC KIDNEY DISEASE, UNSPECIFIED Status: Chronic Priority: High (3) A-fib SNOMED Code(s): 23828640 ICD Code: I48.91 - UNSPECIFIED ATRIAL FIBRILLATION Status: Chronic Priority: High Qualifiers: Atrial fibrillation type: chronic Qualified Code(s): I48.2 - Chronic atrial fibrillation (4) Alzheimers disease SNOMED Code(s): 08388407 ICD Code: G30.9 - ALZHEIMER'S DISEASE, UNSPECIFIED Status: Chronic Priority: Medium Qualifiers: Dementia behavioral disturbance: without behavioral disturbance - Patient Summary/Data Operative Procedure(s) Performed: None Complications: None Consults: Consultations 04/08/17 14:00 Consult to Occupational Therapy [OT Evaluation and Treatment] [CONS] Routine Consult to Physical Therapy [PT Evaluation and Treatment] [CONS] Routine 04/08/17 16:00 Consult to Instant Print Operator [CONS] Routine Labs Pending at D/C: None Recommended Follow-up Testing/Procedures: Follow up with PCP within one week of discharge Planned Operative Procedure(s) after DC: None Hospital Course: As above - Patient Instructions Diet: Heart Healthy Diet, Diabetic Diet Fluid Restriction: 2000 mL Activity: As Tolerated (PT/OT to continue to eval and treat) Driving: Do Not Drive Showering/Bathing: May Shower Notify Provider of: Fever, Increased Pain, Swelling and Redness, Nausea and/or Vomiting (shortness of breath; chest pain) - Discharge Plan Prescriptions/Med Rec: Bumetanide [Bumex] 1 mg PO DAILY #30 tablet Spironolactone [Aldactone] 25 mg PO DAILY #30 tablet Terazosin [Hytrin] 1 mg PO BID #60 cap Home Medications: Home Meds Acetaminophen [Tylenol] 650 mg PO Q8H 04/11/16 [History] Allopurinol [Zyloprim] 50 mg PO MOWEFR 04/11/16 [History] Carvedilol [Coreg] 12.5 mg PO BID 04/11/16 [History] Cholecalciferol (Vitamin D3) [Vitamin D3] 2,000 unit PO DAILY 04/11/16 [History] Donepezil [Aricept] 10 mg PO BEDTIME 04/11/16 [History] Finasteride 5 mg PO ACDINNER 04/11/16 [History] Levothyroxine Sodium [Levoxyl] 50 mcg PO DAILY 04/11/16 [History] Magnesium Oxide 400 mg PO DAILY 04/11/16 [History] Nitroglycerin [Nitrostat] 0.4 mg SL Q5M PRN 04/11/16 [History] Pravastatin Sodium [Pravachol] 40 mg PO ACDINNER 04/11/16 [History] Tamsulosin HCl [Flomax] 0.8 mg PO 1800 04/11/16 [History] Carboxymethylcellulose Sodium [Refresh Tears 0.5%] 1 drop EYEBOTH TID 04/19/16 [ History] Dextromethorphan/guaiFENesin [Robitussin DM] 10 ml PO TID PRN 04/19/16 [History] Ranitidine [Zantac] 150 mg PO ACBREAKFAST 04/19/16 [History] Vit C/E/Zn/Coppr/Lutein/Zeaxan [Preservision Areds 2 Softgel] 2 cap PO ACDINNER 04/19/16 [History] Ferrous Sulfate 1 mg PO DAILY 08/31/16 [History] Gabapentin [Neurontin] 200 mg PO BID 02/13/17 [History] Sertraline [Zoloft] 25 mg PO DAILY 02/13/17 [History] Docusate Sodium [Colace] 100 mg PO BID 03/07/17 [History] Pramipexole Di-HCl [Mirapex] 0.125 mg PO BEDTIME 03/07/17 [History] Clopidogrel Bisulfate [Clopidogrel] 75 mg PO DAILY 04/09/17 [History] Bumetanide [Bumex] 1 mg PO DAILY #30 tablet 04/15/17 [Rx] Spironolactone [Aldactone] 25 mg PO DAILY #30 tablet 04/15/17 [Rx] Terazosin [Hytrin] 1 mg PO BID #60 cap 04/15/17 [Rx] Patient Handouts: Heart Failure, [id number], Atrial Fibrillation, Easy-to- Read, Hypertension Forms: ED Department Discharge Referrals: Baldo Soliman MD [Primary Care Provider] - - Discharge Summary/Plan Comment DC Time >30 min.: Yes (40 min) - General Info Date of Service: 04/15/17 Admission Dx/Problem (Free Text: Mr Marino is seen this morning, resting comfortably in bed. Denies complaints of pain, SOB, CP. Slept well. Up ambulating with PT, doing well. Plans for DC to [facility] this morning. Functional Status: Reports: pain controlled, tolerating diet, ambulating, urinating. Denies: new symptoms - Review of Systems General: Reports: No Symptoms. Denies: Fever HEENT: Reports: no symptoms Pulmonary: Reports: no symptoms. Denies: shortness of breath, cough Cardiovascular: Reports: No Symptoms. Denies: Chest Pain, Palpitations, Dyspnea on Exertion, Edema Gastrointestinal: Reports: No symptoms Genitourinary: Reports: no symptoms Neurological: Reports: Confusion (pleasantly confused) Psychiatric: Reports: no symptoms - Patient Data Vitals - Most Recent: Last Vital Signs Temp 97.3 F 04/15/17 02:08 Pulse 60 04/15/17 02:08 Resp 16 04/15/17 02:08 BP 124/57 L 04/15/17 02:08 Pulse Ox 92 L 04/15/17 02:08 Weight - Most Recent: 84.686 kg I&O - Last 24 hours: Intake & Output 04/14/17 04/14/17 04/15/17 14:59 22:59 06:59 Intake Total 200 440 100 Balance 200 440 100 Lab Results - Last 24 hrs: Laboratory Results - last 24 hr 04/12/17 04/13/17 04/14/17 Range/Units 20:48 06:23 05:57 WBC 5.58 (4.23-9.07) K/mm3 RBC 3.57 L (4.63-6.08) M/mm3 Hgb 11.1 L (13.7-17.5) gm/L Hct 35.3 L (40.1-51.0) % MCV 98.9 H (79.0-92.2) fl MCH 31.1 (25.7-32.2) pg MCHC 31.4 L (32.2-35.5) g/dl RDW Std Deviation 62.0 H (35.1-43.9) fL Plt Count 258 (163-337) K/mm3 MPV 8.9 L (9.4-12.3) fl Sodium (136-145) mEq/L Potassium (3.5-5.1) mEq/L Chloride (98-107) mEq/L Carbon Dioxide (21-32) mEq/L Anion Gap (5-15) BUN (7-18) mg/dL Creatinine (0.7-1.3) mg/dL Est Cr Clr Drug Dosing mL/min Estimated GFR (MDRD) (>60) mL/min BUN/Creatinine Ratio (14-18) Glucose (83-115) mg/dL POC Glucose 126 H 96 (83-110) mg/dL Calcium (8.5-10.1) mg/dL B-Natriuretic Peptide (0-100) pg/mL 04/14/17 04/14/17 04/14/17 Range/Units 05:57 05:57 10:46 WBC (4.23-9.07) K/mm3 RBC (4.63-6.08) M/mm3 Hgb (13.7-17.5) gm/L Hct (40.1-51.0) % MCV (79.0-92.2) fl MCH (25.7-32.2) pg MCHC (32.2-35.5) g/dl RDW Std Deviation (35.1-43.9) fL Plt Count (163-337) K/mm3 MPV (9.4-12.3) fl Sodium 141 (136-145) mEq/L Potassium 4.7 (3.5-5.1) mEq/L Chloride 106 (98-107) mEq/L Carbon Dioxide 30 (21-32) mEq/L Anion Gap 9.7 (5-15) BUN 41 H (7-18) mg/dL Creatinine 1.4 H (0.7-1.3) mg/dL Est Cr Clr Drug Dosing 39.26 mL/min Estimated GFR (MDRD) 48 (>60) mL/min BUN/Creatinine Ratio 29.3 H (14-18) Glucose 96 (83-115) mg/dL POC Glucose 141 H (83-110) mg/dL Calcium 9.1 (8.5-10.1) mg/dL B-Natriuretic Peptide 405 H (0-100) pg/mL 04/14/17/03/26 Range/Units 17:06 22:37 WBC (4.23-9.07) K/mm3 RBC (4.63-6.08) M/mm3 Hgb (13.7-17.5) gm/L Hct (40.1-51.0) % MCV (79.0-92.2) fl MCH (25.7-32.2) pg MCHC (32.2-35.5) g/dl RDW Std Deviation (35.1-43.9) fL Plt Count (163-337) K/mm3 MPV (9.4-12.3) fl Sodium (136-145) mEq/L Potassium (3.5-5.1) mEq/L Chloride (98-107) mEq/L Carbon Dioxide (21-32) mEq/L Anion Gap (5-15) BUN (7-18) mg/dL Creatinine (0.7-1.3) mg/dL Est Cr Clr Drug Dosing mL/min Estimated GFR (MDRD) (>60) mL/min BUN/Creatinine Ratio (14-18) Glucose (83-115) mg/dL POC Glucose 92 124 H (83-110) mg/dL Calcium (8.5-10.1) mg/dL B-Natriuretic Peptide (0-100) pg/mL Med Orders - Current: Current Medications Acetaminophen (Tylenol) 650 mg PO Q8H [facility] Last Admin: 04/14/17 21:04 Dose: 650 mg Allopurinol (Zyloprim) 50 mg PO MOWEFR [facility] Last Admin: 04/14/17 13:57 Dose: 50 mg Bumetanide (Bumex) 1 mg PO DAILY [facility] Last Admin: 04/14/17 08:08 Dose: 1 mg Carvedilol (Coreg) 12.5 mg PO BID [facility] Last Admin: 04/14/17 21:03 Dose: 12.5 mg Cholecalciferol (Vitamin D3) 2,000 units PO DAILY [facility] Last Admin: 04/14/17 08:08 Dose: 2,000 units Clopidogrel Bisulfate (Plavix) 75 mg PO DAILY [facility] Last Admin: 04/14/17 08:08 Dose: 75 mg Docusate Sodium (Colace) 100 mg PO BID [facility] Last Admin: 04/14/17 21:01 Dose: 100 mg Donepezil HCl (Aricept) 10 mg PO BEDTIME [facility] Last Admin: 04/14/17 21:01 Dose: 10 mg Enoxaparin Sodium (Lovenox) 40 mg SUBCUT DAILY [facility] Last Admin: 04/14/17 08:06 Dose: 40 mg Ferrous Sulfate (Ferrous Sulfate) 325 mg PO DAILY [facility] Last Admin: 04/14/17 08:08 Dose: 325 mg Finasteride (Proscar) 5 mg PO ACDINNER [facility] Last Admin: 04/14/17 17:35 Dose: 5 mg Gabapentin (Neurontin) 200 mg PO BID [facility] Last Admin: 04/14/17 20:59 Dose: 200 mg Guaifenesin/Phenylephrine HCl (Robitussin Dm) 5 ml PO TID PRN PRN Reason: Cough Levothyroxine Sodium (Synthroid) 50 mcg PO ACBRK [facility] Last Admin: 04/14/17 05:36 Dose: 50 mcg Magnesium Oxide (Magnesium Oxide) 400 mg PO DAILY [facility] Last Admin: 04/14/17 08:08 Dose: 400 mg Nitroglycerin (Nitrostat) 0.4 mg SL Q5M PRN PRN Reason: Chest Pain Pramipexole Dihydrochloride (Mirapex) 0.125 mg PO BEDTIME [facility] Last Admin: 04/14/17 21:02 Dose: 0.125 mg Sertraline HCl (Zoloft) 25 mg PO DAILY [facility] Last Admin: 04/14/17 08:08 Dose: 25 mg Simvastatin (Zocor) 20 mg PO ACDINNER [facility] Last Admin: 04/14/17 17:34 Dose: 20 mg Sodium Chloride (Saline Flush) 10 ml FLUSH ASDIRECTED PRN PRN Reason: Keep Vein Open Last Admin: 04/08/17 09:11 Dose: 10 ml Spironolactone (Aldactone) 25 mg PO DAILY [facility] Last Admin: 04/14/17 08:08 Dose: 25 mg Tamsulosin HCl (Flomax) 0.8 mg PO DAILY@1800 [facility] Last Admin: 04/14/17 17:35 Dose: 0.8 mg Terazosin HCl (Hytrin) 1 mg PO BID [facility] Last Admin: 04/14/17 21:02 Dose: 1 mg Discontinued Medications Bumetanide (Bumex) 1 mg IVPUSH ONETIME ONE Stop: 04/08/17 13:34 Last Admin: 04/08/17 14:49 Dose: 1 mg Bumetanide (Bumex) 1 mg IVPUSH ONETIME ONE Stop: 04/09/17 10:36 Last Admin: 04/09/17 11:03 Dose: 1 mg Bumetanide (Bumex) 1 mg IVPUSH ONETIME ONE Stop: 04/09/17 18:39 Last Admin: 04/09/17 18:27 Dose: 1 mg Bumetanide (Bumex) 1 mg IVPUSH ONETIME ONE Stop: 04/10/17 10:36 Last Admin: 04/10/17 10:04 Dose: 1 mg Bumetanide (Bumex) 1 mg IVPUSH ONETIME ONE Stop: 04/11/17 12:46 Last Admin: 04/11/17 13:11 Dose: 1 mg Bumetanide (Bumex) 1 mg IVPUSH ONETIME ONE Stop: 04/12/17 09:01 Last Admin: 04/12/17 08:03 Dose: 1 mg Bumetanide (Bumex) 1 mg IVPUSH ONETIME ONE Stop: 04/12/17 15:01 Last Admin: 04/12/17 15:22 Dose: 1 mg Clopidogrel Bisulfate (Plavix) 75 mg PO DAILY [facility] Ferrous Sulfate (Ferrous Sulfate) 1 mg PO DAILY IAN Furosemide (Lasix) 60 mg IVPUSH NOW ONE Stop: 04/08/17 08:29 Last Admin: 04/08/17 09:01 Dose: 60 mg Magnesium Sulfate 2 gm/ Premix 50 mls @ 25 mls/hr IV ONETIME ONE Stop: 04/09/17 12:39 Last Admin: 04/09/17 10:55 Dose: 25 mls/hr Terazosin HCl (Hytrin) 1 mg PO BID IAN Last Admin: 04/11/17 13:21 Dose: Not Given - Exam Quality Assessment: Reports: DVT prophylaxis General: Reports: alert, cooperative, no acute distress HEENT: Reports: Pupils equal, Pupils reactive, EOMI, Mucous membr. moist/pink Neck: Reports: supple Lungs: Reports: Clear to auscultation, Normal respiratory effort, Decreased breath sounds (bases bilat) Cardiovascular: Reports: Murmurs Abdomen: Reports: bowel sounds present, soft, no tenderness, no distension (Male) Exam: Deferred Rectal (Males) Exam: Deferred Extremities: Reports: no edema, no calf tenderness, other (varicosities bilat to LE) Skin: Reports: warm, dry Neurological: Reports: no new focal deficit Psy/Mental Status: Reports: alert, normal affect, normal mood (pleasantly confused) *Q Meaningful Use (DIS) - VTE *Q VTE Criteria *Q: - Stroke *Q Stroke Criteria *Q: - AMI *Q AMI Criteria *Q: <Lakeisha Espinal - Last Filed: 04/15/17 16:26> Discharge Summary - Hospital Course Free Text/Narrative:: The patient improved and was DCd to a new facility; fluid status should be monitored. - Discharge Diagnosis/Problem(s) (1) Aortic stenosis SNOMED Code(s): 32436355 ICD Code: I35.0 - NONRHEUMATIC AORTIC (VALVE) STENOSIS Status: Acute (2) Acute exacerbation of CHF (congestive heart failure) SNOMED Code(s): 65131724 ICD Code: I50.9 - HEART FAILURE, UNSPECIFIED Status: Resolved Priority: High Qualifiers: Congestive heart failure type: diastolic Qualified Code(s): I50.33 - Acute on chronic diastolic (congestive) heart failure (3) Hypoxia SNOMED Code(s): 725972623, 463849093 ICD Code: R09.02 - HYPOXEMIA Status: Acute (4) Mild renal insufficiency SNOMED Code(s): 670106668 ICD Code: N28.9 - DISORDER OF KIDNEY AND URETER, UNSPECIFIED Status: Acute (5) Chronic renal insufficiency, stage IV (severe) SNOMED Code(s): 47147703 ICD Code: N18.4 - CHRONIC KIDNEY DISEASE, STAGE 4 (SEVERE) Status: Acute (6) COPD (chronic obstructive pulmonary disease) SNOMED Code(s): 86465364 ICD Code: J44.9 - CHRONIC OBSTRUCTIVE PULMONARY DISEASE, UNSPECIFIED Status : Acute (7) GERD (gastroesophageal reflux disease) SNOMED Code(s): 406849238 ICD Code: K21.9 - GASTRO-ESOPHAGEAL REFLUX DISEASE WITHOUT ESOPHAGITIS Status: Acute (8) A-fib SNOMED Code(s): 89874944 ICD Code: I48.91 - UNSPECIFIED ATRIAL FIBRILLATION Status: Chronic Priority: High Qualifiers: Atrial fibrillation type: chronic Qualified Code(s): I48.2 - Chronic atrial fibrillation (9) Diabetes mellitus SNOMED Code(s): 71698788 ICD Code: E11.9 - TYPE 2 DIABETES MELLITUS WITHOUT COMPLICATIONS Status: Acute (10) Hyperlipidemia associated with type 2 diabetes mellitus SNOMED Code(s): 330564568784, 795049569928 ICD Code: E11.69 - TYPE 2 DIABETES MELLITUS WITH OTHER SPECIFIED COMPLICATION ; E78.5 - HYPERLIPIDEMIA, UNSPECIFIED Status: Acute (11) Alzheimers disease SNOMED Code(s): 04284518 ICD Code: G30.9 - ALZHEIMER'S DISEASE, UNSPECIFIED Status: Chronic Priority: Medium Qualifiers: Dementia behavioral disturbance: without behavioral disturbance (12) CAD (coronary artery disease) SNOMED Code(s): 87497028 ICD Code: I25.10 - ATHSCL HEART DISEASE OF [place] CORONARY ARTERY W/O ANG PCTRS Status: Acute - Patient Summary/Data Consults: Consultations 04/08/17 14:00 Consult to Occupational Therapy [OT Evaluation and Treatment] [CONS] Routine Consult to Physical Therapy [PT Evaluation and Treatment] [CONS] Routine 04/08/17 16:00 Consult to Instant Print Operator [CONS] Routine - Patient Data Vitals - Most Recent: Last Vital Signs Temp 36.4 C 06/06/17 08:00 Pulse 60 04/15/17 08:00 Resp 12 04/15/17 08:00 BP 141/67 H 04/15/17 08:31 Pulse Ox 99 04/15/17 08:00 I&O - Last 24 hours: Intake & Output 04/15/17 04/15/17 04/15/17 06:59 14:59 22:59 Intake Total 100 210 Balance 100 210 Lab Results - Last 24 hrs: Laboratory Results - last 24 hr 04/14/17 04/14/17 04/15/17 Range/Units 17:06 22:37 06:55 POC Glucose 92 124 H 84 (83-110) mg/dL Med Orders - Current: Current Medications Acetaminophen (Tylenol) 650 mg PO Q8H [facility] Last Admin: 04/15/17 06:49 Dose: 650 mg Allopurinol (Zyloprim) 50 mg PO MOWEFR [facility] Last Admin: 04/14/17 13:57 Dose: 50 mg Bumetanide (Bumex) 1 mg PO DAILY [facility] Last Admin: 04/15/17 08:32 Dose: 1 mg Carvedilol (Coreg) 12.5 mg PO BID [facility] Last Admin: 04/15/17 08:34 Dose: 12.5 mg Cholecalciferol (Vitamin D3) 2,000 units PO DAILY [facility] Last Admin: 04/15/17 08:32 Dose: 2,000 units Clopidogrel Bisulfate (Plavix) 75 mg PO DAILY [facility] Last Admin: 04/15/17 08:34 Dose: 75 mg Docusate Sodium (Colace) 100 mg PO BID [facility] Last Admin: 04/15/17 08:33 Dose: 100 mg Donepezil HCl (Aricept) 10 mg PO BEDTIME [facility] Last Admin: 04/14/17 21:01 Dose: 10 mg Enoxaparin Sodium (Lovenox) 40 mg SUBCUT DAILY [facility] Last Admin: 04/15/17 08:35 Dose: 40 mg Ferrous Sulfate (Ferrous Sulfate) 325 mg PO DAILY [facility] Last Admin: 04/15/17 08:35 Dose: 325 mg Finasteride (Proscar) 5 mg PO ACDINNER [facility] Last Admin: 04/14/17 17:35 Dose: 5 mg Gabapentin (Neurontin) 200 mg PO BID [facility] Last Admin: 04/15/17 08:33 Dose: 200 mg Guaifenesin/Phenylephrine HCl (Robitussin Dm) 5 ml PO TID PRN PRN Reason: Cough Levothyroxine Sodium (Synthroid) 50 mcg PO ACBRK [facility] Last Admin: 04/15/17 06:51 Dose: 50 mcg Magnesium Oxide (Magnesium Oxide) 400 mg PO DAILY [facility] Last Admin: 04/15/17 08:33 Dose: 400 mg Nitroglycerin (Nitrostat) 0.4 mg SL Q5M PRN PRN Reason: Chest Pain Pramipexole Dihydrochloride (Mirapex) 0.125 mg PO BEDTIME [facility] Last Admin: 04/14/17 21:02 Dose: 0.125 mg Sertraline HCl (Zoloft) 25 mg PO DAILY [facility] Last Admin: 04/15/17 08:34 Dose: 25 mg Simvastatin (Zocor) 20 mg PO ACDINNER [facility] Last Admin: 04/14/17 17:34 Dose: 20 mg Sodium Chloride (Saline Flush) 10 ml FLUSH ASDIRECTED PRN PRN Reason: Keep Vein Open Last Admin: 04/08/17 09:11 Dose: 10 ml Spironolactone (Aldactone) 25 mg PO DAILY [facility] Last Admin: 04/15/17 08:34 Dose: 25 mg Tamsulosin HCl (Flomax) 0.8 mg PO DAILY@1800 [facility] Last Admin: 04/14/17 17:35 Dose: 0.8 mg Terazosin HCl (Hytrin) 1 mg PO BID [facility] Last Admin: 04/15/17 08:31 Dose: 1 mg Discontinued Medications Bumetanide (Bumex) 1 mg IVPUSH ONETIME ONE Stop: 04/08/17 13:34 Last Admin: 04/08/17 14:49 Dose: 1 mg Bumetanide (Bumex) 1 mg IVPUSH ONETIME ONE Stop: 04/09/17 10:36 Last Admin: 04/09/17 11:03 Dose: 1 mg Bumetanide (Bumex) 1 mg IVPUSH ONETIME ONE Stop: 04/09/17 18:39 Last Admin: 04/09/17 18:27 Dose: 1 mg Bumetanide (Bumex) 1 mg IVPUSH ONETIME ONE Stop: 04/10/17 10:36 Last Admin: 04/10/17 10:04 Dose: 1 mg Bumetanide (Bumex) 1 mg IVPUSH ONETIME ONE Stop: 04/11/17 12:46 Last Admin: 04/11/17 13:11 Dose: 1 mg Bumetanide (Bumex) 1 mg IVPUSH ONETIME ONE Stop: 04/12/17 09:01 Last Admin: 04/12/17 08:03 Dose: 1 mg Bumetanide (Bumex) 1 mg IVPUSH ONETIME ONE Stop: 04/12/17 15:01 Last Admin: 04/12/17 15:22 Dose: 1 mg Clopidogrel Bisulfate (Plavix) 75 mg PO DAILY IAN Ferrous Sulfate (Ferrous Sulfate) 1 mg PO DAILY I[facility] Furosemide (Lasix) 60 mg IVPUSH NOW ONE Stop: 04/08/17 08:29 Last Admin: 04/08/17 09:01 Dose: 60 mg Magnesium Sulfate 2 gm/ Premix 50 mls @ 25 mls/hr IV ONETIME ONE Stop: 04/09/17 12:39 Last Admin: 04/09/17 10:55 Dose: 25 mls/hr Terazosin HCl (Hytrin) 1 mg PO BID I[facility] Last Admin: 04/11/17 13:21 Dose: Not Given *Q Meaningful Use (DIS) - VTE *Q VTE Criteria *Q: - Stroke *Q Stroke Criteria *Q: - AMI *Q AMI Criteria *Q:
[2017-04-15] MEDS: Acetaminophen 325 MG Tab PO SCH (06:49)
[2017-04-15] MEDS: Levothyroxine 50 MCG Tab PO SCH (06:51)
[2017-04-15 08:31] VITALS: BP 141/67
[2017-04-15] MEDS: Terazosin 1 MG Cap PO SCH (08:31)
[2017-04-15] MEDS: Cholecalciferol (Vitamin D3) 1,000 Unit Tab PO SCH (08:32)
[2017-04-15] MEDS: Bumetanide 1 MG Tab PO SCH (08:32)
[2017-04-15] MEDS: Docusate Sodium 100 MG Cap PO SCH (08:33)
[2017-04-15] MEDS: Magnesium Oxide 400 MG Tab PO SCH (08:33)
[2017-04-15] MEDS: Gabapentin 100 MG Cap PO SCH (08:33)
[2017-04-15] MEDS: Carvedilol 12.5 MG Tab PO SCH (08:34)
[2017-04-15] MEDS: Sertraline 25 MG Tab PO SCH (08:34)
[2017-04-15] MEDS: Clopidogrel 75 MG Tab PO SCH (08:34)
[2017-04-15] MEDS: Spironolactone 25 MG Tab PO SCH (08:34)
[2017-04-15] MEDS: Enoxaparin 40 MG/0.4 ML Syringe SUBCUT SCH (08:35)
[2017-04-15] MEDS: Ferrous Sulfate 325 MG Tab PO SCH (08:35)
== END 2017-04-15 10:30 | disposition other institution (70) | DRG 292 ==
LOC: SUPCPDRO 08:18 → JD.ED 08:18 → JD.MS 11:00
PROVIDERS: ADMIT Internal Medicine Cardiovascular Disease; ATTEND Internal Medicine Cardiovascular Disease
DX: I50.33 Acute on chronic diastolic (congestive) heart failure (principal); N18.4 Chronic kidney disease, stage 4 (severe); N17.9 Acute kidney failure, unspecified; I48.2 Chronic atrial fibrillation; G30.9 Alzheimer's disease, unspecified; Z66 Do not resuscitate; I35.0 Nonrheumatic aortic (valve) stenosis; R09.02 Hypoxemia; J44.9 Chronic obstructive pulmonary disease, unspecified; K21.9 Gastro-esophageal reflux disease without esophagitis; E11.69 Type 2 diabetes mellitus with other specified complication; E78.5 Hyperlipidemia, unspecified; I25.10 Atherosclerotic heart disease of native coronary artery without angina pectoris; M19.90 Unspecified osteoarthritis, unspecified site; N40.0 Benign prostatic hyperplasia without lower urinary tract symptoms; I25.2 Old myocardial infarction; Z87.891 Personal history of nicotine dependence; Z95.5 Presence of coronary angioplasty implant and graft; D64.9 Anemia, unspecified; G47.33 Obstructive sleep apnea (adult) (pediatric)
CPT/HCPCS: 36415; 71010; 71010-26; 80048; 80053; 81001; 82553; 82962; 83735; 83880; 84443; 84484; 85025; 85027; 85610; 86140; 87641; 93005; 93306; 94760; 94761; 96374; 97110-GO; 97110-GP; 97116-GP; 97162-GP; 97166-GO; 97530-GO; 97530-GP; 99222; 99232; 99239; 99285; 99285-25; A9270-GY; J1650; J1940; J3475; J7050